=== PATIENT | female | born 1955 | race Caucasian/White ===

== ENCOUNTER → 2017-06-27 | Outpatient (CLI) | payer BC ==
[~2017-06-27] MED LIST: ALPR1 PO; AMOCLA500 PO; ARMODAFINIL150 MG PO; ASPI81CH PO; ATOR40TA PO; Amantadine100 M1 PO; Bisoprolol-Hct1 EAC1 PO; CALTRATE 600 +1 EACH PO; CHOL10002 PO; COPAXONE40 MG/1 ML SC; Estrace Vagin42.5 GM TOP; LEVSOD125 PO; ONDA4ODT MM; Omeprazole20 M1 PO; PROP80ER PO; UBID10 PO; VENL75ER PO; Xyzal5 MG PO
== END | disposition home or self-care (01) ==
LOC: LAB 07:27 → LAB SHORT 07:27
DX: D22.72 Melanocytic nevi of left lower limb, including hip (principal)
CPT/HCPCS: 88305

== ENCOUNTER 2017-10-11 07:47 | Day surgery (SDC) | payer BC ==
[2017-10-10 17:47] LABS: Hematocrit 23.9 % (33.0-51.0); Mean Corpuscular HGB 25.6 pg (26.0-34.0); Mean Corpuscular HGB Conc 29.3 g/dL (31.5-36.5); Mean Corpuscular Volume 88 fL (80-100); Mean Platelet Volume 9.7 fL (9.1-12.4); Platelet Count 301 K/mm3 (150-400); RDW Coefficient Variation 17.9 % (11.7-14.2); RDW Standard Deviation 56.7 fL (35.1-46.3); Red Blood Cell Count 2.73 M/mm3 (3.80-5.20); White Blood Cell Count 6.66 K/mm3 (4.00-11.30)
[2017-10-10 18:12] LABS: Alanine Aminotransfer (ALT/SGP 62 U/L (12-78); Albumin, Blood 2.8 g/dL (3.4-5.0); Albumin/Globulin Ratio 0.9 (0.8-1.8); Alk Phos 120 U/L (50-136); Amylase, Blood 28 U/L (25-115); Anion Gap 4 mmol/L (6-16); Aspartate Aminotrans (AST/SGOT 50 U/L (12-37); Bilirubin, Total 0.4 mg/dL (0.1-1.0); Blood Urea Nitrogen 5 mg/dL (8-24); Bun/Creatinine Ratio 6.5 (12.0-20.0); CO2, Blood 30 mmol/L (21-32); Calcium, Blood 8.2 mg/dL (8.5-10.1); Chloride, Blood 101 mmol/L (98-108); Creatinine, Blood 0.77 mg/dL (0.40-1.00); Globulin, Blood 3.2 g/dL (2.2-4.0); Glomerular Filtration Rate >60 (60-); Glucose, Blood 119 mg/dL (70-99); Potassium, Blood 3.4 mmol/L (3.5-5.5); Sodium, Blood 135 mmol/L (136-145)
[~2017-10-11 07:47] MED LIST changes: -AMOCLA500 PO; -ASPI81CH PO; -CALTRATE 600 +1 EACH PO; -CHOL10002 PO; -UBID10 PO
[2017-10-11] MEDS ORDERED: ASPI81CH PO (08:56)
[2017-10-11] MEDS ORDERED: UBID10 PO (08:57)
[2017-10-11] MEDS ORDERED: AMOCLA500 PO (08:57)
[2017-10-11] MEDS ORDERED: CALTRATE 600 +1 EACH PO (08:57)
[2017-10-11] MEDS ORDERED: CHOL10002 PO (08:58)
== END 2017-10-11 13:07 | disposition home or self-care (01) ==
LOC: ATC 07:47
PROVIDERS: Surgery Surgical Oncology
DX: D64.9 Anemia, unspecified (principal); C43.59 Malignant melanoma of other part of trunk; Z79.899 Other long term (current) drug therapy
CPT/HCPCS: 36415; 36430; 80053; 82150; 82533; 82670; 83690; 84439; 84443; 85027; 86850; 86900; 86901; 86923; J1642; J7030; P9016; Q0163

== ENCOUNTER → 2018-08-23 | Outpatient (CLI) | payer BC ==
[~2018-08-23] MED LIST changes: +AMOCLA500 PO; +ASPI81CH PO; +CALTRATE 600 +1 EACH PO; +CHOL10002 PO; +UBID10 PO
== END | disposition home or self-care (01) ==
LOC: LAB 16:10 → LAB SHORT 16:10
DX: R30.0 Dysuria (principal)
CPT/HCPCS: 87077; 87086; 87186

== ENCOUNTER → 2018-09-06 | Outpatient (CLI) | payer BC | END | disposition home or self-care (01) | LOC: LAB SHORT 14:59 → LAB 14:59 | DX: R30.0 Dysuria (principal) | CPT/HCPCS: 87077; 87086; 87186 ==

== ENCOUNTER 2019-03-29 16:25 | Inpatient (IN) | payer BC ==
[~2019-03-29] VITALS: Ht 165 cm; Wt 91.3 kg
[~2019-03-29 16:25] MED LIST changes: +DOCU100 PO; +HYDCOR10 PO; +IBUP800 PO; +IRON PO; +MELO7.5 PO; +OXYC5 PO
[2019-04-02] MEDS ORDERED: OPDIVO40 MG/4 ML IV (06:33)
--- NOTE | 2019-04-02 07:38 | NUR ---
History, Chart, Medications and Allergies reviewed before start of procedure.Patient confirms NPO status and agrees with scheduled surgery. Patient reports completing Chlorhexadine shower X2 prior to admission to hospital.Surgical site prepped with 2% Chlorhexidine cloth wipe.
--- NOTE | 2019-04-02 19:42 | NUR ---
SHIFT SUMMARY PT EATING AND DRINKING WELL. BEEN ASSISTED WITH ADL'S PRN. PT REPORTS NUMBNESS TO R THIGH GETTING BETTER. DR Rodriguez IS AWARE OF NUMBNESS TO R THIGH AREA. PT HAS VOIDED SINCE SURGERY. FAMILY IN/OUT OF ROOM. ALARM IN PLACE. PT WORKED WITH THERAPY.
--- NOTE | 2019-04-03 06:06 | NUR ---
PATIENT HAS BEEN UP TO THE BR WITH ASSISTANCE, WALKED DOWN THE HALLWAY WITH FWW AND TWO PEOPLE HOLDING THE GAIT BELT. SHE HAD MILD RT KNEE BUCKLEING AT BEGINNING OF THE WALK. PATIENT IS HAVING MORE PAIN THIS MORNING IN HER RT KNEE. NO ACUTE CHANGES.
[2019-04-03 06:21] LABS: BASOPHILS ABSOLUTE AUTO 0.02 K/mm3 (0.00-0.23); BASOPHILS PERCENT AUTO 0 % (0-2); EOSINOPHILS ABSOLUTE AUTO 0.04 K/mm3 (0.00-0.68); EOSINOPHILS PERCENT AUTO 1 % (0-6); Hematocrit 26.4 % (33.0-51.0); Hemoglobin 8.3 g/dL (11.5-16.0); IMMATURE GRAN ABSOLUTE AUTO 0.04 K/mm3 (0.00-0.10); IMMATURE GRAN PERCENT AUTO 1 % (0-1); LYMPHOCYTES ABSOLUTE AUTO 1.61 K/mm3 (0.84-5.20); LYMPHOCYTES PERCENT AUTO 19 % (21-46); MONOCYTES ABSOLUTE AUTO 1.03 K/mm3 (0.16-1.47); MONOCYTES PERCENT AUTO 12 % (4-13); Mean Corpuscular HGB 31.2 pg (26.0-34.0); Mean Corpuscular HGB Conc 31.4 g/dL (31.5-36.5); Mean Corpuscular Volume 99 fL (80-100); Mean Platelet Volume 9.9 fL (9.1-12.4); NEUTROPHILS ABSOLUTE AUTO 5.73 K/mm3 (1.96-9.15); NEUTROPHILS PERCENT AUTO 68 % (41-73); Platelet Count 164 K/mm3 (150-400); RDW Coefficient Variation 14.6 % (11.7-14.2); RDW Standard Deviation 52.1 fL (35.1-46.3); Red Blood Cell Count 2.66 M/mm3 (3.80-5.20); White Blood Cell Count 8.47 K/mm3 (4.00-11.30)
[2019-04-03 06:45] LABS: Anion Gap 8 mmol/L (6-16); Blood Urea Nitrogen 14 mg/dL (8-24); Bun/Creatinine Ratio 17.3 (12.0-20.0); CO2, Blood 26 mmol/L (21-32); Calcium, Blood 7.9 mg/dL (8.5-10.1); Chloride, Blood 107 mmol/L (98-108); Creatinine, Blood 0.81 mg/dL (0.40-1.00); Glomerular Filtration Rate >60 (60-); Glucose, Blood 115 mg/dL (70-99); Magnesium, Blood 1.8 mg/dL (1.6-2.4); Potassium, Blood 3.5 mmol/L (3.5-5.5); Sodium, Blood 141 mmol/L (136-145)
[2019-04-03] MEDS ORDERED: OXYC5 PO (15:28)
[2019-04-03] MEDS ORDERED: ASPI325EC PO (15:29)
--- NOTE | 2019-04-03 16:21 | NUR ---
DISCHARGE PT LEFT FOR HOME VIA WHEELCHAIR. LEFT WITH . DISCHARGE INSTRUCTIONS GONE OVER WITH PATIENT AND , DRESSING CHANGED BEFORE PT LEFT. EXTRA DRESSINGS SENT HOME WITH PATIENT. PRESCRIPTION GIVEN TO PATIENT. PATIENT MEDICATED FOR PAIN BEFORE LEAVING. TOLERATED THERAPY WELL TODAY. ABLE TO AMBULATE WELL.
== END 2019-04-03 16:16 | disposition home or self-care (01) | DRG 470 ==
LOC: SURS 04-02 05:53 → PRE IP 04-02 07:30 → SURS 04-02 11:22
PROVIDERS: ADMIT Orthopaedic Surgery
PROC: 0SR903Z Replacement of Right Hip Joint with Ceramic Synthetic Substitute, Open Approach (ICD-10-PCS; principal; 2019-04-02 07:30)
DX: M16.11 Unilateral primary osteoarthritis, right hip (principal); E03.9 Hypothyroidism, unspecified; I10 Essential (primary) hypertension; F41.9 Anxiety disorder, unspecified; Z87.891 Personal history of nicotine dependence
CPT/HCPCS: 36415; 72170; 80048; 83735; 85025; 86850; 86900; 86901; 88300; 97110; 97116; 97161; 97165; 97530; 97535; C1713; C1776; J0171; J0690; J0735; J1100; J1720; J1885; J2250; J2370; J2405; J2704; J2795; J3010; J7120

== ENCOUNTER → 2019-04-20 | Outpatient (CLI) | payer BC ==
[~2019-04-20] MED LIST changes: +ASPI325EC PO; +OPDIVO40 MG/4 ML IV
== END | disposition home or self-care (01) ==
LOC: LAB SHORT 14:21 → LAB EV 14:21
DX: N39.0 Urinary tract infection, site not specified (principal)
CPT/HCPCS: 87077; 87086; 87186

== ENCOUNTER 2019-06-22 06:21 | Emergency (ER) | payer BC ==
[~2019-06-22] VITALS: Ht 167.6 cm; Wt 83.5 kg
[2019-06-22] MEDS ORDERED: Aspir 8181 MG PO (07:16)
[2019-06-22] MEDS ORDERED: GLATIRAMER40 MG/1 ML SQ (07:18)
[2019-06-22] MEDS ORDERED: ALPR1 PO (07:18)
[2019-06-22] MEDS ORDERED: IBU800 MG PO (07:19)
[2019-06-22 08:50] LABS: BASOPHILS PERCENT AUTO 0 % (0-2); EOSINOPHILS PERCENT AUTO 0 % (0-6); Hematocrit 33.6 % (33.0-51.0); Hemoglobin 10.5 g/dL (11.5-16.0); IMMATURE GRAN ABSOLUTE AUTO 0.02 K/mm3 (0.00-0.10); IMMATURE GRAN PERCENT AUTO 0 % (0-1); LYMPHOCYTES ABSOLUTE AUTO 0.83 K/mm3 (0.84-5.20); LYMPHOCYTES PERCENT AUTO 17 % (21-46); MONOCYTES ABSOLUTE AUTO 0.51 K/mm3 (0.16-1.47); MONOCYTES PERCENT AUTO 10 % (4-13); Mean Corpuscular HGB 30.9 pg (26.0-34.0); Mean Corpuscular HGB Conc 31.3 g/dL (31.5-36.5); Mean Corpuscular Volume 99 fL (80-100); Mean Platelet Volume 10.6 fL (9.1-12.4); NEUTROPHILS ABSOLUTE AUTO 3.68 K/mm3 (1.96-9.15); NEUTROPHILS PERCENT AUTO 73 % (41-73); Platelet Count 143 K/mm3 (150-400); RDW Coefficient Variation 14.2 % (11.7-14.2); RDW Standard Deviation 51.5 fL (35.1-46.3); White Blood Cell Count 5.04 K/mm3 (4.00-11.30)
[2019-06-22 09:07] LABS: Anion Gap 7 mmol/L (6-16); Blood Urea Nitrogen 11 mg/dL (8-24); Bun/Creatinine Ratio 15.9 (12.0-20.0); CO2, Blood 24 mmol/L (21-32); Chloride, Blood 102 mmol/L (98-108); Creatinine, Blood 0.69 mg/dL (0.40-1.00); Glomerular Filtration Rate >60 (60-); Glucose, Blood 110 mg/dL (70-99); Potassium, Blood 4.1 mmol/L (3.5-5.5); Sodium, Blood 133 mmol/L (136-145)
[2019-06-22 09:12] LABS: Influenza A Positive (NEGATIVE); Influenza B Negative (NEGATIVE)
[2019-06-22] MEDS ORDERED: Guaifenesin-Co118 ML PO (09:24)
[2019-06-22] MEDS ORDERED: Tamiflu75 MG PO (09:24)
== END 2019-06-22 09:37 | disposition home or self-care (01) ==
LOC: ER 06:21
PROVIDERS: Physician Assistant
DX: J10.1 Influenza due to other identified influenza virus with other respiratory manifestations (principal); Z91.041 Radiographic dye allergy status; Z79.899 Other long term (current) drug therapy; Z79.82 Long term (current) use of aspirin; Z87.891 Personal history of nicotine dependence
CPT/HCPCS: 36415; 71046; 80048; 85025; 87081; 87430; 87804; 99283-25; J7030

== ENCOUNTER 2020-10-30 03:16 | Inpatient (IN) | payer BC ==
[~2020-10-30] VITALS: Ht 165.1 cm; Wt 88.0 kg
[~2020-10-30 03:16] MED LIST changes: +Aspir 8181 MG PO; +COPAXONE40 MG/1 ML; +DESVENLAFAXINE100 MG PO; +GLATIRAMER40 MG/1 ML SQ; +Guaifenesin-Co118 ML PO; +IBU800 MG PO; +Inderal40 MG PO; +Tamiflu75 MG PO
[2020-10-30 03:49] LABS: BASOPHILS ABSOLUTE AUTO 0.02 K/mm3 (0.00-0.23); BASOPHILS PERCENT AUTO 1 % (0-2); EOSINOPHILS ABSOLUTE AUTO 0.02 K/mm3 (0.00-0.68); EOSINOPHILS PERCENT AUTO 1 % (0-6); Hematocrit 39.8 % (33.0-51.0); Hemoglobin 12.6 g/dL (11.5-16.0); IMMATURE GRAN ABSOLUTE AUTO 0.01 K/mm3 (0.00-0.10); IMMATURE GRAN PERCENT AUTO 0 % (0-1); LYMPHOCYTES ABSOLUTE AUTO 0.52 K/mm3 (0.84-5.20); LYMPHOCYTES PERCENT AUTO 17 % (21-46); MONOCYTES ABSOLUTE AUTO 0.36 K/mm3 (0.16-1.47); MONOCYTES PERCENT AUTO 12 % (4-13); Mean Corpuscular HGB 29.3 pg (26.0-34.0); Mean Corpuscular HGB Conc 31.7 g/dL (31.5-36.5); Mean Corpuscular Volume 93 fL (80-100); NEUTROPHILS ABSOLUTE AUTO 2.13 K/mm3 (1.96-9.15); NEUTROPHILS PERCENT AUTO 70 % (41-73); Platelet Count 116 K/mm3 (150-400); RDW Coefficient Variation 15.2 % (11.7-14.2); RDW Standard Deviation 51.8 fL (35.1-46.3); White Blood Cell Count 3.06 K/mm3 (4.00-11.30)
[2020-10-30 04:06] LABS: Albumin, Blood 3.6 g/dL (3.4-5.0); Albumin/Globulin Ratio 1.1 (0.8-1.8); Bilirubin, Total 0.3 mg/dL (0.1-1.0); Bun/Creatinine Ratio 16.1 (12.0-20.0); Calcium, Blood 8.6 mg/dL (8.5-10.1); Creatinine, Blood 0.99 mg/dL (0.40-1.00); Globulin, Blood 3.2 g/dL (2.2-4.0); Potassium, Blood 3.8 mmol/L (3.5-5.5); Total Protein, Blood 6.8 g/dL (6.4-8.2)
[2020-10-30 05:40] LABS: Source, Urine Clean Catch
[2020-10-30 05:46] LABS: Appearance, Urine Hazy (Clear); Bilirubin, Urine Neg (Neg); Blood, Urine 1+ (Neg); Color, Urine Yellow (P-Yellow); Glucose Qualitative, Urine Neg (Neg); Ketones, Urine Neg (Neg); Leukocyte Esterase, Urine 3+ (Neg); Nitrite, Urine Pos (Neg); Protein, Urine 1+ (Neg); Specific Gravity, Urine 1.015 (1.003-1.022); Urobilinogen, Urine NORM (Normal)
[2020-10-30 05:58] LABS: White Blood Cells, Urine 25-50 /hpf (0-5)
[2020-10-30 05:59] LABS: Bacteria Many /hpf; Squamous Epithelial Cells Few /hpf (Few); Transitional Epithelial Cells Few /hpf (0-Rare)
[2020-10-30 10:28] LABS: Source, Urine Catheter
[2020-10-30 10:45] LABS: Appearance, Urine Hazy (Clear); Bilirubin, Urine Neg (Neg); Blood, Urine 2+ (Neg); Color, Urine Yellow (P-Yellow); Glucose Qualitative, Urine Neg (Neg); Ketones, Urine 1+ (Neg); Leukocyte Esterase, Urine 3+ (Neg); Nitrite, Urine Neg (Neg); Protein, Urine 2+ (Neg); Urobilinogen, Urine NORM (Normal)
[2020-10-30 10:57] LABS: White Blood Cells, Urine TNTC /hpf (0-5)
[2020-10-30 10:58] LABS: Bacteria Mod /hpf; Squamous Epithelial Cells Not Seen /hpf (Few)
--- NOTE | 2020-10-30 11:38 | NUR ---
RECIEVED REPORT FROM STEVE WHEELER RN, AT 0820. PATIENT ARRIVED TO ROOM 339 @ 0837 WITH AT BEDSIDE. ADMISSION ASSESSMENT, H&P AND MED REC COMPLETED WITH THE ASSISTANCE OF PATIENTS . IV FLUIDS RUNNING PER EMAR. U/A COLLECTED VIA STRAIGHT CATH AND SENT TO THE LAB. CALL LIGHT WITHIN REACH.
--- NOTE | 2020-10-30 17:14 | NUR ---
PATIENT PLEASANT AND COOPERATIVE WITH STAFF. DENIES PAIN AND DISCOMFORT HOWEVER VERY LETHARGIC AND WEAK. BEDREST AT THIS TIME. MIXED CONTINENT/INCONTINENT WITH BLADDER AND BOWELS. BP WAS ELEVATED UPON ADMISSION TO THE FLOOR BUT HAS SINCE COME DOWN AND VITALS ARE STABLE. BROUGHT IN PATIENTS PRISTIQ MEDICATION FROM HOME AND IT WAS VERIFIED BY PHARMACY. PATIENT RESTING IN BED AT THIS TIME. CALL LIGHT IN REACH.
--- NOTE | 2020-10-31 03:48 | NUR ---
SHIFT SUMMARY: AAOX3. AFEB. PT FEELING BETTER TONIGHT, LESS LETHARGIC, SPEAKING MORE. NO LONGER DIAPHORETIC. STATES SHE IS FEELING STRONGER AND IS ASKING ABOUT GETTING UP OOB. ENCOURAGED PT TO WAIT UNTIL CLEARED BY THERAPY. USING BEDPAN. CONTINENT. IV FLUIDS INFUSING PER ORDERS. MED X 1 FOR HEADACHE. SLEEPING INTERMITTENTLY THROUGH THE NIGHT. NO ACUTE OVERNIGHT EVENTS. WCTM.
[2020-10-31 05:33] LABS: Hematocrit 36.7 % (33.0-51.0); Hemoglobin 11.6 g/dL (11.5-16.0); Mean Corpuscular HGB 29.1 pg (26.0-34.0); Mean Corpuscular HGB Conc 31.6 g/dL (31.5-36.5); Mean Corpuscular Volume 92 fL (80-100); Mean Platelet Volume 10.2 fL (9.1-12.4); Platelet Count 105 K/mm3 (150-400); RDW Coefficient Variation 15.1 % (11.7-14.2); Red Blood Cell Count 3.98 M/mm3 (3.80-5.20); White Blood Cell Count 2.26 K/mm3 (4.00-11.30)
[2020-10-31 05:51] LABS: BAND PERCENT MAN 9 % (0-8); BASOPHILS ABSOLUTE MAN 0.04 K/mm3 (0.00-0.23); BASOPHILS PERCENT MAN 2 % (0-2); EOSINOPHILS ABSOLUTE MAN 0.09 K/mm3 (0.00-0.68); EOSINOPHILS PERCENT MAN 4 % (0-6); LYMPHOCYTES ABSOLUTE MAN 0.54 K/mm3 (0.84-5.20); LYMPHOCYTES PERCENT MAN 24 % (21-46); MONOCYTES ABSOLUTE MAN 0.29 K/mm3 (0.16-1.47); MONOCYTES PERCENT MAN 13 % (4-13); NEUTROPHILS ABSOLUTE MAN 1.28 K/mm3 (1.96-9.15); SEG NEUTROPHILS PERCENT MAN 48 % (41-73); TOTAL CELLS COUNTED 100
[2020-10-31 05:58] LABS: Anion Gap 7 mmol/L (6-16); Blood Urea Nitrogen 13 mg/dL (8-24); CO2, Blood 27 mmol/L (21-32); Calcium, Blood 8.4 mg/dL (8.5-10.1); Chloride, Blood 101 mmol/L (98-108); Creatinine, Blood 0.81 mg/dL (0.40-1.00); Glomerular Filtration Rate >60 (60-); Glucose, Blood 98 mg/dL (70-99); Potassium, Blood 3.3 mmol/L (3.5-5.5); Sodium, Blood 135 mmol/L (136-145)
--- NOTE | 2020-10-31 17:09 | NUR ---
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
--- NOTE | 2020-11-01 03:32 | NUR ---
SHIFT SUMMARY: VSS. AFEB. AAOX4. INDEPENDENT IN ROOM. REPORTS LOW ABD PAIN IS RESOLVED. DENIES DYSURIA. SLEEPING INTERMITTENTLY. MEDICATED FOR ANXIETY PER PT REQUEST X 2. NO ACUTE OVERNIGHT EVENTS. PT STATES SHE IS FEELING MUCH BETTER IN GENERAL. WCTM.
[2020-11-01] MEDS ORDERED: VISBIOME 112.51 EACH PO (10:30)
[2020-11-01] MEDS ORDERED: ASPIR 8181 M1 PO (10:30)
[2020-11-01] MEDS ORDERED: CEFU500T30 PO (10:31)
--- NOTE | 2020-11-01 10:58 | NUR ---
SUMMARY/DISCHARGE PT DISCHARGED TO HOME, PT AND SPOUSE VERBALIZED UNDERSTANDING OF DISCHARGE INSTRUCTIONS REGARDING FOLLOW UP AND MEDICATONS, PTS MEDS FAXED TO [facility]IMARY [facility] IS CLOSED, PT STATES SHE WILL CALL HER PCP OFFICE MONDAY FOR FOLLOW UP, PT TAKEN OUT SAFELY VIA WHEELCHAIR
== END 2020-11-01 10:54 | disposition home or self-care (01) | DRG 872 ==
LOC: ER 03:16 → MEDS 07:41
PROVIDERS: Emergency Medicine; Internal Medicine; ADMIT Family Medicine
DX: A41.51 Sepsis due to Escherichia coli [E. coli] (principal); N39.0 Urinary tract infection, site not specified; E27.40 Unspecified adrenocortical insufficiency; Z20.822 Contact with and (suspected) exposure to COVID-19; E03.9 Hypothyroidism, unspecified; C43.9 Malignant melanoma of skin, unspecified; G35 Multiple sclerosis; K58.9 Irritable bowel syndrome, unspecified; Z96.641 Presence of right artificial hip joint; Z90.49 Acquired absence of other specified parts of digestive tract; Z90.89 Acquired absence of other organs; Z90.710 Acquired absence of both cervix and uterus; Z79.82 Long term (current) use of aspirin; Z79.899 Other long term (current) drug therapy
CPT/HCPCS: 36415; 70450; 71046; 80048; 80053; 81001; 83605; 85025; 87040; 87077; 87086; 87186; 93005; 93010; 96365; 97110; 97162; 97166; 97530; 99285-25; A9270; J0696; J1650; J7050; J7120

== ENCOUNTER → 2021-03-20 | Outpatient (CLI) | payer BC ==
[~2021-03-20] MED LIST changes: +ASPIR 8181 M1 PO; +CEFU500T30 PO; +VISBIOME 112.51 EACH PO
== END | disposition home or self-care (01) ==
LOC: LAB SHORT 16:23 → LAB 16:23
DX: N39.0 Urinary tract infection, site not specified (principal)
CPT/HCPCS: 87077; 87086; 87186

== ENCOUNTER 2021-11-17 16:43 | Emergency (ER) | payer MEDICARE ==
[~2021-11-17] VITALS: Ht 167.6 cm; Wt 102.1 kg
[~2021-11-17 16:43] MED LIST changes: +ALBU90OI INH; +AMAN100; -Amantadine100 M1 PO; +CALTRATE 600+D1 EAC1 PO; +COPAXONE40 MG/1 ML SQ; +COQ1050 MG PO; +Colace100 MG PO; +Estrace Vagin42.5 GM PV; +GLUC500 PO; +MAGCIT300; +MERIBIN5 MG PO; +MIRT15 PO; +MOBIC15 MG PO; +NASACORT10.8 ML; +NUVIGIL150 MG PO; +Prednisone10 MG PO; +Seroquel Xr50 MG PO; +VITAMIN D5000 UNIT PO; +Vitamin B-Comp1 EACH; +YERVOY50 MG/101 IV
[2021-11-17 17:26] LABS: BASOPHILS ABSOLUTE AUTO 0.04 K/mm3 (0.00-0.23); BASOPHILS PERCENT AUTO 1 % (0-2); EOSINOPHILS ABSOLUTE AUTO 0.07 K/mm3 (0.00-0.68); EOSINOPHILS PERCENT AUTO 1 % (0-6); Hematocrit 44.1 % (33.0-51.0); Hemoglobin 14.3 g/dL (11.5-16.0); IMMATURE GRAN ABSOLUTE AUTO 0.06 K/mm3 (0.00-0.10); IMMATURE GRAN PERCENT AUTO 1 % (0-1); LYMPHOCYTES PERCENT AUTO 14 % (21-46); MONOCYTES ABSOLUTE AUTO 0.59 K/mm3 (0.16-1.47); MONOCYTES PERCENT AUTO 9 % (4-13); Mean Corpuscular HGB 31.9 pg (26.0-34.0); Mean Corpuscular HGB Conc 32.4 g/dL (31.5-36.5); Mean Corpuscular Volume 98 fL (80-100); NEUTROPHILS ABSOLUTE AUTO 4.68 K/mm3 (1.96-9.15); NEUTROPHILS PERCENT AUTO 74 % (41-73); Platelet Count 219 K/mm3 (150-400); RDW Coefficient Variation 15.2 % (11.7-14.2); RDW Standard Deviation 54.4 fL (35.1-46.3); Red Blood Cell Count 4.48 M/mm3 (3.80-5.20); White Blood Cell Count 6.34 K/mm3 (4.00-11.30)
[2021-11-17 17:44] LABS: Albumin, Blood 3.7 g/dL (3.4-5.0); Bilirubin, Total 0.5 mg/dL (0.1-1.0); Bun/Creatinine Ratio 14.4 (12.0-20.0); Creatinine, Blood 0.9 mg/dL (0.40-1.00); Globulin, Blood 3.6 g/dL (2.2-4.0); Potassium, Blood 3.7 mmol/L (3.5-5.5); Total Protein, Blood 7.3 g/dL (6.4-8.2)
[2021-11-17] MEDS ORDERED: METO50ER PO (21:20)
[2021-11-17] MEDS ORDERED: VENLAFAXINE HC150 MG PO (21:20)
[2021-11-17] MEDS ORDERED: PREG150 PO (21:21)
[2021-11-17 21:52] LABS: Source, Urine Clean Catch
[2021-11-17 21:58] LABS: Bilirubin, Urine Neg (Neg); Blood, Urine Neg (Neg); Glucose Qualitative, Urine Neg (Neg); Ketones, Urine Neg (Neg); Leukocyte Esterase, Urine 1+ (Neg); Nitrite, Urine Pos (Neg); Protein, Urine Neg (Neg); Urobilinogen, Urine NORM (Normal)
[2021-11-17 21:59] LABS: Appearance, Urine Clear (Clear); Color, Urine Pale Yellow (P-Yellow)
[2021-11-17 22:00] LABS: Bacteria Many /hpf; Red Blood Cells, Urine Not Seen /hpf (0-2); Squamous Epithelial Cells Not Seen /hpf (Few)
[2021-11-17] MEDS ORDERED: CEPH500 PO (22:08)
== END 2021-11-17 22:30 | disposition home or self-care (01) ==
LOC: ER 16:43
PROVIDERS: Physician Assistant
DX: R19.7 Diarrhea, unspecified (principal); R53.1 Weakness; N39.0 Urinary tract infection, site not specified; G35 Multiple sclerosis; Z79.899 Other long term (current) drug therapy; Z79.52 Long term (current) use of systemic steroids; Z96.641 Presence of right artificial hip joint; Z91.041 Radiographic dye allergy status; Z85.820 Personal history of malignant melanoma of skin
CPT/HCPCS: 36415; 80053; 81001; 85025; 96360; 99284-25; A9270; J7030

== ENCOUNTER 2021-12-26 18:34 | Emergency (ER) | payer SELFPAY ==
[~2021-12-26] VITALS: Ht 167.6 cm; Wt 88.5 kg
[~2021-12-26 18:34] MED LIST changes: +CEPH500 PO; +METO50ER PO; +PREG150 PO; +VENLAFAXINE HC150 MG PO
[2021-12-26 19:40] LABS: Source, Urine Clean Catch
[2021-12-26 19:42] LABS: Appearance, Urine Clear (Clear); Bilirubin, Urine Neg (Neg); Blood, Urine 2+ (Neg); Color, Urine Yellow (P-Yellow); Glucose Qualitative, Urine Neg (Neg); Ketones, Urine Neg (Neg); Leukocyte Esterase, Urine 3+ (Neg); Nitrite, Urine Neg (Neg); Protein, Urine Neg (Neg); Specific Gravity, Urine 1.015 (1.003-1.022); Urobilinogen, Urine NORM (Normal)
[2021-12-26 19:49] LABS: Bacteria Many /hpf; Squamous Epithelial Cells Mod /hpf (Few); White Blood Cells, Urine 25-50 /hpf (0-5)
[2021-12-26] MEDS ORDERED: LEVO750 PO (20:40)
== END 2021-12-26 20:53 | disposition home or self-care (01) ==
LOC: ER 18:34
PROVIDERS: Physician Assistant
DX: N39.0 Urinary tract infection, site not specified (principal); Z79.899 Other long term (current) drug therapy; Z79.52 Long term (current) use of systemic steroids; Z87.891 Personal history of nicotine dependence
CPT/HCPCS: 81001; 87077; 87086; 87186; A9270

== ENCOUNTER → 2022-11-23 | Outpatient (CLI) | payer MEDICARE, OTHER ==
[~2022-11-23] MED LIST changes: +CEFD300 PO; +LEVO750 PO
== END | disposition home or self-care (01) ==
LOC: LAB 15:03 → LAB SHORT 15:03
DX: N39.0 Urinary tract infection, site not specified (principal)
CPT/HCPCS: 87086

== ENCOUNTER → 2024-04-08 | Outpatient (CLI) | payer OTHER | END | disposition home or self-care (01) | LOC: LAB SHORT 15:34 → LAB 15:34 | DX: N39.0 Urinary tract infection, site not specified (principal) | CPT/HCPCS: 87077; 87086; 87186 ==

== ENCOUNTER 2024-07-14 13:51 | Observation (INO) | payer BC ==
[~2024-07-14] VITALS: Ht 167.6 cm; Wt 72.9 kg
[~2024-07-14 13:51] MED LIST changes: +ACETAMINOPHEN500 M2 PO; +AMAN100 PO; +Budeprion Xl300 MG PO; +DESV50 PO; +DULO60 PO; +EUTHYROX125 MCG PO; +FAMO20 PO; +FERSU300 PO; +FOLI1 PO; -HYDCOR10 PO; +HYDCOR20 PO; -LEVSOD125 PO; +METO100ER PO; +MIRABEGRON ER25 MG PO; +MYRBETRIQ25 MG PO; +Magnesium250 MG PO; +Methocarbamol750 MG PO; +NEBI5 PO; +OMEP20ER PO; -Omeprazole20 M1 PO; +PHENA200 PO; +PREG200 PO; +Primidone50 MG PO; +Robaxin750 MG PO; +SENNA LAXATIVE8.6 MG PO; +VENL150ER PO; +Vitamin D1000 UNI1 PO
[2024-07-14 14:40] LABS: BASOPHILS ABSOLUTE AUTO 0.11 K/mm3 (0.00-0.23); BASOPHILS PERCENT AUTO 1 % (0-2); EOSINOPHILS ABSOLUTE AUTO 0.32 K/mm3 (0.00-0.68); EOSINOPHILS PERCENT AUTO 3 % (0-6); Hemoglobin 9.7 g/dL (11.5-16.0); IMMATURE GRAN ABSOLUTE AUTO 0.04 K/mm3 (0.00-0.10); IMMATURE GRAN PERCENT AUTO 0 % (0-1); LYMPHOCYTES PERCENT AUTO 27 % (21-46); MONOCYTES ABSOLUTE AUTO 0.78 K/mm3 (0.16-1.47); MONOCYTES PERCENT AUTO 8 % (4-13); Mean Corpuscular HGB 29.5 pg (26.0-34.0); Mean Corpuscular HGB Conc 31.3 g/dL (31.5-36.5); Mean Corpuscular Volume 94 fL (80-100); NEUTROPHILS ABSOLUTE AUTO 5.97 K/mm3 (1.96-9.15); NEUTROPHILS PERCENT AUTO 60 % (41-73); Platelet Count 414 K/mm3 (150-400); RDW Coefficient Variation 13.8 % (11.7-14.2); RDW Standard Deviation 47.4 fL (35.1-46.3); Red Blood Cell Count 3.29 M/mm3 (3.80-5.20); White Blood Cell Count 9.92 K/mm3 (4.00-11.30)
[2024-07-14 14:54] LABS: Influenza A, PCR NEGATIVE (NEGATIVE); Influenza B, PCR NEGATIVE (NEGATIVE); Resp Syncytial Virus, PCR NEGATIVE (NEGATIVE); SARS-Cov-2 (COVID-19) PCR, MMC NEGATIVE (NEGATIVE)
[2024-07-14 15:04] LABS: Albumin, Blood 3.7 g/dL (3.4-5.0); Albumin/Globulin Ratio 1.2 (0.8-1.8); Bilirubin, Total 0.3 mg/dL (0.1-1.0); Bun/Creatinine Ratio 22.2 (12.0-20.0); Calcium, Blood 9.4 mg/dL (8.5-10.1); Creatinine, Blood 0.9 mg/dL (0.40-1.00); Magnesium, Blood 1.9 mg/dL (1.6-2.4); Potassium, Blood 4.1 mmol/L (3.5-5.5); Total Protein, Blood 6.7 g/dL (6.4-8.2)
[2024-07-14] MEDS ORDERED: PLAVIX75 MG PO (16:48)
[2024-07-14] MEDS ORDERED: TELMISARTAN40 MG PO (16:48)
[2024-07-14] MEDS ORDERED: Cortef20 MG PO (16:52)
[2024-07-14] MEDS ORDERED: PROBIOTIC ACID1 EAC7 PO (16:54)
[2024-07-14] MEDS ORDERED: NS 1,000 ML IV SCH ×3 (17:55→23:05)
[2024-07-14] MEDS ORDERED: FLU VACC TS2024-25(6MOS UP)/PF 45 MCG/0.5 ML SYRINGE IM ONE (18:50)
[2024-07-14] MEDS ORDERED: Ondansetron HCl 2 MG / ML 2ML Vial IV PRN (18:50)
[2024-07-14] MEDS ORDERED: FentaNYL Citrate 50 MCG/ML 2 ML Injection IV PRN ×2 (18:50→19:55)
[2024-07-14] MEDS ORDERED: Enoxaparin 40 MG/0.4 ML SYR SC SCH (19:00)
[2024-07-14] MEDS ORDERED: MethylPREDNISolone Sod Succ 125 MG Vial IV ONE (19:20)
[2024-07-14] MEDS ORDERED: DiphenhydrAMINE HCl 50 MG/ML 1ML Vial IV ONE (19:25)
[2024-07-14] MEDS ORDERED: Aspirin 325 MG Tab PO ONE (19:25)
[2024-07-14] MEDS ORDERED: Nitroglycerin 0.4 MG SUBL SL PRN (20:00)
[2024-07-14] MEDS ORDERED: Pantoprazole Sodium 40 MG Injection IV SCH (20:17)
[2024-07-14] MEDS ORDERED: Mag Hydrox/Al Hydrox/Simeth 72 ML,Lidocaine 2% Viscous Soln 36 ML,Atropine/Scopalam/Hyo... PO PRN (20:20)
[2024-07-14] MEDS ORDERED: Acetaminophen 325 MG TABLET PO PRN (23:10)
[2024-07-15] VITALS (11 sets, daily range): BP systolic 98–176; BP diastolic 47–143
[2024-07-15] MEDS ORDERED: Levothyroxine Sodium 0.125 MG Tab PO SCH (06:00)
[2024-07-15] MEDS ORDERED: Trospium Chloride 20 MG Tab PO SCH (06:00)
[2024-07-15 07:27] LABS: BASOPHILS ABSOLUTE AUTO 0.02 K/mm3 (0.00-0.23); BASOPHILS PERCENT AUTO 0 % (0-2); EOSINOPHILS PERCENT AUTO 0 % (0-6); Hemoglobin 8.3 g/dL (11.5-16.0); IMMATURE GRAN ABSOLUTE AUTO 0.05 K/mm3 (0.00-0.10); IMMATURE GRAN PERCENT AUTO 1 % (0-1); LYMPHOCYTES ABSOLUTE AUTO 1.01 K/mm3 (0.84-5.20); LYMPHOCYTES PERCENT AUTO 10 % (21-46); MONOCYTES ABSOLUTE AUTO 0.05 K/mm3 (0.16-1.47); MONOCYTES PERCENT AUTO 1 % (4-13); Mean Corpuscular HGB 30.1 pg (26.0-34.0); Mean Corpuscular HGB Conc 31.9 g/dL (31.5-36.5); Mean Corpuscular Volume 94 fL (80-100); Mean Platelet Volume 10.5 fL (9.1-12.4); NEUTROPHILS PERCENT AUTO 89 % (41-73); Platelet Count 336 K/mm3 (150-400); RDW Coefficient Variation 14.1 % (11.7-14.2); RDW Standard Deviation 47.4 fL (35.1-46.3); Red Blood Cell Count 2.76 M/mm3 (3.80-5.20); White Blood Cell Count 10.53 K/mm3 (4.00-11.30)
[2024-07-15 07:35] LABS: Albumin, Blood 3.4 g/dL (3.4-5.0); Albumin/Globulin Ratio 1.2 (0.8-1.8); Bilirubin, Total 0.2 mg/dL (0.1-1.0); Bun/Creatinine Ratio 28.9 (12.0-20.0); Calcium, Blood 8.4 mg/dL (8.5-10.1); Creatinine, Blood 0.69 mg/dL (0.40-1.00); Globulin, Blood 2.8 g/dL (2.2-4.0); Potassium, Blood 3.9 mmol/L (3.5-5.5); Total Protein, Blood 6.2 g/dL (6.4-8.2)
[2024-07-15] MEDS ORDERED: Aspirin 81 MG TabEC PO SCH (09:00)
[2024-07-15] MEDS ORDERED: Amantadine HCl 100 MG Cap PO SCH ×2 (09:00→18:00)
[2024-07-15] MEDS ORDERED: Clopidogrel Bisulfate 75 MG Tab PO SCH (09:00)
[2024-07-15] MEDS ORDERED: Lactobacil 2-S.Thermo-Bifido 1 1 Cap PO SCH (09:00)
[2024-07-15] MEDS ORDERED: Hydrocortisone 20 MG Tab PO SCH ×2 (09:00→21:00)
[2024-07-15] MEDS ORDERED: Venlafaxine HCl 75 MG CapCR PO SCH (09:00)
[2024-07-15] MEDS ORDERED: buPROPion HCL 150 MG TAB.SR.12H PO SCH (09:00)
[2024-07-15] MEDS ORDERED: Metoprolol Succinate 50 MG TABCR PO SCH (09:00)
[2024-07-15] MEDS ORDERED: Hydrocortisone Sod Succinate 100 MG Vial IV ONE (09:55)
[2024-07-15] MEDS ORDERED: NS 250 ML IV ONE (12:38)
[2024-07-15] MEDS ORDERED: Verapamil HCL 2.5 MG/ML 2ML Injection ONE (12:38)
[2024-07-15] MEDS ORDERED: NS 1,000 ML IV ONE ×2 (12:39→13:46)
[2024-07-15] MEDS ORDERED: Nitroglycerin 2 MG/20 ML BTL ONE (12:39)
[2024-07-15] MEDS ORDERED: Heparin Sodium 1000 Units/ML 10ML MDV ONE (12:39)
[2024-07-15] MEDS ORDERED: DiphenhydrAMINE HCl 50 MG/ML 1ML Vial ONE (13:45)
[2024-07-15] MEDS ORDERED: Midazolam HCl 1MG / ML 2ML Vial ONE ×2 (13:46→13:59)
[2024-07-15] MEDS ORDERED: FentaNYL Citrate 50 MCG/ML 2 ML Injection ONE ×2 (13:46→13:59)
[2024-07-15] MEDS ORDERED: Famotidine 10 MG/ML 2ML Vial ONE (13:46)
[2024-07-15] MEDS ORDERED: Hydrocortisone Sod Succinate 100 MG Vial ONE (14:03)
[2024-07-15] MEDS ORDERED: Clopidogrel Bisulfate 300 MG Cap ONE (14:21)
--- NOTE | 2024-07-15 18:34 | NUR ---
SHIFT SUMMARY: PT IS A NEW ADMIT, ARRIVING FROM ER APPROX 1230, THEN TO RELEASE COORDINATOR APPROX 1330 AND BACK TO ROOM APPROX 1500. PT IS A&Ox4, ANSWERING QUESTIONS APPROPRIATELY, IS COOPERATIVE W/CARE. PT HAS DENIED SOB SINCE ADMISSION, O2 SATS MAINTAINED >93% ON RA. PT HAS ALSO DENIED CP, SR ON MONITOR W/RATE 70s-80s, TR BAND TO R RADIAL IN THE PROCESS OF DEFLATING (PT NEEDED TO BE FREQUENTLY REMINDED NOT TO USE HER R ARM, BUT APPEARS TO BE DOING BETTER). HEART HEALTHY DIET IN PLACE, PT EDUCATED ON LOW SODIUM DIET. PT RESTING IN BED W/FAMILY AT BEDSIDE, CALL LIGHT IN REACH.
[2024-07-15] MEDS ORDERED: Hydrocortisone 10 MG Tab PO SCH (21:00)
--- NOTE | 2024-07-15 22:53 | NUR ---
SHIFT SUMMARY- PCI SITE RECOVERED NEURO: WNL- BASELINE MS DIAGNOSIS CARDIAC: WNL-ON TELE LUNGS: WNL GI/:WNL SKIN: RIGHT RADIAL PCI SITE WITHOUT HEMATOMA PAIN. DRESSING C/D/I.
[2024-07-16] MEDS ORDERED: DiphenhydrAMINE HCL 25 MG Cap PO ONE (01:00)
[2024-07-16] MEDS ORDERED: DiphenhydrAMINE HCL 25 MG Cap PO PRN (01:00)
[2024-07-16 04:33] LABS: BASOPHILS ABSOLUTE AUTO 0.03 K/mm3 (0.00-0.23); BASOPHILS PERCENT AUTO 0 % (0-2); EOSINOPHILS ABSOLUTE AUTO 0.02 K/mm3 (0.00-0.68); EOSINOPHILS PERCENT AUTO 0 % (0-6); Hematocrit 24.3 % (33.0-51.0); Hemoglobin 7.5 g/dL (11.5-16.0); IMMATURE GRAN ABSOLUTE AUTO 0.04 K/mm3 (0.00-0.10); IMMATURE GRAN PERCENT AUTO 0 % (0-1); LYMPHOCYTES ABSOLUTE AUTO 1.53 K/mm3 (0.84-5.20); LYMPHOCYTES PERCENT AUTO 13 % (21-46); MONOCYTES ABSOLUTE AUTO 0.97 K/mm3 (0.16-1.47); MONOCYTES PERCENT AUTO 9 % (4-13); Mean Corpuscular HGB 29.4 pg (26.0-34.0); Mean Corpuscular HGB Conc 30.9 g/dL (31.5-36.5); Mean Corpuscular Volume 95 fL (80-100); Mean Platelet Volume 10.4 fL (9.1-12.4); NEUTROPHILS ABSOLUTE AUTO 8.81 K/mm3 (1.96-9.15); NEUTROPHILS PERCENT AUTO 77 % (41-73); Platelet Count 308 K/mm3 (150-400); RDW Coefficient Variation 14.5 % (11.7-14.2); RDW Standard Deviation 49.4 fL (35.1-46.3); Red Blood Cell Count 2.55 M/mm3 (3.80-5.20)
[2024-07-16 04:49] LABS: Albumin, Blood 3.4 g/dL (3.4-5.0); Albumin/Globulin Ratio 1.3 (0.8-1.8); Bilirubin, Total 0.2 mg/dL (0.1-1.0); Bun/Creatinine Ratio 32.4 (12.0-20.0); Calcium, Blood 8.9 mg/dL (8.5-10.1); Creatinine, Blood 0.93 mg/dL (0.40-1.00); Globulin, Blood 2.7 g/dL (2.2-4.0); Potassium, Blood 3.4 mmol/L (3.5-5.5); Total Protein, Blood 6.1 g/dL (6.4-8.2)
[2024-07-16 04:58] VITALS: BP 116/67
[2024-07-16] MEDS ORDERED: Pantoprazole Sodium 40 MG Tab PO SCH (06:00)
[2024-07-16 07:17] VITALS: BP 126/76
[2024-07-16] MEDS ORDERED: Potassium Chloride 20 MEQ TabCR PO ONE (09:25)
--- NOTE | 2024-07-16 13:11 | NUR ---
DISCHARGE: PT HAS BEEN CLEARED FOR DISCHARGE HOME. ALL IV ACCESS DC'd WNL, PT DRESSES SELF W/ASSISTANCE F/SPOUSE. DC AND HOME CARE INSTRUCTIONS PROVIDED AND REVIEWED, PT V/U. PT ESCORTED F/UNIT W/OUT INCIDENT.
== END 2024-07-16 14:01 | disposition home or self-care (01) ==
LOC: ER 13:51 → PCU 13:52 → ERHOLD 13:52 → PCU 07-15 12:37
PROVIDERS: Family Medicine; Physician Assistant; ADMIT Internal Medicine
DX: I24.9 Acute ischemic heart disease, unspecified (principal); I25.10 Atherosclerotic heart disease of native coronary artery without angina pectoris; I25.2 Old myocardial infarction; R79.89 Other specified abnormal findings of blood chemistry; E87.20 Acidosis, unspecified; D64.9 Anemia, unspecified; I10 Essential (primary) hypertension; E78.5 Hyperlipidemia, unspecified; K21.9 Gastro-esophageal reflux disease without esophagitis; E89.0 Postprocedural hypothyroidism; E27.40 Unspecified adrenocortical insufficiency; Z95.5 Presence of coronary angioplasty implant and graft; Z87.891 Personal history of nicotine dependence; Z79.890 Hormone replacement therapy; Z79.52 Long term (current) use of systemic steroids; Z79.02 Long term (current) use of antithrombotics/antiplatelets; Z79.82 Long term (current) use of aspirin; Z79.899 Other long term (current) drug therapy; Z91.041 Radiographic dye allergy status; Z88.8 Allergy status to other drugs, medicaments and biological substances; Z91.09 Other allergy status, other than to drugs and biological substances; Z90.49 Acquired absence of other specified parts of digestive tract; Z90.710 Acquired absence of both cervix and uterus
CPT/HCPCS: 0241U; 36415; 71046; 71260; 76937; 80053; 83735; 83880; 84484; 85025; 85347; 85379; 93005; 93010; 93308; 93321; 93458; 96372-59; 96374-59; 96375; 99152; 99153; 99285-25; A9270; C1769; C1887; C1894; G0378; J1200; J1644; J1650; J1720; J2250; J2470; J2919; J3010; J7030; J7050; Q9957; Q9967

== ENCOUNTER 2024-07-17 14:46 | Inpatient (IN) | payer BC ==
[~2024-07-17] VITALS: Ht 167.6 cm; Wt 71.3 kg
[~2024-07-17 14:46] MED LIST changes: +Cortef20 MG PO; +PLAVIX75 MG PO; +PROBIOTIC ACID1 EAC7 PO; +TELMISARTAN40 MG PO
[2024-07-17 15:22] LABS: Calcium, Ionized (POC) 1.17 mmol/L (1.10-1.46); Chloride (POC) 112 mmol/L (98-108); Creatinine (POC) 1.2 mg/dL (0.6-1.0); Glucose (ISTAT POC) 153 mg/dL (70-99); Hemoglobin (POC) 8.8 g/dL (12.0-16.0); Potassium (POC) 4.5 mmol/L (3.5-5.5); Sodium (POC) 142 mmol/L (135-148); Total CO2 (POC) 14 mmol/L (21-32)
[2024-07-17 15:25] LABS: BASOPHILS ABSOLUTE AUTO 0.16 K/mm3 (0.00-0.23); BASOPHILS PERCENT AUTO 1 % (0-2); EOSINOPHILS ABSOLUTE AUTO 0.36 K/mm3 (0.00-0.68); EOSINOPHILS PERCENT AUTO 3 % (0-6); Hematocrit 26.7 % (33.0-51.0); Hemoglobin 8.2 g/dL (11.5-16.0); IMMATURE GRAN ABSOLUTE AUTO 0.09 K/mm3 (0.00-0.10); IMMATURE GRAN PERCENT AUTO 1 % (0-1); LYMPHOCYTES ABSOLUTE AUTO 4.64 K/mm3 (0.84-5.20); LYMPHOCYTES PERCENT AUTO 37 % (21-46); MONOCYTES ABSOLUTE AUTO 1.05 K/mm3 (0.16-1.47); MONOCYTES PERCENT AUTO 8 % (4-13); Mean Corpuscular HGB 29.6 pg (26.0-34.0); Mean Corpuscular HGB Conc 30.7 g/dL (31.5-36.5); Mean Corpuscular Volume 96 fL (80-100); Mean Platelet Volume 10.2 fL (9.1-12.4); NEUTROPHILS ABSOLUTE AUTO 6.26 K/mm3 (1.96-9.15); NEUTROPHILS PERCENT AUTO 50 % (41-73); Platelet Count 430 K/mm3 (150-400); RDW Coefficient Variation 14.4 % (11.7-14.2); RDW Standard Deviation 50.4 fL (35.1-46.3); Red Blood Cell Count 2.77 M/mm3 (3.80-5.20); White Blood Cell Count 12.56 K/mm3 (4.00-11.30)
[2024-07-17] MEDS ORDERED: DiphenhydrAMINE HCl 50 MG/ML 1ML Vial IV ONE ×2 (15:30→16:00)
[2024-07-17] MEDS ORDERED: MethylPREDNISolone Sod Succ 125 MG Vial IV ONE (15:30)
[2024-07-17 15:47] LABS: Albumin, Blood 3.7 g/dL (3.4-5.0); Albumin/Globulin Ratio 1.3 (0.8-1.8); Bilirubin, Total 0.4 mg/dL (0.1-1.0); Creatinine, Blood 1.05 mg/dL (0.40-1.00); Globulin, Blood 2.9 g/dL (2.2-4.0); Potassium, Blood 4.5 mmol/L (3.5-5.5); Total Protein, Blood 6.6 g/dL (6.4-8.2)
[2024-07-17] MEDS ORDERED: EpiNEPhrine 1 MG/1 ML 1ML Vial ONE (16:02)
[2024-07-17] MEDS ORDERED: Pantoprazole Sodium 40 MG Injection IV ONE (18:35)
[2024-07-17 19:00] VITALS: BP 87/73
[2024-07-17 19:47] LABS: International Normalized Ratio 1.07; Prothrombin Time Results 11.4 Sec (9.7-11.5)
[2024-07-17 20:00] VITALS: BP 112/52
[2024-07-17 20:13] LABS: Hematocrit 23.8 % (33.0-51.0); Hemoglobin 7.4 g/dL (11.5-16.0)
[2024-07-17 21:00] VITALS: BP 101/51
[2024-07-17] MEDS ORDERED: NS 1,000 ML IV ONE (22:34)
[2024-07-17 23:00] VITALS: BP 130/65
[2024-07-17] MEDS ORDERED: NS 1,000 ML IV SCH (23:00)
[2024-07-17] MEDS ORDERED: FLU VACC TS2024-25(6MOS UP)/PF 45 MCG/0.5 ML SYRINGE IM ONE (23:35)
[2024-07-17] MEDS ORDERED: Ondansetron HCl 2 MG / ML 2ML Vial IV PRN (23:35)
[2024-07-17] MEDS ORDERED: Pantoprazole Sodium 40 MG in NS 50 ML IV SCH (23:55)
[2024-07-18] VITALS (17 sets, daily range): BP systolic 98–154; BP diastolic 49–96
[2024-07-18] MEDS ORDERED: Sodium Bicarb 8.4% Inj 100 MEQ in Sodium Chloride 0.45% 1,000 ML IV SCH (04:00)
[2024-07-18] MEDS ORDERED: DiphenhydrAMINE HCL 25 MG Cap PO ONE (05:15)
[2024-07-18 06:53] LABS: BASOPHILS ABSOLUTE AUTO 0.01 K/mm3 (0.00-0.23); BASOPHILS PERCENT AUTO 0 % (0-2); EOSINOPHILS PERCENT AUTO 0 % (0-6); Hematocrit 30.1 % (33.0-51.0); Hemoglobin 9.9 g/dL (11.5-16.0); IMMATURE GRAN ABSOLUTE AUTO 0.05 K/mm3 (0.00-0.10); IMMATURE GRAN PERCENT AUTO 1 % (0-1); LYMPHOCYTES ABSOLUTE AUTO 0.83 K/mm3 (0.84-5.20); LYMPHOCYTES PERCENT AUTO 9 % (21-46); MONOCYTES ABSOLUTE AUTO 0.48 K/mm3 (0.16-1.47); MONOCYTES PERCENT AUTO 5 % (4-13); Mean Corpuscular HGB 30.2 pg (26.0-34.0); Mean Corpuscular HGB Conc 32.9 g/dL (31.5-36.5); Mean Corpuscular Volume 92 fL (80-100); Mean Platelet Volume 10.1 fL (9.1-12.4); NEUTROPHILS ABSOLUTE AUTO 8.23 K/mm3 (1.96-9.15); NEUTROPHILS PERCENT AUTO 86 % (41-73); Platelet Count 257 K/mm3 (150-400); RDW Coefficient Variation 14.1 % (11.7-14.2); RDW Standard Deviation 47.5 fL (35.1-46.3); Red Blood Cell Count 3.28 M/mm3 (3.80-5.20)
[2024-07-18 07:13] LABS: Albumin, Blood 3.4 g/dL (3.4-5.0); Albumin/Globulin Ratio 1.4 (0.8-1.8); Bilirubin, Total 1.2 mg/dL (0.1-1.0); Bun/Creatinine Ratio 24.8 (12.0-20.0); Calcium, Blood 8.3 mg/dL (8.5-10.1); Creatinine, Blood 0.89 mg/dL (0.40-1.00); Globulin, Blood 2.5 g/dL (2.2-4.0); Potassium, Blood 4.2 mmol/L (3.5-5.5); Total Protein, Blood 5.9 g/dL (6.4-8.2)
--- NOTE | 2024-07-18 07:40 | NUR ---
ASSUMPTION OF CARE AND SHIFT SUMMARY- ALL IN ONE PT ARRIVED ON UNIT RM 3 AT 0253. PT WAS AND IS ALERT AND ORIENTED TO ALL ALTHOUGH PT LOSES TRAIN OF THOUGHT DURING CONVERSATION OFTEN. NEUROVASCULARLY INTACT, MAEW. AMBULATED TO ICU BED AND BSC. SINUS RHYTHM AND STABLE BP. 2ND UNIT OF PRBCS INFUSING UPON ARRIVAL AND FINISHED AT 0525. MOST RECENT HEMOGLOBIN 9.9 AT 0630 TODAY. NO SIGNS OF BLEEDING SINCE ADMISSION TO UNIT.SAT >97% ON RA, AND NO EPISODES OF SOB. PT DENIES AB PAIN, N/V THOUGH SAYS ONE OF THE RECENT SYMPTOMS ASSOCIATED WITH RECENT ADMISSION IS BURNING EPIGASTRIC AB PAIN THAT RADIATES TO SHOULDERS L>R THAT ONLY HAPPENS WHEN STANDING. THIS PAIN IS ALSO ASSOC W SOB. NO URINARY SYMPTOMS. BICARB INFUSING AT 75 AND PROTONIX AT 10. PT AHS CALL LIGHT. REPORT GIVEN TO ONCOMING NURSE.
[2024-07-18] MEDS ORDERED: Metoprolol Succinate 50 MG TABCR PO SCH (09:00)
[2024-07-18] MEDS ORDERED: Hydrocortisone 20 MG Tab PO SCH (09:00)
[2024-07-18] MEDS ORDERED: Amantadine HCl 100 MG Cap PO SCH ×2 (09:00→18:00)
[2024-07-18] MEDS ORDERED: Venlafaxine HCl 75 MG CapCR PO SCH (09:00)
[2024-07-18] MEDS ORDERED: buPROPion HCL 150 MG TAB.SR.12H PO SCH (09:00)
--- NOTE | 2024-07-18 12:36 | NUR ---
Pt. is awake in bed when she welcomes my visit. Pt. is pleasant. Spouse is present at bedside. Facilitated a life review and listined with interest and empathy. Pt. verbalized an expectation to possibly be transported to another facility, for a new diagnosis. Seek to normalize the Pt. experience. Pt. diaplays evidence of understanding and agreement. Pt. welcomed prayer. Prayed with pt. and spouse. Both verbalized gratitude for the spiritual care visit.
[2024-07-18 12:39] LABS: Hematocrit 30.3 % (33.0-51.0); Hemoglobin 10.2 g/dL (11.5-16.0)
[2024-07-18 17:49] LABS: Hemoglobin 9.4 g/dL (11.5-16.0)
[2024-07-18] MEDS ORDERED: Clopidogrel Bisulfate 75 MG Tab PO STA (17:58)
[2024-07-18] MEDS ORDERED: Aspirin 81 MG Chew PO STA (17:58)
[2024-07-18 18:14] LABS: Bun/Creatinine Ratio 19.8 (12.0-20.0); Calcium, Blood 8.4 mg/dL (8.5-10.1); Creatinine, Blood 0.86 mg/dL (0.40-1.00); Potassium, Blood 3.3 mmol/L (3.5-5.5)
--- NOTE | 2024-07-18 18:21 | NUR ---
SUMMARY PT A/O X4. FORGETFUL AT TIMES BUT USING CALL LIGHT APPROPRIATELY. STEADY GAIT. OOB TO BATHROOM SEVERAL TIMES. NO SIGNS OF BLEEDING THIS SHIFT. H&H IS HOLDING. PT GOT ASSIGNED A BED AT [facility] THIS EVENING. DR. RODRIGUES IN CONTACT WITH CARDIOLOGY DR. ONEAL ABOUT MEDS FOR PT HAVING A HX OF STENTS. DR. ONEAL OK'D PT TO HAVE PLAVIX AND ASA, BOTH GIVEN. NO ACUTE CHANGES THIS SHIFT.
--- NOTE | 2024-07-18 22:00 | NUR ---
PT HAD NO SIGNIFICANT CHANGES IN CONDITION DURING SHIFT. SHE COMPLAINED OF TRANSIENT NAUSEA AND WAS TREATED FOR SUCH. SINUS RHYTHM ON MONITOR, NORMOTENSIVE, SPO2 >94% ON ROOM AIR. NO BM, NOT EMESIS. NO OBVIOUS EVIDENCE OF FURTHER BLEEDING. SHE TRANSFERRED TO AMBULANCE [facility] FROM BED WITH MINIMAL ASSISTANCE. IV PUMP AND PROTONIX GTT SENT WITH CREW. HANDOFF GIVEN TO AMBULANCE CREW. I CALLED [facility]IV[facility] MALIK AND GAVE REPORT TO SHANIA GALVEZ. PT LEFT BY AMBULANCE APPROXIMATELY 2150.
[2024-07-19] MEDS ORDERED: Levothyroxine Sodium 0.125 MG Tab PO SCH (06:00)
[2024-07-19] MEDS ORDERED: Trospium Chloride 20 MG Tab PO SCH (07:00)
== END 2024-07-18 21:55 | disposition short-term general hospital (02) | DRG 378 ==
LOC: ER 14:46 → ERHOLD 14:47 → ICUE 14:47
PROVIDERS: Family Medicine; Physician Assistant; Student in an Organized Health Care Education/Training Program; ADMIT Internal Medicine
PROC: 30233N1 Transfusion of Nonautologous Red Blood Cells into Peripheral Vein, Percutaneous Approach (ICD-10-PCS; principal; 2024-07-17)
DX: K92.1 Melena (principal); D62 Acute posthemorrhagic anemia; E27.40 Unspecified adrenocortical insufficiency; K21.9 Gastro-esophageal reflux disease without esophagitis; E03.9 Hypothyroidism, unspecified; I25.10 Atherosclerotic heart disease of native coronary artery without angina pectoris; I10 Essential (primary) hypertension; E78.5 Hyperlipidemia, unspecified; Z79.02 Long term (current) use of antithrombotics/antiplatelets; Z95.5 Presence of coronary angioplasty implant and graft; Z98.1 Arthrodesis status; Z79.891 Long term (current) use of opiate analgesic; Z79.899 Other long term (current) drug therapy; Z79.890 Hormone replacement therapy; Z79.52 Long term (current) use of systemic steroids; Z79.82 Long term (current) use of aspirin; Z90.89 Acquired absence of other organs; Z90.710 Acquired absence of both cervix and uterus; Z90.49 Acquired absence of other specified parts of digestive tract; Z87.891 Personal history of nicotine dependence; Z98.890 Other specified postprocedural states; Z28.21 Immunization not carried out because of patient refusal; I25.2 Old myocardial infarction
CPT/HCPCS: 36415; 36430; 71275; 74174; 80047; 80048; 80053; 83880; 84484; 85014; 85018; 85025; 85610; 85730; 86850; 86900; 86901; 86923; 93005; 93010; 96365; 96366; 96374-59; 96375; 96376; 96376-59; 99285-25; A9270; G0378; J0171; J1200; J2405; J2470; J2919; J7030; P9016; Q9967

== ENCOUNTER → 2024-07-29 | Outpatient (CLI) | payer MEDICARE ==
[~2024-07-29] MED LIST changes: -AMAN100; +GLUCOSAMINE HCL PO; +HYDCOR10 PO; +IRON18 M1 PO; +KLOR-CON 1010 ME9 PO; +MAGNESIUM OXID500 MG PO; +PROBIOTIC1 EA15 PO; +TELM40 PO; +VITAMIN D325 MC3 PO
[2024-07-29 19:53] LABS: BASOPHILS ABSOLUTE AUTO 0.05 K/mm3 (0.00-0.23); BASOPHILS PERCENT AUTO 1 % (0-2); EOSINOPHILS ABSOLUTE AUTO 0.07 K/mm3 (0.00-0.68); EOSINOPHILS PERCENT AUTO 1 % (0-6); Hematocrit 26.9 % (33.0-51.0); Hemoglobin 8.4 g/dL (11.5-16.0); IMMATURE GRAN ABSOLUTE AUTO 0.04 K/mm3 (0.00-0.10); IMMATURE GRAN PERCENT AUTO 1 % (0-1); LYMPHOCYTES PERCENT AUTO 14 % (21-46); MONOCYTES ABSOLUTE AUTO 0.64 K/mm3 (0.16-1.47); MONOCYTES PERCENT AUTO 9 % (4-13); Mean Corpuscular HGB 28.7 pg (26.0-34.0); Mean Corpuscular HGB Conc 31.2 g/dL (31.5-36.5); Mean Corpuscular Volume 92 fL (80-100); Mean Platelet Volume 10.5 fL (9.1-12.4); NEUTROPHILS ABSOLUTE AUTO 5.37 K/mm3 (1.96-9.15); NEUTROPHILS PERCENT AUTO 75 % (41-73); Platelet Count 337 K/mm3 (150-400); RDW Coefficient Variation 14.4 % (11.7-14.2); RDW Standard Deviation 48.5 fL (35.1-46.3); Red Blood Cell Count 2.93 M/mm3 (3.80-5.20); White Blood Cell Count 7.17 K/mm3 (4.00-11.30)
[2024-07-29 20:20] LABS: Albumin, Blood 3.1 g/dL (3.4-5.0); Bilirubin, Total 0.3 mg/dL (0.1-1.0); Bun/Creatinine Ratio 9.1 (12.0-20.0); Calcium, Blood 8.7 mg/dL (8.5-10.1); Creatinine, Blood 0.88 mg/dL (0.40-1.00); Globulin, Blood 3.1 g/dL (2.2-4.0); Total Protein, Blood 6.2 g/dL (6.4-8.2)
== END | disposition home or self-care (01) ==
LOC: LAB 18:19 → LAB SHORT 18:19
PROVIDERS: Family Medicine
DX: I10 Essential (primary) hypertension (principal)
CPT/HCPCS: 80053; 85025

== ENCOUNTER 2024-08-05 12:13 | Inpatient (IN) | payer BC ==
[~2024-08-05] VITALS: Ht 167.6 cm; Wt 77.0 kg
[~2024-08-05 12:13] MED LIST changes: -DESV50 PO; -GLUCOSAMINE HCL PO; -HYDCOR10 PO; -IRON18 M1 PO; -KLOR-CON 1010 ME9 PO; -MAGNESIUM OXID500 MG PO; -PROBIOTIC1 EA15 PO; +Pristiq100 MG PO; -TELM40 PO; -VITAMIN D325 MC3 PO
[2024-08-05 12:50] LABS: BASOPHILS ABSOLUTE AUTO 0.07 K/mm3 (0.00-0.23); BASOPHILS PERCENT AUTO 1 % (0-2); EOSINOPHILS ABSOLUTE AUTO 0.12 K/mm3 (0.00-0.68); EOSINOPHILS PERCENT AUTO 2 % (0-6); Hematocrit 23.4 % (33.0-51.0); Hemoglobin 7.5 g/dL (11.5-16.0); IMMATURE GRAN ABSOLUTE AUTO 0.01 K/mm3 (0.00-0.10); IMMATURE GRAN PERCENT AUTO 0 % (0-1); LYMPHOCYTES ABSOLUTE AUTO 1.55 K/mm3 (0.84-5.20); LYMPHOCYTES PERCENT AUTO 24 % (21-46); MONOCYTES ABSOLUTE AUTO 0.46 K/mm3 (0.16-1.47); MONOCYTES PERCENT AUTO 7 % (4-13); Mean Corpuscular HGB Conc 32.1 g/dL (31.5-36.5); Mean Corpuscular Volume 87 fL (80-100); Mean Platelet Volume 9.8 fL (9.1-12.4); NEUTROPHILS ABSOLUTE AUTO 4.31 K/mm3 (1.96-9.15); NEUTROPHILS PERCENT AUTO 66 % (41-73); Platelet Count 490 K/mm3 (150-400); RDW Standard Deviation 48.1 fL (35.1-46.3); Red Blood Cell Count 2.68 M/mm3 (3.80-5.20); White Blood Cell Count 6.52 K/mm3 (4.00-11.30)
[2024-08-05 13:13] LABS: Albumin, Blood 2.8 g/dL (3.4-5.0); Bilirubin, Total 0.4 mg/dL (0.1-1.0); Bun/Creatinine Ratio 18.2 (12.0-20.0); Calcium, Blood 8.4 mg/dL (8.5-10.1); Creatinine, Blood 0.77 mg/dL (0.40-1.00); Globulin, Blood 2.9 g/dL (2.2-4.0); Potassium, Blood 2.8 mmol/L (3.5-5.5); Total Protein, Blood 5.7 g/dL (6.4-8.2)
[2024-08-05] MEDS ORDERED: NS 1,000 ML IV SCH ×3 (13:30→15:30)
[2024-08-05 13:41] LABS: International Normalized Ratio 1.18; Prothrombin Time Results 12.5 Sec (9.7-11.5)
[2024-08-05] MEDS ORDERED: Potassium Chl 20MEQ/Water100ML 100 ML IV SCH (14:00)
[2024-08-05] MEDS ORDERED: Propofol 10mg/ml 20 ml Vial (Procedural) IV ONE (17:40)
[2024-08-05] MEDS ORDERED: Acetaminophen 500 MG Tab PO PRN (18:10)
[2024-08-05] MEDS ORDERED: Ondansetron HCl 2 MG / ML 2ML Vial IV PRN (18:10)
[2024-08-05] MEDS ORDERED: EPINEPhrine HCl 0.1 MG/ML 10ML SYR XX ONE (18:59)
[2024-08-05] MEDS ORDERED: DOPamine 400 MG/Dextrose 250 ML Bag IV ONE (18:59)
[2024-08-05 19:39] LABS: Hematocrit 24.3 % (33.0-51.0); Hemoglobin 7.9 g/dL (11.5-16.0); Mean Corpuscular HGB 28.1 pg (26.0-34.0); Mean Corpuscular HGB Conc 32.5 g/dL (31.5-36.5); Mean Corpuscular Volume 87 fL (80-100); Mean Platelet Volume 9.7 fL (9.1-12.4); Platelet Count 386 K/mm3 (150-400); RDW Coefficient Variation 14.8 % (11.7-14.2); RDW Standard Deviation 47.8 fL (35.1-46.3); Red Blood Cell Count 2.81 M/mm3 (3.80-5.20); White Blood Cell Count 4.99 K/mm3 (4.00-11.30)
[2024-08-05] MEDS ORDERED: MethylPREDNISolone Sod Succ 125 MG Vial IV ONE (19:50)
[2024-08-05] MEDS ORDERED: DiphenhydrAMINE HCl 50 MG/ML 1ML Vial IV ONE ×2 (19:50→21:10)
[2024-08-05] MEDS ORDERED: FLU VACC TS2024-25(6MOS UP)/PF 45 MCG/0.5 ML SYRINGE IM ONE (20:00)
[2024-08-05] MEDS ORDERED: Amantadine HCl 100 MG Cap PO SCH (21:00)
[2024-08-05] MEDS ORDERED: NS 250 ML IV PRN (22:35)
[2024-08-05 22:40] VITALS: BP 112/95
--- NOTE | 2024-08-05 23:00 | NUR ---
ADMISSION REPORT RECEIVED FROM ER NURSE. PATIENT ARRIVES TO PCU 19 AROUND 2229, SLID OVER TO PCU BED WITH ASSISTANCE OF STAFF. ACCOMPANYING PATIENT, ABLE TO GIVE THIS RN PATIENT'S MEDICAL Hx. PATIENT IS ALERT, ORIENTED x2-3. PER REPORT, PATIENT RECIEVED IV BENADRYL PRIOR TO CT D/T CONTRAST ALLERGY IN WHICH PATIENT BECAME CONFUSED. PER , PATIENT IS "DELUSIONAL". BP STABLE. ON TELE, SR. ON RA WITH SPO2 >90%. ATTEMPTED TO PLACE PURWICK FOR PATIENT, PATIENT STATES SHE IS UNABLE TO VOID USING THE PURWICK, BEDPAN USED AND PATIENT ABLE TO URINATE. FLUIDS INFUSING PER EMAR, FINAL BAG OF POTASSIUM ONCE THIS RN RECEIVES. BED ALARM ON FOR SAFETY. HAS CALL LIGHT. WATER PROVIDED.
[2024-08-06] VITALS (7 sets, daily range): BP systolic 121–159; BP diastolic 58–108
--- NOTE | 2024-08-06 00:56 | NUR ---
UPDATE PATIENT CONTINUING TO BE INCREASINGLY CONFUSED. PATIENT OCCASIONALLY PULLING AT LINES AND HAS UNHOOKED LINES FROM IV. PATIENT STATING "I'M NOT DELUSIONAL" BUT REPORTS SEEING LITTLE GIRLS IN THE ROOM. PATIENT REASSURED SHE IS THE ONLY PERSON IN THE ROOM OTHER THAN STAFF WHEN SHE HOLLERS OUT FOR HELP. BED ALARM ON. PATIENT TO BE MOVED TO PCU 09 ONCE ROOM CLEAN FOR CLOSER MONITORING.
[2024-08-06 02:21] LABS: Hematocrit 24.1 % (33.0-51.0); Hemoglobin 7.7 g/dL (11.5-16.0); Mean Corpuscular HGB 27.8 pg (26.0-34.0); Mean Corpuscular Volume 87 fL (80-100); Mean Platelet Volume 9.8 fL (9.1-12.4); Platelet Count 359 K/mm3 (150-400); RDW Standard Deviation 48.2 fL (35.1-46.3); Red Blood Cell Count 2.77 M/mm3 (3.80-5.20); White Blood Cell Count 3.24 K/mm3 (4.00-11.30)
[2024-08-06 02:39] LABS: Albumin, Blood 2.9 g/dL (3.4-5.0); Anion Gap 12 mmol/L (3-11); Blood Urea Nitrogen 12 mg/dL (8-24); Bun/Creatinine Ratio 24.8 (12.0-20.0); CO2, Blood 19 mmol/L (21-32); Calcium, Blood 8.3 mg/dL (8.5-10.1); Chloride, Blood 114 mmol/L (98-108); Creatinine, Blood 0.48 mg/dL (0.40-1.00); Glomerular Filtration Rate 102 (60-); Glucose, Blood 116 mg/dL (70-99); Magnesium, Blood 1.7 mg/dL (1.6-2.4); Phosphorus, Blood 2.5 mg/dL (2.5-4.9); Potassium, Blood 3.8 mmol/L (3.5-5.5); Sodium, Blood 141 mmol/L (136-145)
[2024-08-06] MEDS ORDERED: ALPRAZolam 0.25 MG Tab PO ONE (04:50)
[2024-08-06] MEDS ORDERED: NS 1,000 ML IV SCH (04:50)
--- NOTE | 2024-08-06 05:31 | NUR ---
SHIFT SUMMARY PATIENT ALERT, ORIENTED x2. PATIENT VERY CONFUSED, HALLUCINATING CHILDREN IN THE ROOM AND WILL OCCASIONALLY SPEAK TO PEOPLE THAT ARE NOT IN THE ROOM. PATIENT MOOD IS LABILE, WILL RAISE VOICE AT STAFF AND THEN WILL BE TEARFUL. BP STABLE. TELE READING SR. ON RA WITH SPO2 >90%. NO BOWEL MOVEMENT THIS SHIFT. PATIENT USING BEDPAN TO URINATE, ADEQUATE OUTPUT. NO OTHER CHANGES SINCE PREVIOUS NOTE. WILL REPORT O DAY SHIFT RN.
[2024-08-06] MEDS ORDERED: Levothyroxine Sodium 0.125 MG Tab PO SCH (06:00)
[2024-08-06] MEDS ORDERED: LORazepam 2 MG/ML 1ML Injection IV PRN ×2 (07:55→17:15)
[2024-08-06 08:18] LABS: Hematocrit 24.9 % (33.0-51.0)
[2024-08-06 08:58] LABS: Source, Urine Clean Catch
[2024-08-06] MEDS ORDERED: Metoprolol Succinate 50 MG TABCR PO SCH (09:00)
[2024-08-06] MEDS ORDERED: Amantadine HCl 100 MG Cap PO SCH (09:00)
[2024-08-06] MEDS ORDERED: buPROPion HCL 150 MG TAB.SR.12H PO SCH ×2 (09:00→18:00)
[2024-08-06] MEDS ORDERED: Atorvastatin 40 MG Tab PO SCH (09:00)
[2024-08-06] MEDS ORDERED: Venlafaxine HCl 75 MG CapCR PO SCH (09:00)
[2024-08-06 09:05] LABS: Appearance, Urine Clear (Clear); Bilirubin, Urine Neg (Neg); Blood, Urine 1+ (Neg); Color, Urine Yellow (P-Yellow); Glucose Qualitative, Urine Neg (Neg); Ketones, Urine 2+ (Neg); Leukocyte Esterase, Urine Neg (Neg); Nitrite, Urine Neg (Neg); Protein, Urine Neg (Neg); Specific Gravity, Urine 1.015 (1.003-1.022); Urobilinogen, Urine NORM (Normal)
[2024-08-06 09:12] LABS: Bacteria Many /hpf; Squamous Epithelial Cells Few /hpf (Few)
[2024-08-06] MEDS ORDERED: HYDCOR10 PO (09:30)
--- NOTE | 2024-08-06 09:54 | NUR ---
AM NOTE: UPON SHIFT START 4 STAFF MEMEBERS ASSISTING PATIENT TO BEDSIDE COMMODE. PATIENT VERY ANGRY, EMOTIONAL, HAVING HALLUCINATIONS AND VERY HARD TO REDIRECT. STATING SHE CAN SEE HER GRANDCHILDREN PLAYING ON ROCKS OUTSIDE AND YELLING AT STAFF TO BRING THEM INSIDE. TRYING TO GET UP OUT OF BED NONSTOP. CLINICAL STAFF AT BEDSIDE TO ENSURE PATIENT SAFETY. PATIENT ABLE TO TELL ME HER NAME, , WHERE SHE IS AND WHY SHE IS HERE. KRISTY CALLED TO UPDATE ON PATIENT MENTATION AND WAS ON HIS WAY INTO HOSPITAL. DR. RO CALLED TO UPDATE ON PATIENT MENTATION. ORDER FOR ATIVAN, BUT ATIVAN HELD AT THIS TIME DUE TO CLINICAL JUDGEMENT WITH FAMILY ON WAY WHO MAY BE ABLE TO ASSIST IN CALMING PATIENT. TELE SHOWING SR WITH HR 70-90'S. DENIES CHEST PAIN/PRESSURE/PALPITATIONS. SBP 130'S. IV NS INFUSING PER EMAR. NO EDEMA NOTED. ON ROOM AIR, LUNG SOUNDS CLEAR AND DIM IN BASES. DENIES SOB. DENIES COUGH. EVEN AND UNLABORED RESPIRATIONS. BOWEL TONES PRESENT. PATIENT STATES SHE IS PASSING GAS. DENIES ABDOMINAL PAIN/NAUSEA. CLEAR LIQUID DIET AT THIS TIME, EATING ICE CHIPS. ATTENDS IN PLACE. PATIENT UP TO BSC THIS AM AND HAD MEDIUM SIZED JELLY LIKE RED/MAROON BOWEL MOVEMENT. PATIENT UNABLE TO URINATE AT THAT TIME, BLADDER SCAN COMPLETED SHOWING OVER 800. PATIENT ABLE TO USE BEDPAN SOON AFTER IN BED AND VOIDED 700ML OF VERY FOUL SMELLING SHERIDAN URINE. URINE SAMPLE COLLECTED, ORDER RECIEVED FOR UA FROM MD RO AND SAMPLE SENT TO LAB. PLAN FOR GI CONSULT TODAY. SKIN OVERALL PALE WITH SCATTERED BRUISING. PATIENT NOT SAFE TO GET UP AT THIS TIME, VERY WEAK AND UNSTEADY. IT TOOK FOUR STAFF MEMEBERS THIS AM TO GET TO BSC. PATIENT OVERALL VERY WEAK. TREMORS NOTED IN BILATERAL UPPER EXTREMITIES. PATIENT HAVING A VERY DIFFICULT TIME BRUSHING TEETH AND WASHING FACE DUE TO TREMORS. STAFF TO ASSIST WITH ADL'S AND PO INTAKE. KRISTY AND SISTER ANDRÉS TO BEDSIDE THIS AM AND PATIENT CALMS DOWN WITH THEIR PRESENCE. CHATTING HAPPILY IN ROOM AT THIS TIME WITH FAMILY AND VERY APOLOGETIC TO STAFF. MD RO TO BEDSIDE, AND OTHER FAMILY PRESENT FOR MD VILLAR. KRISTY EXPRESSES PATIENT MENTATION WORSENING AT HOME POST CARDIAC STENT PLACEMENT. HE STATES SHE HAS BEEN CONFUSED AT HOME BUT THIS "AGGRESSION" IS NEW. CALL LIGHT IN REACH. BED ALARM IN PLACE. FAMILY REMAINS AT BEDSIDE.
[2024-08-06] MEDS ORDERED: KLOR-CON 1010 ME9 PO (12:00)
[2024-08-06] MEDS ORDERED: Hydrocortisone 20 MG Tab PO SCH (12:00)
[2024-08-06] MEDS ORDERED: MYRBETRIQ25 MG PO (12:02)
[2024-08-06] MEDS ORDERED: OMEP20ER PO (12:07)
[2024-08-06] MEDS ORDERED: TELM40 PO (12:09)
[2024-08-06] MEDS ORDERED: PROBIOTIC1 EA15 PO (12:10)
[2024-08-06] MEDS ORDERED: VITAMIN D325 MC3 PO (12:11)
[2024-08-06] MEDS ORDERED: GLUCOSAMINE HCL PO (12:11)
[2024-08-06] MEDS ORDERED: FOLIC ACID0.4 MG PO (12:12)
[2024-08-06] MEDS ORDERED: IRON18 M1 PO (12:12)
[2024-08-06] MEDS ORDERED: MAGNESIUM250 MG PO (12:13)
[2024-08-06 14:08] LABS: Hematocrit 22.9 % (33.0-51.0); Hemoglobin 7.3 g/dL (11.5-16.0)
--- NOTE | 2024-08-06 14:26 | NUR ---
H&H RESULTS CALLED INTO DR. RO. NEW ORDERS FOR REPEAT H&H 6 HOURS FROM LAST LAB DRAW. ORDERS IN PLACE. PATIENT'S NEUROLOGIST IS CHERIE AUSTIN FROM [facility].
--- NOTE | 2024-08-06 17:02 | NUR ---
MD RO TO BEDSIDE TO DISCUSS PLAN OF CARE WITH PATIENT, KRISTY, SISTER AND DAUGHTER AT BEDSIDE. THIS RN PRESENT AT BEDSIDE.
[2024-08-06] MEDS ORDERED: Melatonin 3 MG Tab PO PRN (17:15)
[2024-08-06] MEDS ORDERED: Hydrocortisone 10 MG Tab PO SCH (18:00)
--- NOTE | 2024-08-06 18:37 | NUR ---
SHIFT SUMMARY: PATIENT CONTINUES TO HAVE HALLUCINATIONS. ALERT TO SELF, FAMILY, PLACE AND SOME DETAILS SURROUNDING WHY SHE IS HERE. CONTINUES TO SAY SHE WANTS TO GO HOME. AT TIMES TRYING TO GET OUT OF BED AND PULLING AT LINES AND CORDS. FAMILY AT BEDSIDE AND PATIENT CALMER WITH FAMILY PRESENCE. FOLLOWING SIMPLE COMMANDS BUT AT TIMES VERY HARD TO REDIRECT. NO CHANGES TO TELE, SHE CONTINUES TO BE IN SR. ON ROOM AIR. VITAL SIGNS STABLE. PASSING GAS. ONE BOWEL MOVEMENT THIS AM. VOIDING WITH BEDPAN. DR. CLARK BY THIS EVENING. NO PLANS FOR COLONOSCOPY AT THIS TIME. PATIENT OKAY FOR CLEAR LIQUID DIET. PLAN FOR MRI TOMORROW. MRI SCREENING FORM FAXED ALONG WITH STENT CARD. SEE COPY OF STENT CARD IN CHART. PLANS FOR SISTER TO SPEND THE NIGHT WITH PATIENT.
[2024-08-06 20:49] LABS: Hematocrit 21.7 % (33.0-51.0); Hemoglobin 7.1 g/dL (11.5-16.0)
[2024-08-06] MEDS ORDERED: Primidone 50 MG Tab PO SCH (21:00)
--- NOTE | 2024-08-06 23:51 | NUR ---
UPDATE CALL PLACED TO RESIDENT WITH PATIENT CONCERNS. PATIENT CONTINUING TO BE CONFUSED AND IS UNABLE TO BE REDIRECTED. SISTER AT BEDSIDE STATING THAT THE PATIENT OCCASIONALLY HAS "FLARE UPS" D/T MS BUT STATES IT IS MORE FORGETFULLNESS. PATIENT IS HAVING VISUAL AND AUDITORY HALLUCINATIONS ACCOMPANIED WITH CONSTANT SPASTIC MOVEMENTS IN UPPER EXTREMITIES. PATIENT OCCASIONALLY TRYING TO GET OUT OF BED WELL. ALL VITALS REMAIN STABLE. NO NEW ORDERS RECEIVED.
[2024-08-07] VITALS (9 sets, daily range): BP systolic 109–176; BP diastolic 68–102
[2024-08-07 03:51] LABS: Hematocrit 21.7 % (33.0-51.0); Mean Corpuscular HGB 27.8 pg (26.0-34.0); Mean Corpuscular HGB Conc 32.3 g/dL (31.5-36.5); Mean Corpuscular Volume 86 fL (80-100); Mean Platelet Volume 9.5 fL (9.1-12.4); Platelet Count 444 K/mm3 (150-400); RDW Coefficient Variation 15.2 % (11.7-14.2); Red Blood Cell Count 2.52 M/mm3 (3.80-5.20); White Blood Cell Count 8.27 K/mm3 (4.00-11.30)
[2024-08-07 04:10] LABS: Anion Gap 13 mmol/L (3-11); Blood Urea Nitrogen 20 mg/dL (8-24); CO2, Blood 20 mmol/L (21-32); Calcium, Blood 8.8 mg/dL (8.5-10.1); Chloride, Blood 114 mmol/L (98-108); Creatinine, Blood 0.67 mg/dL (0.40-1.00); Glomerular Filtration Rate 94 (60-); Glucose, Blood 132 mg/dL (70-99); Magnesium, Blood 1.9 mg/dL (1.6-2.4); Phosphorus, Blood 2.8 mg/dL (2.5-4.9); Sodium, Blood 143 mmol/L (136-145)
--- NOTE | 2024-08-07 05:26 | NUR ---
SHIFT SUMMARY PATIENT ALERT, ORIENTED TO SELF AND FAMILY AT BEDSIDE. PATIENT VERY CONFUSED OTHERWISE. AGITATES EASILY. VISUAL/AUDITORY HALLUCINATIONS DURING THE SHIFT. SISTER STAYED AT BEDSIDE THIS SHIFT TO ASSIST WITH CARE AND REDIRECTION OF PATIENT. BP STABLE. ON TELE READING SR. REMAINED ON RA, SPO2 >90%. PATIENT USING BEDPAN TO VOID. NO RED/MAROON BMs THIS SHIFT. TOLERING WATER IN HOME WATER BOTTLE WITH INSTRUCTION. NO OTHER CHANGES SINCE PREVIOUS NOTE. WILL REPORT TO DAY SHIFT RN.
--- NOTE | 2024-08-07 10:47 | NUR ---
AM NOTES; AT BEDSIDE AT THIS TIME, DR RO ROUNDED ON PT THIS MORNING, ABLE TO DISCUSSS PLAN TODAY WITH THE . 1UPRBC CURRENTLY INFUSING RECHECK H&H 2 HRS POST INFUSION. MRI TO BE DONE AFTER BLOOD IS COMPLETED. PT IS ALERT RECOGNIZES AT THE BEDSIDE, CAN STATED NAME AND . MUMBLES WITH SPEECH, SOMETIMES HARD TO UNDERSTAND. HALLUCINATES, AND HAVE REALLY BAD OPANIC ATTACKS. PT NEEDING A LOT OF REDIRECTION. PT HASNT VOIDED AT THIS TIME SINCE BEGINNING OF THE SHIFT, BLADDER SCAN SHOWS 422MLS URINE RETAINED TO RECHECK IN BEFORE LUNCH TIME AND PLAN FOR STRAIGHT CATH PER PROTOCOL. VITALS HRR SR 70-80'S, SBP 150'S, SATS ABOVE 95% ON RA, AFEBRILE. PT RESTING IN BED, AT THE BEDSIDE, WILL CONTINUE TO MONITOR
[2024-08-07] MEDS ORDERED: ALPRAZolam 0.25 MG Tab PO PRN (11:50)
[2024-08-07] MEDS ORDERED: CefTRIAXone Sodium 1,000 MG in NS 100 ML IV SCH (11:50)
[2024-08-07] MEDS ORDERED: ChlordiazePOXIDE 25 MG Cap PO ONE (13:15)
[2024-08-07] MEDS ORDERED: Lidocaine 2% Viscous Soln 20 ML,Nystatin 100,000 Unit/ml Susp 20 ML,Mag Hydrox/Al Hydro... MT PRN (13:45)
[2024-08-07 14:22] LABS: Hematocrit 26.2 % (33.0-51.0); Hemoglobin 8.8 g/dL (11.5-16.0)
--- NOTE | 2024-08-07 16:48 | NUR ---
ROUNDED ON PATIENT, SHE WAS UNAVALIABLE AT THIS TIME.
--- NOTE | 2024-08-07 18:11 | NUR ---
PT SUMMARY; PT REMAINS CONFUSED CONTINUES TO HALLUCINATE. PT WAS MEDICATED WITH ATIVAN 1MG PRIOR TO MRI WHICH DIDNT HELP, LIBRIUM PO 25MG WAS GIVEN WELL FINALLY WAS ABLE TO COMPLETE THE PROCEDURE. AWAITING FOR RESULT. PT HAS BEEN REFUSING MEALS FOR TODAY, PT WAS ABLE TO TAKE MEDS WITH WATER NO ISSUES. PT C/O MOUTH SORES MAGIC MOUTHWASH ORDERED GIVEN VIA SWABS IN THE MOUTH. PT WAS STRAIGHT CATH THIS MORNING WITH 500MLS URINE OUT, PT WAS ABLE TO VOID NORMALLY AFTER USES THE BED PAZ BY THE END OF THE SHIFT. 1UPRBC INFUSED HGB WENT UP TO 8.8. NS CONTINUES TO INFUSED AT 100MLS/HR. NO BM FOR THE SHIFT, PT REPORTS PASSING GAS T/O SHIFT. REMAINED AT THE BEDSIDE. CALL LIGHTS IN REACH WILL REPORT TO ONCOMING SHIFT
[2024-08-08 01:13] VITALS: BP 151/93
[2024-08-08 04:08] VITALS: BP 128/97
[2024-08-08 04:42] LABS: Hematocrit 27.3 % (33.0-51.0); Hemoglobin 8.8 g/dL (11.5-16.0); Mean Corpuscular HGB 27.8 pg (26.0-34.0); Mean Corpuscular HGB Conc 32.2 g/dL (31.5-36.5); Mean Corpuscular Volume 86 fL (80-100); Mean Platelet Volume 9.9 fL (9.1-12.4); Platelet Count 408 K/mm3 (150-400); RDW Standard Deviation 47.7 fL (35.1-46.3); Red Blood Cell Count 3.16 M/mm3 (3.80-5.20); White Blood Cell Count 7.31 K/mm3 (4.00-11.30)
[2024-08-08 05:05] LABS: Albumin, Blood 3.1 g/dL (3.4-5.0); Anion Gap 14 mmol/L (3-11); Blood Urea Nitrogen 17 mg/dL (8-24); Bun/Creatinine Ratio 29.1 (12.0-20.0); CO2, Blood 19 mmol/L (21-32); Calcium, Blood 8.5 mg/dL (8.5-10.1); Chloride, Blood 115 mmol/L (98-108); Creatinine, Blood 0.58 mg/dL (0.40-1.00); Glomerular Filtration Rate 97 (60-); Glucose, Blood 121 mg/dL (70-99); Magnesium, Blood 1.9 mg/dL (1.6-2.4); Phosphorus, Blood 2.4 mg/dL (2.5-4.9); Potassium, Blood 3.6 mmol/L (3.5-5.5); Sodium, Blood 144 mmol/L (136-145)
--- NOTE | 2024-08-08 06:03 | NUR ---
SHIFT SUMMARY PATIENT SOMNULENT THIS SHIFT BUT IS ABLE TO WAKE EASILY. CONTINUES TO BE CONFUSED. ORIENTED x1-2. BP STABLE. REMAINS ON RA WITH SPO2 >90%. ON TELE, SR. P[ATIENT USING BEDPAN DURING THE NIGHT, ATTENDS IN PLACE. ADEQUATE OUTPUT. NO BOWEL MOVEMENTS, PATIENT PASSING GAS. AT BEDSIDE DURING THE NIGHT. NO OTHER CHANGES, WILL REPORT TO DAY SHIFT RN.
[2024-08-08 08:15] VITALS: BP 168/93
[2024-08-08 11:03] VITALS: BP 152/80
[2024-08-08] MEDS ORDERED: Piperacillin/Tazobactam Sod 4.5 GM in NS 100 ML IV ONE (11:35)
[2024-08-08] MEDS ORDERED: Piperacillin/Tazobactam Sod 4.5 GM in NS 100 ML IV SCH (16:00)
[2024-08-08 16:30] VITALS: BP 153/100
--- NOTE | 2024-08-08 18:33 | NUR ---
PT SUMMARY; PT HAD SPEECH EVAL DONE TODAY, PT PLACED ON PUREE DIET AND THICKENED LIQUID TOLERATED WELL. REMAINED AT THE BEDSIDE ALL SHIFT ABLE TO TALK TO DR RO ABOUT PLANS. VITALS HRR REMIANED SR 70'S, SBP 140-150'S, SATS ABOVE 95% ON RA, AFEBRILE. PT USES BEDPAN TO URINATE CONTINENT. PT CONTINUES ON IV ABO, NS RUNNING AT 100MLS/HR. PT/OT ATTEMPTED TO WORK WITH PT TODAY UNABLE TO WORK WITH PT TODAY DUE TO SLEEPINESS. NO OTHER ISSUES ENCOUNTERED FOR THE SHIFT WILL REPORT TO ONCOMING SHIFT
[2024-08-08 19:59] VITALS: BP 164/91
[2024-08-09 00:57] VITALS: BP 143/84
[2024-08-09 04:09] VITALS: BP 135/94
[2024-08-09 04:50] LABS: BASOPHILS ABSOLUTE AUTO 0.01 K/mm3 (0.00-0.23); BASOPHILS PERCENT AUTO 0 % (0-2); EOSINOPHILS ABSOLUTE AUTO 0.01 K/mm3 (0.00-0.68); EOSINOPHILS PERCENT AUTO 0 % (0-6); Hematocrit 28.3 % (33.0-51.0); Hemoglobin 9.2 g/dL (11.5-16.0); IMMATURE GRAN ABSOLUTE AUTO 0.03 K/mm3 (0.00-0.10); IMMATURE GRAN PERCENT AUTO 1 % (0-1); LYMPHOCYTES ABSOLUTE AUTO 1.82 K/mm3 (0.84-5.20); LYMPHOCYTES PERCENT AUTO 31 % (21-46); MONOCYTES ABSOLUTE AUTO 0.62 K/mm3 (0.16-1.47); MONOCYTES PERCENT AUTO 10 % (4-13); Mean Corpuscular HGB Conc 32.5 g/dL (31.5-36.5); Mean Corpuscular Volume 86 fL (80-100); Mean Platelet Volume 10.3 fL (9.1-12.4); NEUTROPHILS ABSOLUTE AUTO 3.47 K/mm3 (1.96-9.15); NEUTROPHILS PERCENT AUTO 58 % (41-73); NRBC ABSOLUTE 0.04 K/mm3 (0.00-0.02); NRBC Auto 0.7 /100 WBC (0.0-0.2); Platelet Count 368 K/mm3 (150-400); RDW Coefficient Variation 15.2 % (11.7-14.2); RDW Standard Deviation 47.1 fL (35.1-46.3); Red Blood Cell Count 3.28 M/mm3 (3.80-5.20); White Blood Cell Count 5.96 K/mm3 (4.00-11.30)
--- NOTE | 2024-08-09 06:28 | NUR ---
SHIFT SUMMARY PT HAD AN OVERALL UNEVENTFUL NIGHT. ELEVATED BPs, CURRENTLY SBP 130'S. PT HAVING SOME ANXIETY THIS AM, MEDICATED PER EMAR.
[2024-08-09 08:35] VITALS: BP 130/79
[2024-08-09 11:45] VITALS: BP 99/84
[2024-08-09] MEDS ORDERED: Aspirin 81 MG Chew PO SCH (13:00)
[2024-08-09 16:41] VITALS: BP 95/74
--- NOTE | 2024-08-09 17:28 | NUR ---
SHIFT SUMMARY: PT ALERT, ORIENTED TO SELF AND PLACE. EASILY FORGETFUL. POOR HISTORIAN. NO HALLUCINATIONS NOTED THIS SHIFT. PT IN AND OUT OF SLEEP MAJORITY OF THE DAY. PT WITH BILATERAL TREMORS. BP AND HR STABLE. AFEBRILE. SPO2 >96% ON ROOM AIR. LUNG SOUNDS DIM IN BASES. RESPIRATIONS EVEN AND UNLABORED. ABD MILDLY DISTENDED, DENIES PAIN, BOWEL SOUNDS +. PULSES PALPABLE. PT CONT OF URINE, ABLE TO USE BEDPAN. NS GTT @100ML/HR. PT WITH POOR ORAL INTAKE. AT BEDSIDE THROUGHOUT THE DAY, UPDATED FREQUENTLY ON PT PLAN OF CARE. PT REPOS Q2 TO MAINTAIN TO SKIN INTEGRITY. BED IN LOW, CALL LIGHT IN REACH, WILL REPORT TO ONCOMING RN.
[2024-08-09 19:34] LABS: ANTI-NUCLEAR AB ANA,IGG ELISA None Detected (None Detected)
[2024-08-09 19:39] VITALS: BP 105/91
[2024-08-10] VITALS (7 sets, daily range): BP systolic 111–186; BP diastolic 71–98
--- NOTE | 2024-08-10 04:58 | NUR ---
SHIFT SUMMARY PT ALERT, ORIENTED TO NAME/, PLACE, AND YEAR. PT CONFUSED AT TIMES. NO AUIDTORY OR VISUAL DISTURBANCES NOTED T/O SHIFT. PT REMAINS SLEEPY T/O SHIFT SHIFT. HR IN THE 60'S, SINUS RHYTHM, DENIES PC/PRESSURE, NUMB/TINGLING, SBP STABLE. O2 >92% ON RA, DENIES SOB AT THIS TIME. PT HAS TREMORS OF BILAT HANDS. HX OF MS. PT HAS NOT HAD A BM THIS SHIFT. SHE REPORTS PAIN IN BILAT HIPS, MEDICATED PER EMAR. NO ACUTE CHANGES T/O SHIFT. PTS AT BEDSIDE. WILL MONITOR PT AND REPORT TO DAY SHIFT RN.
--- NOTE | 2024-08-10 16:43 | NUR ---
SHIFT NOTE: PT A/O ABLE TO ANSWER QUESTIONS. SHE HAS BEEN DROWSY AND SLEEPING T/O DAY. SHE HAS NOT HAD ANY HALLUCINATIONS THIS SHIFT. SHE REMAINS IN NSR WITH NO ACUTE EVENTS. SHE IS ON RA WITH SPO2>90%. SHE HAS BEEN REPOSITIONED BY STAFF TO PROMOTE SKIN INTEGRITY. SHE HAS USED THE BEDPAIN FOR VOIDS, NO BM THIS SHIFT. SHE DENIES PAIN. ORAL CARE DONE 3X. NS RUNNING PER EMAR. PT TOLERATING THIN LIQUIDS WITH POOR ORAL INTAKE. IS AT BEDSIDE AND UPDATED ON PLAN OF CARE. CARE CONTINUES.
[2024-08-11] VITALS (8 sets, daily range): BP systolic 115–178; BP diastolic 69–99
--- NOTE | 2024-08-11 05:11 | NUR ---
SHIFT SUMMARY PT REMAINS A&OX4. VSS ON RA. ON TELE PT NSR WITH HR 50s-60s. NO ACUTE EVENTS OVERNIGHT. NO BM TO NOTE. USING BEDPAN NEEDED WITH ADEQUATE OUTPUT HOWEVER ENCOURAGED TO DRINK MORE FLUIDS. PT REPOSITIONED BY STAFF THROUGHOUT NIGHT. ORAL CARE OFFERED HOWEVER PT REFUSED. PT DOES LOOK MORE PUFFY IN EXTREMITIES, FLUIDS PAUSED FOR NOW SINCE PT DRINKING FLUIDS AND UPON HUSBANDS REQUEST. WILL FOLLOW UP IN AM ABOUT THIS. NO FURTHER QUESTIONS OR CONCERNS AT THIS TIME. WILL CONTINUE TO MONITOR UNTIL CHANGE OF SHIFT.
--- NOTE | 2024-08-11 09:50 | NUR ---
THIS RN ASSUMED CARE OF PT AT 0700. PT IS ALERT AND ORIENTED X4 THIS AM, FOLLOWS COMMANDS AND CALLS APPROPRIALTEY, PT WAS VERY TIRED THIS AM. PT HEART RATE IN THE 50s, BLOOD PRESSURE 155/88 MAP OF 108, PT DENIES CHEST PAIN. PT IS ON ROOM AIR SATTING >95%, PT DENIES SHORTNESS OF BREATH SOUNDS CLEAR. NO OTHER INTERVENTIONS AT THIS TIME. PLAN OF CARE CONTINUED.
[2024-08-11] MEDS ORDERED: HydrALAZINE HCl 20 MG / ML 1ML Vial IV PRN (11:30)
[2024-08-11] MEDS ORDERED: Hydrocortisone 10 MG Tab PO ONE (13:00)
[2024-08-11] MEDS ORDERED: Sodium Phosphate Mono/Dibasic 250 MG Tab PO ONE (15:05)
[2024-08-11 16:09] LABS: Hematocrit 30.5 % (33.0-51.0); Hemoglobin 9.8 g/dL (11.5-16.0); Mean Corpuscular HGB 27.7 pg (26.0-34.0); Mean Corpuscular HGB Conc 32.1 g/dL (31.5-36.5); Mean Corpuscular Volume 86 fL (80-100); Mean Platelet Volume 10.6 fL (9.1-12.4); Platelet Count 284 K/mm3 (150-400); RDW Coefficient Variation 15.6 % (11.7-14.2); RDW Standard Deviation 47.8 fL (35.1-46.3); Red Blood Cell Count 3.54 M/mm3 (3.80-5.20)
--- NOTE | 2024-08-11 17:48 | NUR ---
PT SUMMARY PT TRIED TO STAND TODAY, PT WAS NOT SUCCESSFUL. DR. RODRIGUES WANTED TO GET A CORTISOL LEVEL IN THE AM TO SEE IF PT NEEDS HYDROCORTISONE MEDICATION ADJUSTED. PT GOT AN EXTRA DOSE OF HYDROCORTISONE DUE TO NOT RECEIVING IT YESTERDAY 08/10/24. NO OTHER INTERVENTIONS AT THIS TIME. PLAN OF CARE CONTINUED.
--- NOTE | 2024-08-11 21:12 | NUR ---
ASSUMPTION OF CARE: PATIENT ALERT AND ORIENTED X3-4, IMPROVED ABILITY TO MAKE NEEDS KNOWN, WAS AT BEDSIDE. DENIES CHEST PAIN PRESSURE OR SOB. PATIENT ENDORSING ANXIETY, VSS AT THIS TIME. JUST FINISHED INFUSING ABX. ABLE TO TOLERATE ORAL INTAKE OF PILLS WITH APPLESAUCE, 1 AT A TIME, EDUCATED ON SWALLOWING TECHNIQUES, IS CURRENLTY SLEEPING. NO ACUTE CONCERNS FROM OR THIS RN AT THIS TIME. FLUIDS ON TKO ONLY HER HANDS ARE BOTH PUFFY, ENDORSED THIS WELL.
[2024-08-12 03:43] VITALS: BP 134/58
[2024-08-12 04:27] LABS: BASOPHILS ABSOLUTE AUTO 0.01 K/mm3 (0.00-0.23); BASOPHILS PERCENT AUTO 0 % (0-2); EOSINOPHILS ABSOLUTE AUTO 0.03 K/mm3 (0.00-0.68); EOSINOPHILS PERCENT AUTO 1 % (0-6); Hematocrit 30.9 % (33.0-51.0); Hemoglobin 10.2 g/dL (11.5-16.0); IMMATURE GRAN ABSOLUTE AUTO 0.01 K/mm3 (0.00-0.10); IMMATURE GRAN PERCENT AUTO 0 % (0-1); LYMPHOCYTES ABSOLUTE AUTO 0.81 K/mm3 (0.84-5.20); LYMPHOCYTES PERCENT AUTO 20 % (21-46); MONOCYTES ABSOLUTE AUTO 0.75 K/mm3 (0.16-1.47); MONOCYTES PERCENT AUTO 18 % (4-13); Mean Corpuscular HGB 28.6 pg (26.0-34.0); Mean Corpuscular Volume 87 fL (80-100); Mean Platelet Volume 10.2 fL (9.1-12.4); NEUTROPHILS PERCENT AUTO 61 % (41-73); Platelet Count 278 K/mm3 (150-400); RDW Coefficient Variation 15.3 % (11.7-14.2); RDW Standard Deviation 47.9 fL (35.1-46.3); Red Blood Cell Count 3.57 M/mm3 (3.80-5.20); White Blood Cell Count 4.11 K/mm3 (4.00-11.30)
[2024-08-12 05:02] LABS: Albumin, Blood 2.7 g/dL (3.4-5.0); Anion Gap 10 mmol/L (3-11); Blood Urea Nitrogen 8 mg/dL (8-24); CO2, Blood 26 mmol/L (21-32); Calcium, Blood 8.2 mg/dL (8.5-10.1); Chloride, Blood 104 mmol/L (98-108); Glomerular Filtration Rate 101 (60-); Glucose, Blood 107 mg/dL (70-99); Magnesium, Blood 1.7 mg/dL (1.6-2.4); Phosphorus, Blood 1.4 mg/dL (2.5-4.9); Potassium, Blood 2.7 mmol/L (3.5-5.5); Sodium, Blood 137 mmol/L (136-145)
[2024-08-12] MEDS ORDERED: Potassium Phosphate Dibasic 30 MM in Dextrose 5% 500 ML IV STA (06:45)
[2024-08-12] MEDS ORDERED: Potassium Chloride 20 MEQ TabCR PO ONE (07:00)
--- NOTE | 2024-08-12 07:15 | NUR ---
EOS: PATIENT AM ELECTROLYTES VERY ABNORMAL, POWERGLIDE PLACED DUE TO NEED FOR IRRITATING MEDICATIONS AND PROPER IV ACCESS. DENIES CHEST PAIN PRESSURE OR SOB. DOES ENDORSE ANXIETY WILL INFORM DAY RN FOR BID PRN ANXIETY MEDICAITON. PATIENT ABLE TO MAKE NEEDS KNOWN MOST OF THE TIME, SOFT TOUCH CALL LIGHT IN USE, REFUSED PURWICK, DID HAVE A COUPLE INCONTINENT VOIDS. SR TO SB 1' AV BLOCK PRESENT STILL. VSS AFEBRILE. DENIED HEAT DUE TO HEAT WORSEN MS. ACUTE CONCERNS DISCUSSED WITH ONCOMING RN. NOW AT BEDSIDE.
[2024-08-12 07:40] VITALS: BP 130/98
[2024-08-12] MEDS ORDERED: Potassium Chloride 10 Meq Tablet SA PO ONE (08:10)
[2024-08-12] MEDS ORDERED: Metoprolol Succinate 50 MG TABCR PO SCH (09:00)
[2024-08-12] MEDS ORDERED: Clopidogrel Bisulfate 75 MG Tab PO SCH (09:00)
--- NOTE | 2024-08-12 10:53 | NUR ---
THE PT WAS ONLY ABLE TO TAKE 10 MEQ PO KCL OF THE 40 MEQ ORDERED D/T DYSPHAGIA. THIS WAS DISCUSSED WITH DR. RODRIGUES AND THE PRIMARY RN ANATOLIY Lopez. DR. RODRIGUES STATED HE WILL TAKE A LOOK AT THE PT'S MEDICATIONS.
[2024-08-12 11:20] VITALS: BP 137/578
[2024-08-12] MEDS ORDERED: Polyethylene Glycol 3350 17 gm PO SCH (13:00)
[2024-08-12] MEDS ORDERED: Docusate Sodium 100 MG Cap PO SCH (13:00)
[2024-08-12] MEDS ORDERED: Potassium Phosphate Dibasic 15 MM in Dextrose 5% 250 ML IV ONE (13:15)
[2024-08-12 13:21] LABS: Hematocrit 29.7 % (33.0-51.0); Hemoglobin 9.8 g/dL (11.5-16.0); Mean Corpuscular HGB 28.5 pg (26.0-34.0); Mean Corpuscular Volume 86 fL (80-100); Mean Platelet Volume 10.3 fL (9.1-12.4); Platelet Count 295 K/mm3 (150-400); RDW Coefficient Variation 15.1 % (11.7-14.2); RDW Standard Deviation 46.7 fL (35.1-46.3); Red Blood Cell Count 3.44 M/mm3 (3.80-5.20)
[2024-08-12] MEDS ORDERED: Potassium Chloride 40 MEQ in NS 250 ML IV ONE (16:15)
[2024-08-12 16:55] VITALS: BP 109/65
[2024-08-12] MEDS ORDERED: Thiamine HCl 100 MG Tab PO SCH (16:55)
--- NOTE | 2024-08-12 16:56 | NUR ---
SHIFT SUMMARY - A/O TO SELF CONSISTENTLY, INTERMITTENTLY ABLE TO ANSWER YEAR CORRECTLY. REQUIRES REORIENTATION TO SITUATION, EXPERIENCING SOME HALLUCINATIONS AND EXHIBITING INTERMITTENTLY INAPPROPRIATE RESPONSES/INTERACTION. OXYGEN SATURATION >94% ON ROOM AIR. TELE, SINUS RHYTHM 60S, BP WNL. PT EXHIBITING INCREASED DIFFICULTY AND COUGHING WITH ORAL INTAKE, SPEECH THERAPY RE-EVALUATED, REMAINS ON MINCED/MOIST BUT NOW WITH MILDLY THICKENED LIQUIDS. MEDS CRUSHED IN PUDDING/APPLE SAUCE WHEN ABLE. BRIEF CLEAN, DRY, INTACT. PT ABLE TO EXPRESS WHEN SHE NEEDS TO VOID. RELIES HEAVILY ON TO COMMUNICATE NEEDS. FAMILY AT BEDSIDE. MIDLINE TO RUE PLACED 08/12. COG EVAL SCHEDULED FOR TOMORROW. BARIUM SWALLOW STUDY TOMORROW. CARE TEAM IN AGREEMENT THAT SNF IS BEST PLAN OF CARE FOR PT TO IMPROVE STRENGTH SHE IN UNABLE TO MOBILIZE WITHOUT MAXIMUM ASSISTANCE. K-PHOS REPLACEMENT X2. SORES IN MOUTH, DENTAL HYGIENIST CONSULTED. PT REPEATEDLY STATES SHE "NEEDS THAT XANAX". DISCUSSED WITH THE POTENTIAL FOR XANAX TO CONTRIBUTE TO HALLUCINATIONS AND CONFUSION.
[2024-08-12] MEDS ORDERED: Multivitamins-Minerals Liquid 15 ML Oral Syringe PO SCH (17:00)
--- NOTE | 2024-08-12 18:15 | NUR ---
PT TRANSFERRED TO MEDICAL FLOOR VIA BED, BY BILINGUAL INTERPRETER WITH ALL PERSONAL BELONGINGS, ACCOMPANIED BY FAMILY.
--- NOTE | 2024-08-12 18:56 | NUR ---
RN ATTEMPTED A BEDSIDE SWALLOW EVAL WITH DINNER. THE PATIENT WAS UNABLE TO SWALLOW A BITE OF MINCED AND MOIST CHICKEN OR THICKENED WATER. SHE COUGHED FOLLOWING EACH BITE/SIP. ENCOURAGED TO STAY NPO UNTIL BARRIUM SWALLOW TOMORROW. FAMILY AT BEDSIDE.
[2024-08-12 19:30] VITALS: BP 104/67
[2024-08-12 20:26] LABS: Hematocrit 29.7 % (33.0-51.0); Hemoglobin 9.5 g/dL (11.5-16.0); Mean Corpuscular HGB 27.9 pg (26.0-34.0); Mean Corpuscular Volume 87 fL (80-100); Mean Platelet Volume 9.9 fL (9.1-12.4); Platelet Count 299 K/mm3 (150-400); RDW Coefficient Variation 15.4 % (11.7-14.2); RDW Standard Deviation 48.3 fL (35.1-46.3); Red Blood Cell Count 3.41 M/mm3 (3.80-5.20); White Blood Cell Count 4.88 K/mm3 (4.00-11.30)
[2024-08-12] MEDS ORDERED: Primidone 50 MG Tab PO SCH (21:00)
[2024-08-13 00:03] VITALS: BP 140/89
[2024-08-13 03:47] VITALS: BP 162/95
[2024-08-13 05:25] LABS: BASOPHILS ABSOLUTE AUTO 0.01 K/mm3 (0.00-0.23); BASOPHILS PERCENT AUTO 0 % (0-2); EOSINOPHILS ABSOLUTE AUTO 0.09 K/mm3 (0.00-0.68); EOSINOPHILS PERCENT AUTO 1 % (0-6); Hematocrit 30.9 % (33.0-51.0); Hemoglobin 9.8 g/dL (11.5-16.0); IMMATURE GRAN ABSOLUTE AUTO 0.02 K/mm3 (0.00-0.10); IMMATURE GRAN PERCENT AUTO 0 % (0-1); LYMPHOCYTES ABSOLUTE AUTO 2.37 K/mm3 (0.84-5.20); LYMPHOCYTES PERCENT AUTO 37 % (21-46); MONOCYTES ABSOLUTE AUTO 1.07 K/mm3 (0.16-1.47); MONOCYTES PERCENT AUTO 17 % (4-13); Mean Corpuscular HGB 28.1 pg (26.0-34.0); Mean Corpuscular HGB Conc 31.7 g/dL (31.5-36.5); Mean Corpuscular Volume 89 fL (80-100); Mean Platelet Volume 10.7 fL (9.1-12.4); NEUTROPHILS ABSOLUTE AUTO 2.87 K/mm3 (1.96-9.15); NEUTROPHILS PERCENT AUTO 45 % (41-73); NRBC ABSOLUTE 0.02 K/mm3 (0.00-0.02); NRBC Auto 0.3 /100 WBC (0.0-0.2); Platelet Count 342 K/mm3 (150-400); RDW Coefficient Variation 15.5 % (11.7-14.2); RDW Standard Deviation 49.4 fL (35.1-46.3); Red Blood Cell Count 3.49 M/mm3 (3.80-5.20); White Blood Cell Count 6.43 K/mm3 (4.00-11.30)
[2024-08-13 05:50] LABS: Albumin, Blood 2.7 g/dL (3.4-5.0); Anion Gap 15 mmol/L (3-11); Blood Urea Nitrogen 9 mg/dL (8-24); Bun/Creatinine Ratio 16.1 (12.0-20.0); CO2, Blood 21 mmol/L (21-32); Calcium, Blood 8.6 mg/dL (8.5-10.1); Chloride, Blood 105 mmol/L (98-108); Creatinine, Blood 0.56 mg/dL (0.40-1.00); Glomerular Filtration Rate 98 (60-); Glucose, Blood 101 mg/dL (70-99); Magnesium, Blood 1.8 mg/dL (1.6-2.4); Phosphorus, Blood 1.9 mg/dL (2.5-4.9); Potassium, Blood 3.5 mmol/L (3.5-5.5); Sodium, Blood 137 mmol/L (136-145)
[2024-08-13 07:45] VITALS: BP 144/125
[2024-08-13] MEDS ORDERED: Potassium Phosphate Dibasic 30 MM in Dextrose 5% 500 ML IV STA (08:25)
[2024-08-13] MEDS ORDERED: levETIRAcetam 1,000 MG in NS 100 ML IV SCH (11:40)
[2024-08-13 11:57] LABS: Hemoglobin 9.3 g/dL (11.5-16.0)
[2024-08-13 12:25] VITALS: BP 175/145
[2024-08-13 14:31] LABS: International Normalized Ratio 1.44
[2024-08-13] MEDS ORDERED: Dexamethasone Sod Phos 10 MG/ML 1ML VIAL IV SCH (15:00)
[2024-08-13] MEDS ORDERED: Lactated Ringer's 1,000 ML IV SCH ×2 (15:10→15:55)
[2024-08-13] MEDS ORDERED: Vancomycin HCL 1,750 MG in NS 500 ML IV ONE (15:30)
[2024-08-13 15:39] LABS: Thyroid Stimulating Hormone 1.07 uIU/mL (0.360-4.800)
[2024-08-13] MEDS ORDERED: Cefepime HCl 2,000 MG in NS 100 ML IV SCH (16:00)
[2024-08-13] MEDS ORDERED: Ampicillin Sod 2,000 MG in NS 100 ML IV SCH (16:00)
[2024-08-13 16:32] VITALS: BP 137/119
--- NOTE | 2024-08-13 17:29 | NUR ---
PT HAS BEEN A&oX4, vss AND ON ra. pT HAD NO C/O PAIN, SOB. PT HAD NAUSEA AROUND 0900, THIS NURSE GAVE PRN ZOFRAN WITH FULL EFFECT, LOGAN SAW PT FOR SWALLOW EVAL, SEE NOTES FOR INFORMATION. CRITICAL LAB CAME IN AND THIS NURSE NOTIFIED MD RODRIGUES, SEE CHART FOR DETAILS. PT IS BEING TREATED FOR MENINGITIS RULE OUT SO PT WILL BE TRANSFERED TO DIFFERENT ROOM, THIS NURSE GAVE REPORT TO TAMI.
--- NOTE | 2024-08-13 18:00 | NUR ---
PT TRANFERED FROM ROOM 354 TO 332 FOR AIRBORNE PRECAUTIONS. ANTIBIOTICS STARTED. PT'S DAUGHTER AT BEDSIDE.
[2024-08-13 20:20] VITALS: BP 150/82
[2024-08-13] MEDS ORDERED: Hydrocortisone Sod Succinate 100 MG Vial IV SCH (21:00)
[2024-08-14 02:38] VITALS: BP 157/102
[2024-08-14] MEDS ORDERED: Vancomycin HCL 1,250 MG in NS 250 ML IV SCH (04:00)
--- NOTE | 2024-08-14 05:11 | NUR ---
SHIFT SUMMARY 69 YR F ADMITTED ON 08/05/24. FULL CODE. NO ACUTE CHANGES THIS SHIFT. PT HAS HAD NO C/O N/V THIS SHIFT. TREMORS AT BASELINE AND ARE FREQUENT. LR INFUSING @ 200 WELL FREQUENT ABX. PT HAS A PUREWIK THAT IS WORKING WELL FOR HER. CRITICAL LACTIC ACID OF 4.6 @ 2145. HOSPITALIST NOTIFIED. NO BM THIS SHIFT. PT SISTER STAYED THE NIGHT IN THE ROOM WITH HER, THIS SEEMS TO BRING COMFORT TO PT. WILL CONTINUE TO MONITOR. BED IN LOW POSITION AND CALL LIGHT IN REACH.
[2024-08-14 06:19] LABS: BASOPHILS ABSOLUTE AUTO 0.01 K/mm3 (0.00-0.23); BASOPHILS PERCENT AUTO 0 % (0-2); EOSINOPHILS PERCENT AUTO 0 % (0-6); Hematocrit 28.7 % (33.0-51.0); Hemoglobin 8.8 g/dL (11.5-16.0); IMMATURE GRAN ABSOLUTE AUTO 0.02 K/mm3 (0.00-0.10); IMMATURE GRAN PERCENT AUTO 0 % (0-1); LYMPHOCYTES ABSOLUTE AUTO 0.78 K/mm3 (0.84-5.20); LYMPHOCYTES PERCENT AUTO 17 % (21-46); MONOCYTES ABSOLUTE AUTO 0.49 K/mm3 (0.16-1.47); MONOCYTES PERCENT AUTO 11 % (4-13); Mean Corpuscular HGB 27.2 pg (26.0-34.0); Mean Corpuscular HGB Conc 30.7 g/dL (31.5-36.5); Mean Corpuscular Volume 89 fL (80-100); NEUTROPHILS ABSOLUTE AUTO 3.38 K/mm3 (1.96-9.15); NEUTROPHILS PERCENT AUTO 72 % (41-73); NRBC ABSOLUTE 0.02 K/mm3 (0.00-0.02); NRBC Auto 0.4 /100 WBC (0.0-0.2); Platelet Count 274 K/mm3 (150-400); RDW Coefficient Variation 15.5 % (11.7-14.2); RDW Standard Deviation 49.4 fL (35.1-46.3); Red Blood Cell Count 3.23 M/mm3 (3.80-5.20); White Blood Cell Count 4.68 K/mm3 (4.00-11.30)
[2024-08-14 06:57] LABS: Albumin, Blood 2.4 g/dL (3.4-5.0); Anion Gap 18 mmol/L (3-11); Blood Urea Nitrogen 14 mg/dL (8-24); Bun/Creatinine Ratio 22.7 (12.0-20.0); CO2, Blood 17 mmol/L (21-32); Calcium, Blood 8.2 mg/dL (8.5-10.1); Chloride, Blood 109 mmol/L (98-108); Creatinine, Blood 0.62 mg/dL (0.40-1.00); Glomerular Filtration Rate 96 (60-); Glucose, Blood 85 mg/dL (70-99); Magnesium, Blood 1.7 mg/dL (1.6-2.4); Phosphorus, Blood 3.8 mg/dL (2.5-4.9); Potassium, Blood 5.2 mmol/L (3.5-5.5); Sodium, Blood 139 mmol/L (136-145)
[2024-08-14 07:42] VITALS: BP 172/84
[2024-08-14] MEDS ORDERED: Aspirin 300 MG Supp PR SCH (09:00)
[2024-08-14] MEDS ORDERED: Thiamine HCl 100 MG in NS 50 ML IV SCH (09:00)
[2024-08-14 11:45] VITALS: BP 173/87
[2024-08-14] MEDS ORDERED: HYDROmorphone HCl/Pf 1MG SYR IV PRN (12:35)
--- NOTE | 2024-08-14 14:04 | NUR ---
PATIENT TRANSFERED TO PCU 11, REPORT TO MIKE DHILLON RN, LACTIC ACID INCREASED TO 8.7, PATIENT REPORTED INCREASING PAIN, AT BESIDE, PATIENT REFUSED OT, PATIETN STRUGGLING TO ORGANIZE WORDS, REPOSTIONED, CALL LIGHT WITH IN REACH, HTN
[2024-08-14] MEDS ORDERED: NS 1,000 ML IV SCH (14:30)
[2024-08-14 16:00] VITALS: BP 152/88
[2024-08-14 17:24] LABS: Base Excess Venous -4.4 mmol/L; Bicarbonate Venous 21.2 mmol/L (24.0-30.0); PCO2 Venous 33.7 mmHg (38-42); pH Blood Venous 7.39 (7.34-7.37)
--- NOTE | 2024-08-14 18:59 | NUR ---
UPDATED IV PUMP: SPOKE WITH DR. RODRIGUES IN [facility] TO TOTAL IN IV PUMPS OF 10L. PATIETN REQUIRING 3L OF O2, WAS ON RA. HANDS BECOMING VERY EDMEMATOUS. VERBAL TO STOPS FLUIDS, SEND THE LACTIC AND HE WILL REEVALUATE NEED FOR DIURETICS ONCE LACTIC IS BACK EDUCATED , PLAN OF CARE CONTINUES.
--- NOTE | 2024-08-14 19:19 | NUR ---
EOS: PATIENT ARRIVED TO FLOOR ALERT TO SELF WITH DIFFICULTY SPEAKING. SHE HAS A HISTORY OF MS AND ALL HER MUSCLES ARE STIFF WITH CONSTANT SPASMS. HER BLOOD PRESSURE IS ELEVATED. SHE HAS IS LAYING IN BED WITH OXYGEN SATS IN THE LOW 90'S ON 3L NASAL CANNULA. BOTH ARMS HAVE SOME EDEMA AND LUNG SOUNDS ARE CLEAR. SHE HAS HER FAMILY AT BEDSIDE. SHE RECIEVED IV FLUIDS, ANTIBIOTICS DUE TO ELEVATED LACTIC ACID. SHE IS INCONTINENT OF URINE AND ON THE PUREWICK SYSTEM. A BLADDER SCAN WAS DONE AND SHOWED 183CC.
[2024-08-14 20:07] VITALS: BP 127/109
[2024-08-15] VITALS (7 sets, daily range): BP systolic 119–186; BP diastolic 86–115
[2024-08-15 03:42] LABS: BASOPHILS ABSOLUTE AUTO 0.01 K/mm3 (0.00-0.23); BASOPHILS PERCENT AUTO 0 % (0-2); EOSINOPHILS PERCENT AUTO 0 % (0-6); Hematocrit 28.7 % (33.0-51.0); IMMATURE GRAN ABSOLUTE AUTO 0.06 K/mm3 (0.00-0.10); IMMATURE GRAN PERCENT AUTO 1 % (0-1); LYMPHOCYTES ABSOLUTE AUTO 0.43 K/mm3 (0.84-5.20); LYMPHOCYTES PERCENT AUTO 5 % (21-46); MONOCYTES ABSOLUTE AUTO 0.57 K/mm3 (0.16-1.47); MONOCYTES PERCENT AUTO 7 % (4-13); Mean Corpuscular HGB 27.3 pg (26.0-34.0); Mean Corpuscular HGB Conc 31.4 g/dL (31.5-36.5); Mean Corpuscular Volume 87 fL (80-100); NEUTROPHILS ABSOLUTE AUTO 7.67 K/mm3 (1.96-9.15); NEUTROPHILS PERCENT AUTO 88 % (41-73); NRBC ABSOLUTE 0.03 K/mm3 (0.00-0.02); NRBC Auto 0.3 /100 WBC (0.0-0.2); Platelet Count 249 K/mm3 (150-400); RDW Coefficient Variation 15.5 % (11.7-14.2); RDW Standard Deviation 49.2 fL (35.1-46.3); White Blood Cell Count 8.74 K/mm3 (4.00-11.30)
[2024-08-15 04:16] LABS: Vancomycin, Trough 22.7 ug/mL (5.0-10.0)
[2024-08-15 04:19] LABS: Albumin, Blood 2.4 g/dL (3.4-5.0); Anion Gap 10 mmol/L (3-11); Blood Urea Nitrogen 23 mg/dL (8-24); Bun/Creatinine Ratio 34.8 (12.0-20.0); CO2, Blood 23 mmol/L (21-32); Calcium, Blood 8.3 mg/dL (8.5-10.1); Chloride, Blood 113 mmol/L (98-108); Creatinine, Blood 0.66 mg/dL (0.40-1.00); Glomerular Filtration Rate 94 (60-); Glucose, Blood 152 mg/dL (70-99); Magnesium, Blood 1.8 mg/dL (1.6-2.4); Phosphorus, Blood 2.2 mg/dL (2.5-4.9); Potassium, Blood 4.1 mmol/L (3.5-5.5); Sodium, Blood 142 mmol/L (136-145)
--- NOTE | 2024-08-15 06:43 | NUR ---
PT STABLE THROUGHOUT THE SHIFT. PT REMAINS AOX1-2, OCCASSIONALY ABLE TO ANSWER QUESTIONS. PT REMAINS ON 2-4L O2. PUREWICK IN PLACE, PT DID HAVE GOOD URINARY OUTPUT BUT DOES APPEAR TO HAVE INCREASED TREMORS/SHAKING JUST PRIOR AND DURING URINATION EPISODES. URINE IS APPEARS CONCENTRATED AND IS SHERIDAN IN COLOR. PT TOLERATING IV ABX/ANTIVIRALS WELL. PT WAS MEDICATED FOR PAIN X2 WITH MODERATE RELIEF. PT UNABLE TO INDICATE WHERE PAIN IS. FAMILY AT BEDSIDE THROUGHOUT THE SHIFT. FAMILY OFFERED MASKS AND WERE EDUCATED ON WHY PT WAS IN ISOLATION, FAMILY DECLINED USE OF MASKS. VITAL SIGNS REMAIN STABLE. PT CONTINUES TO BE NPO.
[2024-08-15] MEDS ORDERED: Sodium Phosphate 15 MM in Dextrose 5% 500 ML IV STA (07:26)
[2024-08-15] MEDS ORDERED: LORazepam 2 MG/ML 1ML Injection IV ONE (10:05)
--- NOTE | 2024-08-15 10:10 | NUR ---
NG TUBE ATTEMPT Pt positioned to the best of our ability. Pt not following directions and unable to tuck chin down. Attempted NG placement. Pt unable to swallow when asked and started to cough/gasp, turn dusky color and desaturated to 60's when advancement of NG attempted. Promptly removed NG. Pt recovered and attempted one more time with same result. Physician notified that NG tube placement was unsuccessful.
--- NOTE | 2024-08-15 10:52 | NUR ---
"Spiritual Care Visit | Palliative Nurse request Meet Palliative Nurse and Pts. spouse outside hte room before visiting the Pt. The pt. displayed evidence of recognizing her spouse and was calmed by his gentle presence. Pt. was not verbal. This pin ticket machine operator pryae softly for the Pt. and spouse. Spouse acknowledged appreciation for the spiritual care visit and welcomed this pin ticket machine operator to return."
[2024-08-15] MEDS ORDERED: Vancomycin HCL 1,000 MG in NS 250 ML IV ONE (11:00)
[2024-08-15] MEDS ORDERED: TPN Consult Notification XX ONE (13:05)
[2024-08-15] MEDS ORDERED: FURO80 PO (14:17)
--- NOTE | 2024-08-15 16:39 | NUR ---
HAD A VISIT WITH PT'S KRISTY TODAY WHILE PT SLEPT. HE WAS TEARFUL, STATED HE DOESN'T THINK HIS IS GOING TO MAKE IT OUT OF THE HOSPITAL. HE STATES IT'S BECOMING "ALMOST CRUEL" AND STATES HE WANTS TO TALK MORE TO HER SISTERS. 2 OF PT'S 3 SISTERS ARE NURSES. I INTRODUCED KRISTY TO COVER STRIPPERTITA GUPTA, LEFT THEM TOGETHER. RN UNABLE TO PLACE NG TUBE TODAY R/T SBO. NOTIFIED DR. RODRIGUES OF CONVERSATION WITH PT'S . PLAN TO REVISIT AGAIN TOMORROW.
[2024-08-15] MEDS ORDERED: Parenteral Electolytes 40 ML,POTASSIUM PHOS,M-BASIC-D-BASIC 30 MMOL,Multivitamins 10 ML... IV SCH (17:00)
--- NOTE | 2024-08-15 18:28 | NUR ---
End of Shift Pt alert at times, nonverbal but moaning when awake. Pt w/ significant tremors & entire body tensing & shaking frequently t/o shift. Pt at bedside t/o shift, sometimes able to calm & relax pt by placing his forehead to pt's forehead or cheek. Pt body w/ almost immediate relief but then resumes tremulous state. Pt VSS. BP elevated this afternoon, medicated per eMAR x1 this shift w/ improvement. Monitor showing junctional rhythm, HR 80s-90s. Spo2 > 92% on 4-6L oxymask (transitioned from NC d/t pt mouth breathing majority of shift). Pt w/ irregular breathing pattern, sometimes briefly holding breath when full body tensing. Pt medicated w/ PRN IV dilaudid x2 & IV ativan x1 this shift w/ some improvement. Pt unable to answer questions or communicate needs. Pt unable to follow any instructions. Pt eyes often rolling into back of head. Unclear how much pt understands when communicating w/ pt. Oral care difficult to complete d/t pt tightly clamping teeth together before oral care sponge entering pt mouth & again once swab in pt's mouth. Pt not following instructions despite coaxing, thus making care challenging to complete. NGT insertion attempted x2 this shift w/ out success. MD Romero aware. Pt strict NPO status. PPN initiated this evening per MD & sandwich maker order. Purewick in place, initially draining rodney urine. Urine hvac refrigeration technician yellow end of shift. Q2h repositioning w/ BUE & BLE elevated w/ pillows d/t swelling. Pt remains at bedside.
[2024-08-16] VITALS (7 sets, daily range): BP systolic 138–177; BP diastolic 73–112
[2024-08-16 04:28] LABS: Hematocrit 31.4 % (33.0-51.0); Hemoglobin 9.5 g/dL (11.5-16.0); Mean Corpuscular HGB 27.4 pg (26.0-34.0); Mean Corpuscular HGB Conc 30.3 g/dL (31.5-36.5); Mean Corpuscular Volume 91 fL (80-100); Mean Platelet Volume 11.2 fL (9.1-12.4); NRBC ABSOLUTE 0.17 K/mm3 (0.00-0.02); Platelet Count 253 K/mm3 (150-400); RDW Coefficient Variation 15.8 % (11.7-14.2); RDW Standard Deviation 51.2 fL (35.1-46.3); Red Blood Cell Count 3.47 M/mm3 (3.80-5.20); White Blood Cell Count 17.71 K/mm3 (4.00-11.30)
[2024-08-16 04:52] LABS: Alanine Aminotransfer (ALT/SGP 886 U/L (12-78); Albumin, Blood 2.3 g/dL (3.4-5.0); Albumin/Globulin Ratio 0.8 (0.8-1.8); Alk Phos 378 U/L (50-136); Anion Gap 10 mmol/L (3-11); Aspartate Aminotrans (AST/SGOT 741 U/L (12-37); Blood Urea Nitrogen 25 mg/dL (8-24); Bun/Creatinine Ratio 43.2 (12.0-20.0); CO2, Blood 26 mmol/L (21-32); Calcium, Blood 8.3 mg/dL (8.5-10.1); Chloride, Blood 115 mmol/L (98-108); Creatinine, Blood 0.58 mg/dL (0.40-1.00); Globulin, Blood 2.8 g/dL (2.2-4.0); Glomerular Filtration Rate 97 (60-); Glucose, Blood 196 mg/dL (70-99); Magnesium, Blood 2.2 mg/dL (1.6-2.4); Phosphorus, Blood 1.8 mg/dL (2.5-4.9); Sodium, Blood 147 mmol/L (136-145); Total Protein, Blood 5.1 g/dL (6.4-8.2); Triglycerides 147 mg/dL (30-160)
[2024-08-16 05:21] LABS: BAND PERCENT MAN 7 % (0-8); BASOPHILS PERCENT MAN 0 % (0-2); EOSINOPHILS PERCENT MAN 0 % (0-6); LYMPHOCYTES ABSOLUTE MAN 0.17 K/mm3 (0.84-5.20); LYMPHOCYTES PERCENT MAN 1 % (21-46); MONOCYTES PERCENT MAN 4 % (4-13); NEUTROPHILS ABSOLUTE MAN 16.82 K/mm3 (1.96-9.15); SEG NEUTROPHILS PERCENT MAN 88 % (41-73); TOTAL CELLS COUNTED 100
--- NOTE | 2024-08-16 06:01 | NUR ---
SHIFT SUMMARY PT OPENS EYES TO SOUND, SHE IS UNABLE TO ANSWER ORIENTATION QUESTIONS. SHE IS UNABLE TO VERBALIZE PAIN, PT MUMMBLES/MOANS/GRIMACES. FLACC SCALE USED TO SCORE PAIN, RANGING FROM 6-8, MEDICATING PER EMAR. PT RESTLESS AND ANXIOUS. SHE IS RIGID AND HAS SEVERE TREMORS. HR IN THE 90'S, JUNCTIONAL RHYTHM, SBP ELEVATED, PRN MEDICATION. PT MEDICATED X1 DOSE FOR SBP 0F 177. PT ON OXYMASK 4-6L. PT DESATS WITH ACTIVITY AND REPOSITIONING. PT DESATED TO 80% WITH REPOSITIONING O2 INCREASED TO 9L BUT WAS ABLE TO TITRATE BACK TO 5L AFTER RESTING AND DEEP BREATHING. PT WITH PUREWICK IN PLACE, DARK YELLOW URINE. WHILE URINATING PT TENSES UP AND GETS TREMORS OF THE ENTIRE BODY THAT RESOLVES AFTER URNIATION IS COMPLETE. PT WITH DEEP EDEMA OF BILT HANDS, MODERATE EDEMA OF BLE AND BUE. PT AT BEDSIDE. WILL MONITOR PT AND REPORT TO ONCOMING NURSE.
[2024-08-16 06:33] LABS: Base Excess Venous 3.7 mmol/L; Bicarbonate Venous 27.4 mmol/L (24.0-30.0); PCO2 Venous 42.4 mmHg (38-42); pH Blood Venous 7.43 (7.34-7.37)
[2024-08-16] MEDS ORDERED: Furosemide 10 MG / ML 2ML Vial IV ONE (08:40)
[2024-08-16] MEDS ORDERED: Potassium Phosphate Dibasic 15 MM in Dextrose 5% 250 ML IV STA (09:48)
[2024-08-16 11:41] LABS: CORTISOL, FREE BY ED/LC-MS/MS 1.78 ug/dL
[2024-08-16] MEDS ORDERED: Cefepime HCl 2,000 MG in NS 100 ML IV SCH (12:00)
--- NOTE | 2024-08-16 13:06 | NUR ---
UPDATE PT CONTINUES TO BE NONVERBAL, ONLY MOANING IN RM. PT UNABLE TO FOLLOW ANY INSTRUCTIONS. VSS. SPO2 > 92% ON 4-6L OXYMASK. MONITOR SHOWING JUNCTIONAL RHYTHM, HR 90s. PT INCONTINENT W/ PURWICK IN PLACE, FREQUENTLY DRAINING YELLOW URINE. PT W/ SEVERE FULL BODY TENSING & SHAKING W/ EVERY VOID THAT WOULD STOP ONCE PT VOID COMPLETE. PT FAMILY INQUIRING IF A DWYER CATHETER WOULD PROVIDE PT MORE COMFORT D/T APPEARANCE OF PAIN WHILE VOIDING. PT NOTED W/ FULL BODY TREMORS & TENSING W/ EVERY VOID. THIS DISCUSSED W/ MD AT BEDSIDE & MD W/ ORDER FOR DWYER INSERTION IN HOPES OF OFFERING PT RELIEF. AFTER DWYER INSERTION, PT RESTING W/ BODY LESS TENSE. PT SPOUSE REPORTING SIGNIFICANT IMPROVEMENT. PT ONLY NOTED W/ MINIMAL BODY TREMORS & TREMORS RECURRING LESS FREQUENTLY. PT CONTINUES TO BE STRICT NPO. PPN INFUSING PER ORDERS.
[2024-08-16] MEDS ORDERED: TPN Consult Notification XX ONE (13:35)
[2024-08-16] MEDS ORDERED: Parenteral Electolytes 40 ML,Potassium Phosphate Dibasic 30 MM,Multivitamins 10 ML,ZINC... IV SCH (17:00)
--- NOTE | 2024-08-16 18:42 | NUR ---
End of Shift Pt family reporting pt resting more comfortably. Pt noted to be sleeping in rm w/ less frequent & less intense body tremors & tensing. Pt still difficult to arouse & does not answer questions or follow instructions when woken. Pt VSS. PPN infusing per orders. Portillo cath patent & draining clear yellow urine. Q2H max repositioning provided.
[2024-08-16] MEDS ORDERED: Vancomycin HCL 1,000 MG in NS 250 ML IV SCH (20:00)
[2024-08-16] MEDS ORDERED: Sodium Phosphate 20 MM in Dextrose 5% 500 ML IV STA (21:45)
[2024-08-16 22:16] LABS: Albumin, Blood 2.2 g/dL (3.4-5.0); Anion Gap 8 mmol/L (3-11); Blood Urea Nitrogen 24 mg/dL (8-24); Bun/Creatinine Ratio 44.4 (12.0-20.0); CO2, Blood 30 mmol/L (21-32); Calcium, Blood 8.3 mg/dL (8.5-10.1); Chloride, Blood 112 mmol/L (98-108); Creatinine, Blood 0.54 mg/dL (0.40-1.00); Glomerular Filtration Rate 99 (60-); Glucose, Blood 211 mg/dL (70-99); Phosphorus, Blood 1.8 mg/dL (2.5-4.9); Sodium, Blood 146 mmol/L (136-145)
[2024-08-17] VITALS (35 sets, daily range): BP systolic 96–176; BP diastolic 56–111
[2024-08-17 05:23] LABS: Hematocrit 30.6 % (33.0-51.0); Hemoglobin 9.5 g/dL (11.5-16.0); Mean Corpuscular HGB 27.6 pg (26.0-34.0); Mean Corpuscular Volume 89 fL (80-100); Mean Platelet Volume 11.9 fL (9.1-12.4); NRBC ABSOLUTE 0.33 K/mm3 (0.00-0.02); NRBC Auto 1.7 /100 WBC (0.0-0.2); Platelet Count 188 K/mm3 (150-400); RDW Standard Deviation 51.5 fL (35.1-46.3); Red Blood Cell Count 3.44 M/mm3 (3.80-5.20); White Blood Cell Count 19.48 K/mm3 (4.00-11.30)
[2024-08-17 05:36] LABS: Bun/Creatinine Ratio 44.8 (12.0-20.0); Calcium, Blood 8.3 mg/dL (8.5-10.1); Creatinine, Blood 0.51 mg/dL (0.40-1.00); Magnesium, Blood 2.1 mg/dL (1.6-2.4); Phosphorus, Blood 2.7 mg/dL (2.5-4.9)
--- NOTE | 2024-08-17 06:18 | NUR ---
SHIFT SUMMARY PT NOT FOLLOWING COMMANDS, UNABLE TO SPEAK TO MEDICAL STAFF OR FAMILY/OCCASIONALLY MOANING AND GROANING, HAVE NOT OBSERVED THE PT MAKE ANY MEANINGFUL COMMUNICATION, PUPLILS ARE SLOW TO REACT TO LIGHT/DO NOT TRACK/ARE EQUALLY ROUND, PT DOES RESPOND TO PHYSICAL TOUCH AND SOUNDS BY OPENING HER EYES AND INCREASING MOVEMENT AND VOCALIZATION, PT DOES PULL HAND AWAY FROM NAILBED PRESS, PT IS A TWO PERSON ASSIT IN THE BED FOR Q2T. CONTINUOUS SPO2, SPO2 GREATER THAN 90% ON 7 L O2 VIA THE OXYMASK, PT RR ELEVATED INTO THE 20 S, PT HAVING OCCASIONAL WEAK COUGH. CONTINUOUS TELE MONITORING, JUNCTIONAL 80-90 S, DEED FOR CHEST P/P DUE TO PT MENTAL STATUS, SBP ELEVATED BUT NOT WITHIN PERAMETERS FOR MEDICATION MANAGEMENT PER ORDERS, STRONG PULSES PRESENT T/O. HYPOACTIVE BOWEL TONES PRESENT IN ALL 4Q, PT ON STRICK NPO. DWYER CATH IS SECURE/PATENT/DRAINING TO GRAVITY, URINE YELLOW IN COLOR. PAIN ASSESSED USING THE FLACC SCALE/PT MEDICATED PER ORDERS. ATTEMPTED TO DO ORAL CARE ON PT THIS SHIFT BUT WAS UNABLE TO PT WOULD NOT OPEN HER MOUTH AND CLENCHED JAW WHEN THIS RN ATTEMPTED TO OPEN HER MOUTH. AT THE START OF THIS SHIFT PT HAD AN EPISODE OF ASPARATING ON HER OWN SECRETIONS AND DESATURING/STAFF UNABLE TO ASSIST PT WITH CLEARING AIRWAY DUE TO PT CLENCHING JAW/PT WAS ABLE TO RECOVER ON HER OWN/MD MADE AWARE OF EVENT, DAUGHTER AT BEDSIDE T/O THE NIGHT. BED LOWEST POSITION, CALL LIGHT IN REACH, AWAITING TO GIVE REPORT TO ONCOMING RN.
[2024-08-17] MEDS ORDERED: Cefepime HCl 2,000 MG in NS 100 ML IV SCH (08:00)
[2024-08-17] MEDS ORDERED: Furosemide 10 MG / ML 2ML Vial IV SCH (09:52)
[2024-08-17] MEDS ORDERED: Dexamethasone Sodium Phosphate 4 MG/ML 5ML VIAL IV SCH (12:00)
[2024-08-17] MEDS ORDERED: Dexamethasone Sodium Phosphate 4 MG/ML 1ML Vial IV SCH (12:00)
[2024-08-17] MEDS ORDERED: TPN Consult Notification XX ONE (12:10)
--- NOTE | 2024-08-17 16:00 | NUR ---
TRANSFER TO ICU THIS RN ASSUMED CARE OF PT AT APPROX 0700. PT RESPONDS TO PAINFUL STIMULI, NOT OPENING EYES WHEN WOKEN, MOANS INTERMITTENTLY. PT NECK STIFF. PT WHOLE BODY INTERMITTENTLY TENSING & OCCASSIONAL WHOLE BODY TREMORS. PT UNABLE TO FOLLOW SIMPLE COMMANDS. PT RESISTANT TO ANY ATTEMPTS FOR ORAL CARE OR REPOSITIONING. PT REQUIRING 2 PERSON MAX ASSIST FOR REPOSITIONING. BUE & BLE EDEMA. EXTREMITIES ELEVATED ON PILLOWS. PT RESISTANT TO ORAL CARE, BITING DOWN SIGNIFICANTLY W/ ANY ATTEMPT TO USE SUCTION SWABS TO CLEAN PT MOUTH. THIS AFTERNOON PT MORE TOLERANT OF ORAL CARE. THIS RN ABLE TO REMOVE CASTS FORMED ON ROOF OF MOUTH. PT COUGHING UP THICK CARMONA SPUTUM, THIS RN ABLE TO SUCTION SPUTUM IF PT NOT SWALLOWING SPUTUM. PT THEN ASPIRATING ON SECRETIONS, DESAT TO 70s W/ THIS RN UNABLE TO SUCTION PT D/T PT CLAMPING DOWN. PT ATTEMPTING TO COUGH BUT UNABLE TO GET SECRETIONS UP. NC RETURNED TO OXYMASK & O2 INCREASED. RT CALLED TO RM FOR POTENTIAL ROLL UP HELPER SUCTION. PT O2 BACK IN 90s & PT NO LONGER CLAMPING DOWN UPON RT ARRIVAL. DISCUSSED W/ FAMILY CONCERNS OF THIS RECURRING. PT VSS. SPO2 > 92% ON 4-7L OXYMASK OR NC. MONITOR SHOWING JUNCTIONAL RHYTHM, HR 90s-105. PPN & ABX INFUSING PER ORDERS. DWYER CATH PATENT & DRAINING YELLOW URINE. CARE DISCUSSED W/ ICU STAFF & MD W/ DECISION FOR PT TO BE TRANSFERRED TO ICU. PT TAKEN TO ICU-3 BY ICU STAFF @ APPROX 1530.
--- NOTE | 2024-08-17 16:49 | NUR ---
INTUBATION 1650 50MG PROPOFOL 1652 50MG PROPOFOL 1654 30MG PROPOFOL [address] NI. BILATERAL BS AUSCULTATED. POSITIVE ETC02 NOTED. 8.0 TUBE AT 25CM TEETH, OG TUBE PLACED, + COUGH, SWALLOW RESPIRATORY AT BEDSIDE SETTING UP VENT
[2024-08-17] MEDS ORDERED: Parenteral Electolytes 40 ML,Potassium Phosphate Dibasic 30 MM,Multivitamins 10 ML,ZINC... IV SCH (17:00)
[2024-08-17] MEDS ORDERED: propofoL 100 ML IV ONE (17:08)
[2024-08-17] MEDS ORDERED: propofoL 100 ML IV SCH (17:10)
[2024-08-17] MEDS ORDERED: LORazepam 2 MG/ML 1ML Injection IV PRN (17:15)
[2024-08-17] MEDS ORDERED: FentaNYL Citrate 50 MCG/ML 2 ML Injection IV PRN (17:15)
[2024-08-17] MEDS ORDERED: Cetylpyridinium Chloride 1 EA MISC MT SCH ×2 (17:15→20:00)
[2024-08-17] MEDS ORDERED: propofoL 100 ML IV PRN (17:25)
[2024-08-17 17:48] LABS: Base Excess Venous 10.2 mmol/L; Bicarbonate Venous 33.1 mmol/L (24.0-30.0); PCO2 Venous 35.3 mmHg (38-42)
[2024-08-17 17:49] LABS: pH Blood Venous 7.57 (7.34-7.37)
[2024-08-17] MEDS ORDERED: Insulin Regular 100 UNIT/ML 10ML Vial SC SCH (18:00)
--- NOTE | 2024-08-17 18:45 | NUR ---
TRANSFER OF CARE APPROXIMATELY 1700 PATIENT EYES IN A FIXED DOWNWARD GAZE, NOT REACTIVE TO LIGHT BUT EQUAL BILATERALY IN SIZE. UNABLE TO RESPONSED VERBALLY OR FOLLOW DIRECTIONS. PATIENT HAVING VISIBLE DIFFUSE JERKING MOVEMENTS LASTING 10-30 SECS. NO PURPOSEFUL MOVEMENT OF LIMBS. +GAG/COUGH. PATIENT SWALLOW AFFECTED WHILE JERKING MOVMENTS OCCUR UNABLE TO CLEAR AIRWAY EFFECTIVELY AFTER EVENTS, APPEARS SOMEWHAT DELAYED, AUDIBLE POOLING AND DELAYED SWALLOW. DIFFICULT TO SUCTION DUE TO RIGIDITY IN JAW/MOUTH. SOME VISIBLE BLOOD IN MOUTH UPON ARRIVAL. DR NI AT BEDSIDE, DISCUSSION HELD WITH FAMILY - AND DAUGHTER AND DECISION MADE TO INTUBATE. LUNGS BIBASILAR CRACKLES/CORASE. VENT SETTINGS ACVC 14/400/5/30. O2 SATS MAINTAINING ABOVE 95% ON CURRENT SETTINGS. ETT 8.0, 25CM AT TEETH OG TUBE PLACED WELL. PPN AND CEFEPIME AT BEDSIDE AWAITING AVAILBLE ACCESS TO START. ABDOMEN IS SOFT, HYPOTONIC BOWEL TONES. SCATTERED BRUISING AND PETECHIAE TO BLE AND BUE- PRIOR IV SITES. RAISED SKIN COLORED BUMPS WITH DRY SKIN VISIBLE SCATTERED BUE/BLE
[2024-08-17 19:57] LABS: Vancomycin, Trough 15.6 ug/mL (5.0-10.0)
[2024-08-17] MEDS ORDERED: Lactobacil 2-S.Thermo-Bifido 1 1 Cap PO SCH (21:00)
[2024-08-18] VITALS (92 sets, daily range): BP systolic 85–146; BP diastolic 38–129
[2024-08-18] MEDS ORDERED: Hydrogen Peroxide 1.5 % Solution MT SCH ×2
--- NOTE | 2024-08-18 | NUR ---
ASSUMED CARE AT 1900 PATIENT IS INTUBATED AND SEDATED ON PROPOFOL AND GIVEN PRN ATIVAM FOR AGITATION. SP02 100% ON VENT AC VC+ 14/400/5/30%, RR 15, LS COARSE WITH THICK CARMONA SECRETIONS. HR SR 80s, BP STABLE. DWYER PATENT AND DRAINING TO GRAVITY. TUBE FEED STARTED AT 2350, PIVOT 1.5 AT 25 MLS/HR. INFUSING PPN WELL POSSIBLE WITH THE IV ACCESS AVAILABLE. PATIENT REPOSITIONED AND ORAL CARE DONE.
[2024-08-18 04:18] LABS: BASOPHILS ABSOLUTE AUTO 0.02 K/mm3 (0.00-0.23); BASOPHILS PERCENT AUTO 0 % (0-2); EOSINOPHILS PERCENT AUTO 0 % (0-6); Hematocrit 26.4 % (33.0-51.0); Hemoglobin 8.3 g/dL (11.5-16.0); IMMATURE GRAN ABSOLUTE AUTO 0.24 K/mm3 (0.00-0.10); IMMATURE GRAN PERCENT AUTO 1 % (0-1); LYMPHOCYTES ABSOLUTE AUTO 0.51 K/mm3 (0.84-5.20); LYMPHOCYTES PERCENT AUTO 3 % (21-46); MONOCYTES ABSOLUTE AUTO 1.02 K/mm3 (0.16-1.47); MONOCYTES PERCENT AUTO 6 % (4-13); Mean Corpuscular HGB 27.8 pg (26.0-34.0); Mean Corpuscular HGB Conc 31.4 g/dL (31.5-36.5); Mean Corpuscular Volume 88 fL (80-100); Mean Platelet Volume 11.7 fL (9.1-12.4); NEUTROPHILS ABSOLUTE AUTO 15.18 K/mm3 (1.96-9.15); NEUTROPHILS PERCENT AUTO 90 % (41-73); NRBC ABSOLUTE 0.54 K/mm3 (0.00-0.02); NRBC Auto 3.2 /100 WBC (0.0-0.2); Platelet Count 158 K/mm3 (150-400); RDW Coefficient Variation 16.2 % (11.7-14.2); RDW Standard Deviation 51.2 fL (35.1-46.3); Red Blood Cell Count 2.99 M/mm3 (3.80-5.20); White Blood Cell Count 16.97 K/mm3 (4.00-11.30)
[2024-08-18 04:38] LABS: Albumin, Blood 1.8 g/dL (3.4-5.0); Albumin/Globulin Ratio 0.8 (0.8-1.8); Bilirubin, Total 0.8 mg/dL (0.1-1.0); Bun/Creatinine Ratio 48.6 (12.0-20.0); Calcium, Blood 7.7 mg/dL (8.5-10.1); Creatinine, Blood 0.6 mg/dL (0.40-1.00); Globulin, Blood 2.4 g/dL (2.2-4.0); Magnesium, Blood 2.2 mg/dL (1.6-2.4); Phosphorus, Blood 1.7 mg/dL (2.5-4.9); Potassium, Blood 3.7 mmol/L (3.5-5.5); Total Protein, Blood 4.2 g/dL (6.4-8.2)
[2024-08-18] MEDS ORDERED: Potassium Phosphate Dibasic 30 MM in Dextrose 5% 500 ML IV ONE (06:30)
--- NOTE | 2024-08-18 06:44 | NUR ---
SHIFT SUMMARY PATIENT IS INTUBATED AND SEDATED ON PROPOFOL, MEDICATED PRN WITH ATIVAN FOR RESTLESS, COUGHING, CHEWING ON ETT. GRIMACING AND WITHDRAWS TO TOUCH. NO EYE OPENING OR FOLLOWING COMMANDS. SP02 98% ON VENT AC VC+ 14/400/5/30%, RR 16. HR SR 80s-90s. BP STABLE. OG WITH PIVOT 1.5 AT 25 MLS/HR. DWYER PATENT AND DRAINING TO GRAVITY. PPN INFUSING. PATIENT REPOSITIONED Q2 HOURS. BATH DONE. CT DONE OVERNIGHT. REPLACING KPHOS THIS AM PER HOSPITALIST.
[2024-08-18] MEDS ORDERED: Pantoprazole Sodium 40 MG Injection IV SCH (09:00)
[2024-08-18] MEDS ORDERED: Insulin Regular 100 UNIT/ML 10ML Vial SC SCH (12:00)
--- NOTE | 2024-08-18 12:04 | NUR ---
REASSESSMENT PT REMAINS INTUBATED AND SEDATED. OPENS EYES WITH ORAL CARE. PUPILS 5MM AND SLUGGISH, EQUAL. SR IN THE 90S MAP 86. LUNGS HAVE A FEW CRACKELS IN THE BASES. NO SIGNS OF INTOLERANCE WITH TUBE FEED. DR. NI ROUNDED AND GAVE OK TO INCREASE SS UP TO HIGH SCALE BLOOD SUGARS HAVE BEEN OVER 200. TPN PAUSED THIS MORNING IN ORDER TO GIVE ALL PT'S ANTIBIOTICS. DR. NI AWARE AND GAVE ORDERS TO FINISH THIS BAG, BUT HOLD TONIGHT'S BAG SINCE PT IS TOELRATING TUBE FEED SO FAR. DWYER DRAINING YELLOW URINE. PT'S HSUBAND WAS AT THE BEDSIDE AND UPDATE BY NURSING STAFF AND DR. NI.
--- NOTE | 2024-08-18 17:21 | NUR ---
SHIFT SUMMARY PT REMAINS INTUBATED AND SEDATED. PROPOFOL TITRATED DOWN TO 5MCG/KG/HR AND STAYED THAT WAY FOR ABOUT 2 HOURS. PT'S WAS AT THE BEDSIDE AT THIS TIME. PT NEVER OPENED HER EYES, DID NOT FOLLOW COMMANDS. EVENTUALLY PT WAS GRIMACING MORE AND COUGHING FREQUENTLY SO PROPOFOL TITRATED BACK UP FOR HER COMFORT. LUNGS ARE CLEAR IN THE UPPERS, FEW CRACKLES IN THE BASES. SMALL AMT OF SECRETIONS FROM ETT AND ORALLY. SR, MAP 90. 2+ EDEMA IN BLE. DWYER DRAINING YELLOW URINE.
[2024-08-18] MEDS ORDERED: dilTIAZem HCL 30 MG TAB PT SCH (18:00)
[2024-08-18] MEDS ORDERED: Amantadine HCl 100 MG Cap PO SCH (21:00)
[2024-08-19] VITALS (88 sets, daily range): BP systolic 67–155; BP diastolic 46–117
[2024-08-19 05:41] LABS: BASOPHILS ABSOLUTE AUTO 0.06 K/mm3 (0.00-0.23); BASOPHILS PERCENT AUTO 0 % (0-2); EOSINOPHILS PERCENT AUTO 0 % (0-6); Hemoglobin 8.7 g/dL (11.5-16.0); IMMATURE GRAN ABSOLUTE AUTO 0.86 K/mm3 (0.00-0.10); IMMATURE GRAN PERCENT AUTO 4 % (0-1); LYMPHOCYTES ABSOLUTE AUTO 0.45 K/mm3 (0.84-5.20); LYMPHOCYTES PERCENT AUTO 2 % (21-46); MONOCYTES ABSOLUTE AUTO 1.65 K/mm3 (0.16-1.47); MONOCYTES PERCENT AUTO 7 % (4-13); Mean Corpuscular HGB 27.5 pg (26.0-34.0); Mean Corpuscular HGB Conc 31.1 g/dL (31.5-36.5); Mean Corpuscular Volume 89 fL (80-100); Mean Platelet Volume 11.7 fL (9.1-12.4); NEUTROPHILS ABSOLUTE AUTO 19.97 K/mm3 (1.96-9.15); NEUTROPHILS PERCENT AUTO 87 % (41-73); NRBC ABSOLUTE 0.45 K/mm3 (0.00-0.02); Platelet Count 159 K/mm3 (150-400); RDW Coefficient Variation 16.6 % (11.7-14.2); RDW Standard Deviation 53.1 fL (35.1-46.3); Red Blood Cell Count 3.16 M/mm3 (3.80-5.20); White Blood Cell Count 22.99 K/mm3 (4.00-11.30)
[2024-08-19 05:47] LABS: Base Excess Venous 7.7 mmol/L; Bicarbonate Venous 30.7 mmol/L (24.0-30.0); PCO2 Venous 42.3 mmHg (38-42); pH Blood Venous 7.48 (7.34-7.37)
[2024-08-19] MEDS ORDERED: Levothyroxine Sodium 0.125 MG Tab PT SCH (06:00)
--- NOTE | 2024-08-19 06:11 | NUR ---
SHIFT SUMMERY PT REMAINS INTUBATED W/ETT INTACT AND PATENT TO THE VENT. OXYGEN SAT HAVE BEEN >95% THROUGHOUT THE NIGHT. TF ON HOLD AT 0400 FOR LP W/ANESTHESIA TODAY. DWYER CATH INTACT PATENT AND DRAINING TO GRAVITY. PT IS SEDATED W/PROPOFOL, SEE [facility]. PT IS SR ON THE MANAGEMENT LEAD. BP HAS BEEN WNL. PT HAS HAD NO ACUTE CHANGES OVERNIGHT.
[2024-08-19 06:20] LABS: Albumin, Blood 1.8 g/dL (3.4-5.0); Albumin/Globulin Ratio 0.8 (0.8-1.8); Bilirubin, Total 0.7 mg/dL (0.1-1.0); Bun/Creatinine Ratio 50.9 (12.0-20.0); Creatinine, Blood 0.69 mg/dL (0.40-1.00); Globulin, Blood 2.4 g/dL (2.2-4.0); Magnesium, Blood 2.2 mg/dL (1.6-2.4); Phosphorus, Blood 2.4 mg/dL (2.5-4.9); Potassium, Blood 3.9 mmol/L (3.5-5.5); Total Protein, Blood 4.2 g/dL (6.4-8.2)
[2024-08-19] MEDS ORDERED: Potassium Phosphate Dibasic 20 MM in Dextrose 5% 500 ML IV ONE (06:45)
[2024-08-19] MEDS ORDERED: Calcium Gluconate 10% 1,000 MG in NS 50 ML IV ONE (06:45)
[2024-08-19 09:18] LABS: Appearance, CSF Bloody (Clear); Color, CSF Red (No Color)
[2024-08-19 09:29] LABS: Automated CSF RBC Count 0.052 M/mm3 (0-0); Automated CSF WBC Count 0.145 K/mm3 (0-5)
[2024-08-19 09:34] LABS: WBC Count, CSF 145 /mm3 (0-5)
[2024-08-19 09:36] LABS: RBC Count, CSF 52000 /mm3 (0-0)
[2024-08-19 10:36] LABS: Lymphocytes, CSF 7 % (40-80); Monocytes, CSF 4 % (15-45); Neutrophils, CSF 89 % (0-6)
--- NOTE | 2024-08-19 11:59 | NUR ---
REASSESSMENT PT HAD LP THIS MORNING AND TOLERATED IT WELL. PT LAID SUPINE FOR 2 HOURS AFTER SO TUBE FEED REMAINED ON HOLD UNTIL SHE COULD HAVE HEAD OF BED ELEVATED A LITTLE. SEDATION TURNED OFF AT ABOUT 1030. PT HAS OPENED EYES SPONTANEOUSLY, BUT NOT TO COMMAND. NOT FOLLOWING DIRECTIONS. PT HAS MADE LITTLE TO NO EFFORT TO MOVE HER ARMS, EVEN WHEN POSITIONING FOR LP, SO RESTRAINTS WERE DC'D. LUNGS ARE CLEAR, MINIMAL ETT SECRETIONS, MODERATE ORAL SECRETIONS. SR, MAP ABOVE 100 WITH SEDATION OFF. PT IS PASSING GAS, NO SIGNS OF INTOLERANCE OF TUBE FEED, ABDOMEN SOFT. DWYER DRAINING YELLOW URINE. PT'S WAS AT THE BEDSIDE THIS MORNING AND HAS BEEN UPDATED.
[2024-08-19 13:48] LABS: Cryptococcus Neoformans/Gattii Not Detected (NOT DETECT); Enterovirus Not Detected (NOT DETECT); Escherichia Coli K1 Detected (NOT DETECT); Haemophilus Influenza Not Detected (NOT DETECT); Herpes Simplex Virus 1 Not Detected (NOT DETECT); Herpes Simplex Virus 2 Not Detected (NOT DETECT); Human Herpesvirus 6 Not Detected (NOT DETECT); Human Parechovirus Not Detected (NOT DETECT); Listeria Monocytogenes Not Detected (NOT DETECT); Neisseria Meningitidis Not Detected (NOT DETECT); Streptococcus Agalactiae Not Detected (NOT DETECT); Streptococcus Pneumoniae Not Detected (NOT DETECT); Varicella Zoster Virus Not Detected (NOT DETECT)
[2024-08-19 14:27] LABS: Automated CSF RBC Count 0.012 M/mm3 (0-0)
[2024-08-19 14:30] LABS: Automated CSF WBC Count 0.048 K/mm3 (0-5); RBC Count, CSF 12000 /mm3 (0-0); WBC Count, CSF 48 /mm3 (0-5)
[2024-08-19 15:39] LABS: Appearance, CSF Hazy (Clear); Color, CSF Red (No Color); Lymphocytes, CSF 5 % (40-80); Monocytes, CSF 5 % (15-45); Neutrophils, CSF 90 % (0-6)
--- NOTE | 2024-08-19 17:14 | NUR ---
SHIFT SUMMARY PT REMAINS INTUBATED AND SEDATED. PT WAS OFF SEDATION FOR ABOUT 3 HOURS TODAY. SHE OPENED HER EYES SPONTANEOUSLY A FEW TIMES, BUT NOT TO COMMAND. SHE DID NOT FOLLOW DIRECTIONS. PT WAS CHEWING ON THE ETT A LOT TOWARD THE END OF THE 3 HOURS AND GRIMACING SO SEDATION RESTARTED AFTER TALKING WITH DR. NI. LUNGS REMAIN CLEAR. MODERATE AMT OF THICK OFF WHITE SECRETIONS FROM ETT AND MODERATE AMT OF THICK, DARK BROWN, OLD BLOOD APPEARING ORAL SECRETIONS. SR, MAP IN THE 90S CURRENTLY. DWYER DRAINING YELLOW URINE. TUBE FEEDS AT GOAL OF 30ML/HR, NO SIGNS OF INTOLERANCE. PT'S HAS SPENT MOST OF THE DAY AT THE BEDSIDE AND HAS BEEN UPDATED THROUGHOUT THE SHIFT,
[2024-08-19 19:42] LABS: Vancomycin, Trough 23.8 ug/mL (5.0-10.0)
[2024-08-19] MEDS ORDERED: Lactobacil 2-S.Thermo-Bifido 1 1 Cap PT SCH (21:00)
[2024-08-19] MEDS ORDERED: Vancomycin HCL 750 MG in NS 250 ML IV SCH (23:00)
[2024-08-20] VITALS (47 sets, daily range): BP systolic 92–160; BP diastolic 52–86
[2024-08-20 04:29] LABS: BASOPHILS ABSOLUTE AUTO 0.05 K/mm3 (0.00-0.23); BASOPHILS PERCENT AUTO 0 % (0-2); EOSINOPHILS ABSOLUTE AUTO 0.02 K/mm3 (0.00-0.68); EOSINOPHILS PERCENT AUTO 0 % (0-6); Hematocrit 26.7 % (33.0-51.0); Hemoglobin 8.2 g/dL (11.5-16.0); IMMATURE GRAN ABSOLUTE AUTO 0.88 K/mm3 (0.00-0.10); IMMATURE GRAN PERCENT AUTO 5 % (0-1); LYMPHOCYTES ABSOLUTE AUTO 0.46 K/mm3 (0.84-5.20); LYMPHOCYTES PERCENT AUTO 2 % (21-46); MONOCYTES ABSOLUTE AUTO 1.63 K/mm3 (0.16-1.47); MONOCYTES PERCENT AUTO 8 % (4-13); Mean Corpuscular HGB 27.4 pg (26.0-34.0); Mean Corpuscular HGB Conc 30.7 g/dL (31.5-36.5); Mean Corpuscular Volume 89 fL (80-100); Mean Platelet Volume 12.2 fL (9.1-12.4); NEUTROPHILS ABSOLUTE AUTO 16.72 K/mm3 (1.96-9.15); NEUTROPHILS PERCENT AUTO 85 % (41-73); NRBC ABSOLUTE 0.27 K/mm3 (0.00-0.02); NRBC Auto 1.4 /100 WBC (0.0-0.2); Platelet Count 137 K/mm3 (150-400); RDW Coefficient Variation 16.8 % (11.7-14.2); RDW Standard Deviation 53.1 fL (35.1-46.3); Red Blood Cell Count 2.99 M/mm3 (3.80-5.20); White Blood Cell Count 19.76 K/mm3 (4.00-11.30)
[2024-08-20 04:51] LABS: Albumin, Blood 1.7 g/dL (3.4-5.0); Albumin/Globulin Ratio 0.7 (0.8-1.8); Bilirubin, Total 0.6 mg/dL (0.1-1.0); Bun/Creatinine Ratio 58.5 (12.0-20.0); Calcium, Blood 6.7 mg/dL (8.5-10.1); Creatinine, Blood 0.68 mg/dL (0.40-1.00); Globulin, Blood 2.3 g/dL (2.2-4.0); Magnesium, Blood 2.3 mg/dL (1.6-2.4); Phosphorus, Blood 3.3 mg/dL (2.5-4.9); Potassium, Blood 3.9 mmol/L (3.5-5.5)
--- NOTE | 2024-08-20 06:16 | NUR ---
SHIFT SUMMARY PT REMAINS INTUBATED AND SEDATED, RASS -1/-2, GRIMACES WITH ORAL CARE AND SUCTION AND BITES ON ETT WITH TURNED AND REPOSITIONING, GAG INTACT, ETT IN PLACE AND SECURED WITH COMMERCIAL TUBED DOOLEY AT 26 CM AT TEETH, OG PATENT AND SECURED TO ETT WITH TAPE, PIVOT 1.5 INFUSING AT GOAL RATE OF 30 ML/HR, TOLERATING WELL, DWYER PATENT AND DRAINING TO GRAVITY, SR 80x BP STABLE, MAP >65, AFEBRILE, ON VENT FIO2 30%, SPO2 >92%, BUE +2-+3 EDEMA AND WEEPING, BLE +2 EDEMA, PROPOFOL INFUSING AT 35 MCG/KG/HR, NO DISTRESS NOTED, INCONTINENT OF BM X2, HOB UP 35 DEGREES, SIDE RAILS UP X2
--- NOTE | 2024-08-20 07:52 | NUR ---
ASSUMPTION OF CARE THIS NURSE ASSUMED CARE AT APPROXIMATELY AT 0700. PT RESTING IN BED SEDATED AND INTUBATED WITH THE AT BEDSIDE. PROPOFOL TT AT 35MCG THAT HAS BEEN PAUSED FOR A NEURO ASSESSMENT, SEE CHARTING DOCUMENTATION FOR MORE DETAILS. TF AT 30. PT HAS NO S/S OF DISTRESS OR DISCOMFORT. WILL CONTINUE WITH THE PLAN OF CARE.
[2024-08-20] MEDS ORDERED: Thiamine HCl 100 MG Tab PT SCH (09:00)
[2024-08-20] MEDS ORDERED: CefTRIAXone Sodium 2,000 MG in NS 100 ML IV SCH (09:00)
[2024-08-20] MEDS ORDERED: Furosemide 10 MG / ML 2ML Vial IV STA (09:56)
[2024-08-20] MEDS ORDERED: Albumin (Human) 25gm/100ml 100 ML IV ONE (10:00)
[2024-08-20] MEDS ORDERED: Midazolam HCl 1MG / ML 2ML Vial IV PRN (11:20)
[2024-08-20] MEDS ORDERED: FentaNYL Citrate 50 MCG/ML 2 ML Injection IV PRN (11:20)
--- NOTE | 2024-08-20 18:11 | NUR ---
SHIFT SUMMARY PT INTUBATED RESTING IN BED. PT FAMILY STATED THAT SHE WAS FOLLOWED BY NEURO DR CLARKE AUSTIN IN [place] AND THAT IS WHERE THE NEURO RELATED IMAGES SUCH THE EEG SHOULD BE FORWARDED. PT IS OFF PROPOFOL SINCE APPROXIMATELY 1000 WITH PRN PUSHES ON EMAR. PT WILL GRIMACE WITH PAIN, AND WILL WIGGLE TOES ON COMMANDS. PT WILL BRIEFLY OPEN EYES WHEN SPOKEN TO. EEG COMPLETED TODAY, SEE CHART FOR RESULTS. PT HAD DARK TARRY STOOL, NOTIFIED AND IS AWARE. PLAVIX AND ASA DC. WILL CONTINUE WITH THE PLAN OF CARE.
--- NOTE | 2024-08-20 22:21 | NUR ---
ASSUMED CARE AT 1900 PATIENT IS INTUBATED. RESPONDS TO VERBAL STIMULI, NODS YES/NO. FOLLOWS COMMANDS. EXTREME WEAKNESS IN ALL EXTREMEITIES, ABLE TO WIGGLE FINGERS AND TOES. NO SEDATION AT THIS TIME, MEDICATED PRN PER EMAR. VENT AC VC 14/400/5/30%, RR 17. HR SR 80s, BP STABLE. OG WITH TF AT GOAL RATE. DWYER PATENT AND DRAINING TO GRAVITY. LARGE DARK TARRY STOOL AT START OF SHIFT. BED BATH DONE. REPOSITIONED. SCDs ON. CALL LIGHT IN REACH
[2024-08-21] VITALS (82 sets, daily range): BP systolic 119–180; BP diastolic 57–125
[2024-08-21 04:02] LABS: BASOPHILS ABSOLUTE AUTO 0.03 K/mm3 (0.00-0.23); BASOPHILS PERCENT AUTO 0 % (0-2); EOSINOPHILS ABSOLUTE AUTO 0.02 K/mm3 (0.00-0.68); EOSINOPHILS PERCENT AUTO 0 % (0-6); Hematocrit 24.6 % (33.0-51.0); Hemoglobin 7.6 g/dL (11.5-16.0); IMMATURE GRAN ABSOLUTE AUTO 0.81 K/mm3 (0.00-0.10); IMMATURE GRAN PERCENT AUTO 4 % (0-1); LYMPHOCYTES ABSOLUTE AUTO 0.42 K/mm3 (0.84-5.20); LYMPHOCYTES PERCENT AUTO 2 % (21-46); MONOCYTES ABSOLUTE AUTO 1.59 K/mm3 (0.16-1.47); MONOCYTES PERCENT AUTO 9 % (4-13); Mean Corpuscular HGB 27.2 pg (26.0-34.0); Mean Corpuscular HGB Conc 30.9 g/dL (31.5-36.5); Mean Corpuscular Volume 88 fL (80-100); NEUTROPHILS ABSOLUTE AUTO 15.58 K/mm3 (1.96-9.15); NEUTROPHILS PERCENT AUTO 84 % (41-73); NRBC ABSOLUTE 0.13 K/mm3 (0.00-0.02); NRBC Auto 0.7 /100 WBC (0.0-0.2); Platelet Count 120 K/mm3 (150-400); RDW Coefficient Variation 17.2 % (11.7-14.2); RDW Standard Deviation 52.4 fL (35.1-46.3); Red Blood Cell Count 2.79 M/mm3 (3.80-5.20); White Blood Cell Count 18.45 K/mm3 (4.00-11.30)
[2024-08-21 04:24] LABS: Albumin, Blood 2.1 g/dL (3.4-5.0); Bilirubin, Total 0.5 mg/dL (0.1-1.0); Bun/Creatinine Ratio 65.2 (12.0-20.0); Calcium, Blood 7.4 mg/dL (8.5-10.1); Creatinine, Blood 0.71 mg/dL (0.40-1.00); Globulin, Blood 2.2 g/dL (2.2-4.0); Magnesium, Blood 2.5 mg/dL (1.6-2.4); Phosphorus, Blood 2.8 mg/dL (2.5-4.9); Potassium, Blood 3.6 mmol/L (3.5-5.5); Total Protein, Blood 4.3 g/dL (6.4-8.2)
--- NOTE | 2024-08-21 06:04 | NUR ---
SHIFT SUMMARY PATIENT RESPONDS TO VERBAL STIMULI, FOLLOWS COMMANDS, NODS YES/NO. MEDICATED FOR DISCOMFORT PRN PER EMAR. SP02 100% ON VENT AC VC 14/400/5/30%. HR SR 80, BP STABLE. OG WITH TF AT GOAL RATE. DWYER PATENT AND DRAINING TO GRAVITY. TWO MEDIUM LOOSE TARRY STOOLS THIS SHIFT. REPOSITIONED Q2 HOURS.
--- NOTE | 2024-08-21 07:21 | NUR ---
ASSUMPTION OF CARE: ASSUMED CARE OF PATIENT. PATIENT RESTING WITH AT BEDSIDE. PATIENT TOLERATING VENT WITH PROPOFOL ON STANDBY. PATIENT TRANSITIONED TO SPONTANSEOUS AROUND 0630 PER NIGHT RN. CURRENT SETTINGS 10//30%. SPO2 AT 100%. RATE IN THE TEENS WITH TIDAL VOLUMES 500-600. END TIDAL AT 29. NO DISTRESS NOTED AT THIS TIME. VITALS STABLE WITH MAPS >65 AND HR IN THE 70S. DWYER IN PLACE AND FREELY DRAINING YELLOW URINE. SCDS IN PLACE. NIGHT RN REPORTS BLACK, STICKY, TARRY STOOL. PIVOT 1.5 INFUSING THROUGH OG TUBE AT ORDERED 30ML/HR.
[2024-08-21] MEDS ORDERED: NS 100 ML IV ONE (08:40)
[2024-08-21] MEDS ORDERED: Clopidogrel Bisulfate 75 MG Tab PO SCH (09:00)
[2024-08-21] MEDS ORDERED: Aspirin 81 MG Chew PO SCH (09:00)
[2024-08-21 10:48] LABS: Vancomycin, Trough 19.9 ug/mL (5.0-10.0)
[2024-08-21] MEDS ORDERED: Vancomycin HCL 1,500 MG in NS 250 ML IV SCH (12:00)
--- NOTE | 2024-08-21 12:28 | NUR ---
Spiritual Care Visit. Pt. is intubated and resting while in a recliner chair. No family are present. Prayer was made for the Pt., spouse, family and staff. Will remain available to the Pt. and family.
--- NOTE | 2024-08-21 15:23 | NUR ---
PT REMAINS INTUBATED, HAD SEDATION VACATION TODAY. ACCORDING TO BEDSIDE RN AND PT'S , SHE DID QUITE WELL. FOLLOWED COMMANDS. SPINAL TAP FOUND ECOLI, CURRENTLY ON ANTIBIOTICS TO CORRECT THIS. PT REMAINS A FULL CODE AND KRISTY REMAINS HOPEFUL AT PATIENT'S BEDSIDE.
--- NOTE | 2024-08-21 19:17 | NUR ---
SHIFT SUMMARY: NEURO: PATIENT DROWSY AND EASILY AWOKEN WITH VERBAL STIMULI. WILL OPEN EYES SPONTANEOUSLY AT TIMES. PATIENT WEAKLY FOLLOWING DIRECTIONS. ABLE TO NOD YES/NO IN RESPONSE TO QUESTIONS. PATIENT DENIED PAIN THROUGHOUT THE SHIFT. PATIENT UP TO THE CHAIR FOR ABOUT 7 HOURS. PATIENT TOLERATED WELL. CARDIAC: VITALS STABLE WITH MAPS >65. FOR MOST OF THE AFTERNOON, PATIENT IN SINUS TACH WITH HR IN THE 100S. DR. HEDRICK AWARE. PATIENT RECEIVED HYDRALAZINE PRN ONCE FOR BPS SUSTAINING OVER 160. EDEMA CONTINUES TO BE PRESENT IN ALL FOUR EXTREMITIES. ELEVATION USED THROUGHOUT THE SHIFT. RESPIRATORY: PATIENT ON SPONTANEOUS THROUGHOUT THE SHIFT. PATIENT TOLERATED WELL AND DID NOT REQUIRE ANY PRNS FOR TOLERANCE. AT THE END OF SHIFT, SETTINGS 6/5/30%. RR 14-18, SPO2 100%. LUNG SOUNDS CONTINUE TO BE COARSE. CARMONA SPUTUM WITH SUCTION. GI/: TUBE FEED INCREASED TO 40ML/HR TODAY AT 12:30 PER NEW FEED ORDERS. PATIENT HAD A LIQUID BOWEL MOVEMENT THAT WAS DARK BROWN. DWYER IN PLACE AND DRAINING YELLOW URINE. COLOR AND AMOUNT IMPROVED POST LASIX ADMINISTRATION. PSYCHSOCIAL: PATIENT CALM AND COOPERATIVE. PATIENT REPORTED ANXIETY AT TIMES THAT SHE WAS ABLE TO MANAGE. 'S AND DAUGHTERS PRESENCE AT BEDSIDE ALSO APPEARED TO HELP WITH HER COMFORT.
--- NOTE | 2024-08-21 21:45 | NUR ---
ASSUMED CARE AT 1900 PATIENT IS ALERT AND FOLLOWING COMMANDS. VERY WEAK AND UNABLE TO LIF EXTREMITIES, DOES MOVE FINGERS AND TOES. STARTED ON PROPOFOL AND SWITCHED TO AC VC 14/400/5/30% FOR THE NIGHT. HR SR 90s. BP STABLE. OG WITH TF AT GOAL. DWYER PATENT AND DRAINING TO GRAVITY. MEDIPORT DRESSING CHANGED. CALL LIGHT IN REACH.
[2024-08-21 22:21] LABS: HSV 1 SUBTYPE BY PCR Not Detected; HSV 2 SUBTYPE BY PCR Not Detected; HSV SUBTYPE SOURCE CSF
[2024-08-22] VITALS (57 sets, daily range): BP systolic 128–176; BP diastolic 71–129
[2024-08-22 04:38] LABS: Bun/Creatinine Ratio 81.2 (12.0-20.0); Calcium, Blood 7.6 mg/dL (8.5-10.1); Creatinine, Blood 0.62 mg/dL (0.40-1.00); Magnesium, Blood 2.6 mg/dL (1.6-2.4); Phosphorus, Blood 2.6 mg/dL (2.5-4.9); Potassium, Blood 3.9 mmol/L (3.5-5.5)
[2024-08-22 04:51] LABS: BASOPHILS ABSOLUTE AUTO 0.07 K/mm3 (0.00-0.23); BASOPHILS PERCENT AUTO 0 % (0-2); EOSINOPHILS PERCENT AUTO 0 % (0-6); Hematocrit 26.9 % (33.0-51.0); Hemoglobin 8.3 g/dL (11.5-16.0); IMMATURE GRAN ABSOLUTE AUTO 1.08 K/mm3 (0.00-0.10); IMMATURE GRAN PERCENT AUTO 4 % (0-1); LYMPHOCYTES ABSOLUTE AUTO 0.57 K/mm3 (0.84-5.20); LYMPHOCYTES PERCENT AUTO 2 % (21-46); MONOCYTES ABSOLUTE AUTO 1.88 K/mm3 (0.16-1.47); MONOCYTES PERCENT AUTO 7 % (4-13); Mean Corpuscular HGB 28.2 pg (26.0-34.0); Mean Corpuscular HGB Conc 30.9 g/dL (31.5-36.5); Mean Corpuscular Volume 92 fL (80-100); NEUTROPHILS ABSOLUTE AUTO 22.93 K/mm3 (1.96-9.15); NEUTROPHILS PERCENT AUTO 86 % (41-73); NRBC ABSOLUTE 0.16 K/mm3 (0.00-0.02); NRBC Auto 0.6 /100 WBC (0.0-0.2); Platelet Count 151 K/mm3 (150-400); RDW Standard Deviation 53.9 fL (35.1-46.3); Red Blood Cell Count 2.94 M/mm3 (3.80-5.20); White Blood Cell Count 26.53 K/mm3 (4.00-11.30)
--- NOTE | 2024-08-22 05:58 | NUR ---
SHIFT SUMMARY PATIENT ON PROPOFOL THROUGH THE NIGHT, TURNED OF SEDATION AT APPROX 0530, SWITCHED BACK TO SPONTANEOUS ON THE VENT AT APPROX 0600, SP02 100%. HR SR 90s, BP STABLE. OG WITH TUBE FEED AT GOAL, PAUSED THIS AM FROM 0500 TO 0700 FOR AM MEDS. DWYER PATENT AND DRAINING TO GRAVITY. NO ACUTE CHANGES THIS SHIFT
[2024-08-22] MEDS ORDERED: Aspirin 81 MG Chew PO SCH (09:00)
[2024-08-22] MEDS ORDERED: Clopidogrel Bisulfate 75 MG Tab PO SCH (09:00)
[2024-08-22] MEDS ORDERED: Meropenem 2,000 MG in NS 250 ML IV SCH (12:00)
[2024-08-22] MEDS ORDERED: Hydrocortisone Sod Succinate 100 MG Vial IV SCH (13:00)
--- NOTE | 2024-08-22 18:34 | NUR ---
CONOR REMAINS ON THE VENTILATOR, SPONTANEOUS. SHE CONTINUES TO BE AWAKE AND NOT SEDATED. ANSWERING QUESTIONS WITH HEAD NOD AND SHAKES, APPROPRIATE AND FOLLOWING COMMANDS. DENIES REQUEST FOR PAIN MEDS OR SLEEPING MEDICATION. EVIDENCE OF DIURESIS WITH LESS PUFFINESS THROUGHOUT THE DAY. DWYER CONTINUES TO DRAIN TO GRAVITY. NO BM TODAY. VISIT FROM THERAPY DOG TODAY WITH SMILES FROM THE PATIENT.
--- NOTE | 2024-08-22 20:18 | NUR ---
ASSUMED CARE AT 1900 PATIENT IS ALERT AND ORIENTED TO SELF AND FOLLOWING COMMANDS. VERY WEAK, UNABLE TO MOVE EXTREMITIES MUCH. DENIES PAIN. SP02 100% ON VENT SPONT PS 6/5 FI02 30%. HR SR 90s, BP STABLE. OG WITH TF AT GOAL RATE. DWYER PATENT AND DRAINING TO GRAVITY.
[2024-08-23] VITALS (48 sets, daily range): BP systolic 59–153; BP diastolic 21–111
[2024-08-23 03:48] LABS: Hematocrit 26.4 % (33.0-51.0); Hemoglobin 7.9 g/dL (11.5-16.0); Mean Corpuscular HGB 27.4 pg (26.0-34.0); Mean Corpuscular HGB Conc 29.9 g/dL (31.5-36.5); Mean Corpuscular Volume 92 fL (80-100); Mean Platelet Volume 12.9 fL (9.1-12.4); NRBC ABSOLUTE 0.33 K/mm3 (0.00-0.02); NRBC Auto 0.9 /100 WBC (0.0-0.2); Platelet Count 179 K/mm3 (150-400); RDW Coefficient Variation 18.4 % (11.7-14.2); RDW Standard Deviation 54.7 fL (35.1-46.3); Red Blood Cell Count 2.88 M/mm3 (3.80-5.20); White Blood Cell Count 37.64 K/mm3 (4.00-11.30)
[2024-08-23 04:17] LABS: BASOPHILS PERCENT MAN 0 % (0-2); EOSINOPHILS PERCENT MAN 0 % (0-6); LYMPHOCYTES ABSOLUTE MAN 0.37 K/mm3 (0.84-5.20); LYMPHOCYTES PERCENT MAN 1 % (21-46); METAMYELOCYTE ABSOLUTE MAN 0.75 K/mm3 (0.00-0.00); METAMYELOCYTE PERCENT MAN 2 % (0-0); MONOCYTES ABSOLUTE MAN 1.88 K/mm3 (0.16-1.47); MONOCYTES PERCENT MAN 5 % (4-13); MYELOCYTE ABSOLUTE MAN 0.37 K/mm3 (0.00-0.00); MYELOCYTE PERCENT MAN 1 % (0-0); NEUTROPHILS ABSOLUTE MAN 33.87 K/mm3 (1.96-9.15); PLASMA CELL ABSOLUTE MAN 0.37 K/mm3 (0.00-0.00); PLASMA CELLS PERCENT MAN 1 % (0-0); SEG NEUTROPHILS PERCENT MAN 90 % (41-73); TOTAL CELLS COUNTED 100
[2024-08-23 04:18] LABS: Alanine Aminotransfer (ALT/SGP 225 U/L (12-78); Albumin/Globulin Ratio 0.8 (0.8-1.8); Alk Phos 202 U/L (50-136); Anion Gap 10 mmol/L (3-11); Aspartate Aminotrans (AST/SGOT 89 U/L (12-37); Bilirubin, Total 0.4 mg/dL (0.1-1.0); Blood Urea Nitrogen 57 mg/dL (8-24); Bun/Creatinine Ratio 79.7 (12.0-20.0); CO2, Blood 29 mmol/L (21-32); Calcium, Blood 7.5 mg/dL (8.5-10.1); Chloride, Blood 118 mmol/L (98-108); Creatinine, Blood 0.72 mg/dL (0.40-1.00); Globulin, Blood 2.6 g/dL (2.2-4.0); Glomerular Filtration Rate 90 (60-); Glucose, Blood 245 mg/dL (70-99); Magnesium, Blood 2.8 mg/dL (1.6-2.4); Phosphorus, Blood 2.9 mg/dL (2.5-4.9); Potassium, Blood 3.9 mmol/L (3.5-5.5); Sodium, Blood 153 mmol/L (136-145); Total Protein, Blood 4.6 g/dL (6.4-8.2); Triglycerides 131 mg/dL (30-160)
--- NOTE | 2024-08-23 06:12 | NUR ---
SHIFT SUMMARY PATIENT REMAINS ALERT AND ORIENTED TO SELF AND FOLLOWS COMMANDS. VENT SETTING UNCHANGED, REMAINED ON SPONTANEOUS THROUGHT THE NIGHT. COUGHING WHEN ASKED AND MODERATE AMOUNT OF THICK WHITE SPUTUM FROM ETT. HR SR 90s, BP STABLE. OG WITH TF, PAUSED THIS AM FOR AM MEDS. DWYER PATENT AND DRAINING TO GRAVITY. ONE LARGE LOOSE BROWN/BLACK BM THIS SHIFT. BED BATH DONE. REPOSITIONED Q2 HOURS.
--- NOTE | 2024-08-23 10:43 | NUR ---
ETCO2 DECREASING, PT'S HERT RATE INCREASING, PT ASKED IF SHE NEEDED BACK ON THE VENTILATOR AND SHE NODDED HER HEAD. MICHAEL RT CAME AND RETURNED TO HER TO PREV.SETTINGS 14/400/5/30%. AT BEDSIDE.
[2024-08-23 12:14] LABS: Hematocrit 27.1 % (33.0-51.0); Hemoglobin 8.2 g/dL (11.5-16.0)
[2024-08-23 12:23] LABS: Vancomycin, Trough 19.1 ug/mL (5.0-10.0)
[2024-08-23 12:50] LABS: C DIFFICILE DNA NEGATIVE (Negative)
[2024-08-23 13:49] LABS: HIV 1,2 COMBO ANTIGEN/ANTIBODY Negative (Negative)
[2024-08-23 16:43] LABS: BASOPHILS ABSOLUTE AUTO 0.15 K/mm3 (0.00-0.23); BASOPHILS PERCENT AUTO 0 % (0-2); EOSINOPHILS PERCENT AUTO 0 % (0-6); Hematocrit 27.9 % (33.0-51.0); Hemoglobin 8.1 g/dL (11.5-16.0); IMMATURE GRAN ABSOLUTE AUTO 1.92 K/mm3 (0.00-0.10); IMMATURE GRAN PERCENT AUTO 4 % (0-1); LYMPHOCYTES ABSOLUTE AUTO 1.63 K/mm3 (0.84-5.20); LYMPHOCYTES PERCENT AUTO 3 % (21-46); MONOCYTES ABSOLUTE AUTO 2.99 K/mm3 (0.16-1.47); MONOCYTES PERCENT AUTO 6 % (4-13); Mean Corpuscular HGB 28.1 pg (26.0-34.0); NEUTROPHILS ABSOLUTE AUTO 42.54 K/mm3 (1.96-9.15); NEUTROPHILS PERCENT AUTO 86 % (41-73); NRBC ABSOLUTE 0.87 K/mm3 (0.00-0.02); NRBC Auto 1.8 /100 WBC (0.0-0.2); Platelet Count 172 K/mm3 (150-400); RDW Coefficient Variation 18.7 % (11.7-14.2); RDW Standard Deviation 58.9 fL (35.1-46.3); Red Blood Cell Count 2.88 M/mm3 (3.80-5.20); White Blood Cell Count 49.23 K/mm3 (4.00-11.30)
[2024-08-23 16:45] LABS: Mean Corpuscular Volume 97 fL (80-100); Mean Platelet Volume 13.4 fL (9.1-12.4)
[2024-08-23 17:24] LABS: Albumin, Blood 1.9 g/dL (3.4-5.0); Albumin/Globulin Ratio 0.8 (0.8-1.8); Bilirubin, Total 0.6 mg/dL (0.1-1.0); Calcium, Blood 7.7 mg/dL (8.5-10.1); Creatinine, Blood 0.89 mg/dL (0.40-1.00); Globulin, Blood 2.3 g/dL (2.2-4.0); Potassium, Blood 4.5 mmol/L (3.5-5.5); Total Protein, Blood 4.2 g/dL (6.4-8.2)
--- NOTE | 2024-08-23 17:38 | NUR ---
RESPONDED TO CODE BLUE. SUPPORTIVE VISIT TO FAMILY. RELAYED INFORMATION BETWEEN PROVIDER AND FAMILY. PATIENT HAD MULTIPLE ROUNDS OF CPR. PULSE WAS RESTORED. FAMILY RELAYED PATIENT HEALTH HISTORY AND HER DECLINE IN THE LAST SEVERAL MONTHS. PATIENTS AND DAUGHTER ARE PRESENT. DISCUSSED CASE WITH PROVIDERS AT BEDSIDE. PC WILL CONTINUE TO PROVIDE SUPPORT
[2024-08-23] MEDS ORDERED: NS 1,000 ML IV ONE ×3 (17:46→18:45)
[2024-08-23] MEDS ORDERED: Lactated Ringer's 1,000 ML IV SCH (17:55)
[2024-08-23] MEDS ORDERED: NS 1,000 ML IV SCH (17:55)
[2024-08-23] MEDS ORDERED: Hydrocortisone Sod Succinate 100 MG Vial IV SCH (18:00)
[2024-08-23 18:41] LABS: PCO2 Arterial 30.4 mmHg (35-45); PO2 Arterial 491 mmHg (80-100); pH Blood Arterial 7.37 (7.35-7.45)
--- NOTE | 2024-08-23 19:01 | NUR ---
AROUND 1630 RT MICHAEL MENTIONED THAT PATIENT WAS NOT LOOKING GOOD, UPON EXAM PT WAS NOT FOCUSING ON SPEAKER, WAS NO LONGER FOLLOW COMMANDS, HAD A RIGHT UPWARD GAZE AND DYSCONJUGATE. ORDERED EKG, LABS. PT CONTINUED TO HAVE PHYS- IOLOGIC CHANGES, HR BEGAN TO DECREASE, RESP PATTERN CHANGED, CALLED RAILROAD TRACK MECHANIC TO ROOM, IN ROOM, PT WENT IN TO [facility] AND A CODE BLUE WAS CALLED. SEE CODE SHEET FOR DETAILS. ROSC WITH PT ON DOPAMINE AND NOREPINEPHRINE, DR. REDDY IN ON CONSULT AND DID BEDSIDE ULTRASOUND. ORDERED FLUID REPLACEMENT. CONTINUE CURRENT TREATMENT WITH FLUID VOLUME REPLACEMENT. REPORT TO SHANIA EDMONDSON.
[2024-08-23 20:00] LABS: Hematocrit 23.7 % (33.0-51.0); Hemoglobin 6.9 g/dL (11.5-16.0)
[2024-08-23] MEDS ORDERED: Dopamine/Dextrose 250 ML IV SCH (22:10)
[2024-08-23] MEDS ORDERED: NS 500 ML IV SCH ×2 (22:20)
--- NOTE | 2024-08-23 22:46 | NUR ---
ASSUMPTION OF CARE ASSUMED CARE OF PATIENT AT 1900, BEDSIDE SHIFT REPORT RECEIVED FROM SOFIA RN. PT RESTING IN BED INTUBATED BUT NOT SEDATED. EYES OPEN PT BLINKING, NOT MAKING EYE CONTACT OR TRACKING. PT DOES NOT WITHDRAW EXTREMITIES TO NOXIOUS STIMULI, DOES NOT FOLLOW DIRECTION WHEN PROMPTED. PT RIGHT PUPIL IS BIGGER THAN THE LEFT, PUPILS SLUGGISH, SUPERVISOR HARDBOARD AWARE. HEAD CT ORDERED AND COMPLETED. HR 100-120'S SINUS. AT THE START OF SHIFT LEVOPHED WAS INFUSING AT 25MCG/MIN AND DOPAMINE WAS INFUSING AT 10MCG/KG/MIN, BOTH MEDCIATIONS TITRATED UP, SEE CRITICAL CARE FLOWSHEET FOR TITRATIONS. LEVOPHED CURRENTLY INFUSING AT 50MCG/MIN, DOPAMINE INFUSING AT 15MCG/KG/MIN TO MAINTAIN MAP >65. PT RECEIVING 500ML BOLUS OF NS AT THIS TIME WELL 1 UNIT PRBC'S. VENT SETTINGS CURRENTLY AC/VC+ 16/400/5/35%, OXYGEN SATURATION >95%. ABDOMEN SOFT, BOWEL TONES HYPOACTIVE. PT HAD EPISODE OF VOMITING THIS SHIFT, MEDICATED PER EMAR. OG TUBE IN PLACE TO LIS WITH LIQUID ORANGE OUTPUT. DWYER IN PLACE PATENT DRAINING YELLOW URINE TO GRAVITY. POWERGLIDE IN PLACE TO YONY, MEDIPORT TO LEFT CHEST ACCESSED. LR INFUSING AT 75MLS/HR. BED IN LOWEST POSITON, CARE CONTINUES.
[2024-08-23] MEDS ORDERED: Vasopressin 20 UNITS in NS 100 ML IV SCH (22:55)
[2024-08-24] VITALS (100 sets, daily range): BP systolic 68–185; BP diastolic 25–139
[2024-08-24 02:15] LABS: Bun/Creatinine Ratio 64.5 (12.0-20.0); Creatinine, Blood 0.98 mg/dL (0.40-1.00); Hematocrit 33.5 % (33.0-51.0); Hemoglobin 10.6 g/dL (11.5-16.0); Mean Corpuscular HGB 30.2 pg (26.0-34.0); Mean Corpuscular HGB Conc 31.6 g/dL (31.5-36.5); Mean Corpuscular Volume 95 fL (80-100); Mean Platelet Volume 12.8 fL (9.1-12.4); NRBC ABSOLUTE 2.01 K/mm3 (0.00-0.02); Platelet Count 120 K/mm3 (150-400); RDW Coefficient Variation 17.8 % (11.7-14.2); RDW Standard Deviation 55.9 fL (35.1-46.3); Red Blood Cell Count 3.51 M/mm3 (3.80-5.20)
[2024-08-24 02:17] LABS: White Blood Cell Count 102.74 K/mm3 (4.00-11.30)
[2024-08-24 03:01] LABS: BAND PERCENT MAN 2 % (0-8); BASOPHILS ABSOLUTE MAN 1.02 K/mm3 (0.00-0.23); BASOPHILS PERCENT MAN 1 % (0-2); EOSINOPHILS PERCENT MAN 0 % (0-6); LYMPHOCYTES ABSOLUTE MAN 1.02 K/mm3 (0.84-5.20); LYMPHOCYTES PERCENT MAN 1 % (21-46); MONOCYTES ABSOLUTE MAN 5.13 K/mm3 (0.16-1.47); MONOCYTES PERCENT MAN 5 % (4-13); MYELOCYTE PERCENT MAN 4 % (0-0); NEUTROPHILS ABSOLUTE MAN 91.43 K/mm3 (1.96-9.15); SEG NEUTROPHILS PERCENT MAN 87 % (41-73); TOTAL CELLS COUNTED 100
--- NOTE | 2024-08-24 04:00 | NUR ---
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 DR. OCHOA TO BEDSIDE TO EVALUATE THE PT. ORDERS RECEIVED FOR ALBUMIN, SEE EMAR. ORDER ALSO RECEIVED TO START VASOPRESSIN AND ATTEMPT TO TITRATE DOPAMINE OFF. CARE CONTINUES.
[2024-08-24 04:04] LABS: Potassium, Blood 4.4 mmol/L (3.5-5.5)
[2024-08-24] MEDS ORDERED: Albumin (Human) 25gm/100ml 100 ML IV ONE (04:30)
[2024-08-24 04:33] LABS: Base Excess Venous -9.9 mmol/L; Bicarbonate Venous 16.8 mmol/L (24.0-30.0); PCO2 Venous 28.5 mmHg (38-42); pH Blood Venous 7.35 (7.34-7.37)
[2024-08-24] MEDS ORDERED: Dose Adjust by Pharmacy XX STA (04:50)
--- NOTE | 2024-08-24 05:46 | NUR ---
SHIFT SUMMARY PT CONTINUES TO REST IN BED, INTUBATED BUT NOT SEDATED. PT OPENS EYES, DOES NOT MAKE EYE CONTACT OR TRACK. RIGHT PUPIL REMAINS LARGER THAN THE LEFT, BOTH SLUGGISH TO LIGHT. PT DOES NOT WITHDRAW EXTREMITIES TO NOXIOUS STIMULI. HR 90-120'S SINUS, LEVOPHED INFUSING AT 45MCG/MIN, VASOPRESSIN INFUSING AT 0.04 UNITS/MIN TO MAINTAIN MAP >65, SEE FLOWSHEET FOR TITRATIONS. DOPAMINE ON SB AT THIS TIME. VENT SETTINGS AC/VC+ 16/400/5/35%, OXYGEN SATURATION >95%. ABDOMEN SOFT, BOWEL TONES HYPOACTIVE. OG TUBE IN PLACE TO LIS. DWYER IN PLACE PATENT DRAINING YELLOW URINE TO GRAVITY. POWERGLIDE IN PLACE TO YONY INFUSING. MEDIPART TO LEFT CHEST ACCESED, INFUSING. LR INFUSING AT 75MLS/HR. BED IN LOWEST POSITION, CARE CONTINUES.
[2024-08-24] MEDS ORDERED: Hydrocortisone Sod Succinate 100 MG Vial IV SCH (08:00)
[2024-08-24] MEDS ORDERED: Albumin Human 50 ML IV SCH (09:05)
[2024-08-24 09:59] LABS: Hematocrit 23.3 % (33.0-51.0); Hemoglobin 7.7 g/dL (11.5-16.0)
[2024-08-24 16:14] LABS: Hematocrit 20.3 % (33.0-51.0); Hemoglobin 6.6 g/dL (11.5-16.0)
--- NOTE | 2024-08-24 17:06 | NUR ---
MET WITH FAMILY THIS SHIFT. PROVIDED THERAPUTIC CONVERSATION. IS AT BEDSIDE. WE DISCUSSED HER CURRENT CONDITION. ENDED MY VISIT WHEN ANOTHER VISITOR CAME IN. WILL CONTINUE TO FOLLOW AND ASSIST IN GOALS OF CARE.
--- NOTE | 2024-08-24 17:07 | NUR ---
CONOR REMAINS ON THE VENTILATOR, SETTINGS UNCHANGED. SHE CONTINUES WITH RIGHT PUPIL > LEFT BY 2MM. BOTH REACTIVE. TREMULOUS TO THE RIGHT SIDE INTERMITTENTLY T/O THE DAY. HAND SQUEEZES BUT NOT ON COMMAND. DWYER REMAINS WITH MINIMAL OUTPUT, RECTAL TUBE FILLING. OGT TO LIS WITH PINK RETURN. HANDS/ARMS REMAIN PUFFY AND WEEPING. FAMILY HAS BEEN IN AND OUT T/O THE SHIFT. DURING ORAL CARE SHE ACTS LIKE SHE IS MOVING HER LIPS AND MOUTH TO ASSIST SHE DID BEFORE HER INCIDENT YESTERDAY. SHE IS NOT OPENING HER EYES, SHE CONTINUES TO BLINK AND REM IS EVIDENT. NO OTHER VISIBLE SIGNS OF PURPOSEFUL MOVEMENT. REMAINS OFF PRESSORS.
[2024-08-24] MEDS ORDERED: Insulin Glargine-Yfgn 100 Unit/mL 3 ML SYR SC SCH (21:00)
[2024-08-24 21:40] LABS: Hematocrit 24.3 % (33.0-51.0); Hemoglobin 8.2 g/dL (11.5-16.0)
--- NOTE | 2024-08-24 22:07 | NUR ---
ASSUMPTION OF CARE ASSUMED CARE OF PATIENT AT 1900, BEDSIDE SHIFT REPORT RECEIVED FROM SOFIA RN. PT RESTING IN BED, INTUBATED BUT NOT SEDATED. PT OPENS EYES TO VERBAL/PHYSICAL STIMULATION. PT DOES NOT MAKE EYE CONTACT OR TRACK. PT GRIMACES AND MOVES MOUTH WITH ORAL CARE. PT APPEARS TO CLENCH HANDS/MOVE FINGERS REFLEXIVELY BUT DOESNT APPEAR TO BE PURPOSEFUL. PT DOES NOT FOLLOW DIRECTTION WHEN PROMPTED. PT WITHDRAWS BUE TO NOXIOUS STIMULI, DOES NOT WITHDRAW BLE. PT RIGHT PUPIL IS BIGGER THAN THE LEFT BY APPROXIMATELY 2MM, BOTH SLUGGISHLY REACTIVE TO LIGHT. PT LEFT FOOT IS PALE AND COOL TO THE TOUCH, UNABLE TO DOPPLE PEDAL PULSES ON THE LEFT, PT HAS POPILITEAL PULSE PRESENT ON THE LEFT, DR. VILLALOBOS AWARE. HR 70-80'S SINUS, MAP >65. VENT SETTINGS AC/VC+ 16/400/5/35%, OXYGEN SATURATION >95%. ABDOMEN FIRM, PT GRIMACES WITH PALPATION. OG TUBE IN PLACE TO LIS. RECTAL TUBE IN PLACE WITH LARGE AMOUNT OF LIQUID DARK GREEN OUTPUT. DWYER IN PLACE PATENT DRAINING YELLOW URINE TO GRAVITY, MINIMAL OUTPUT. POWERGLIDE IN PLACE TO YONY INFUSING LR @ 75MLS/HR. MEDIPORT ACCESSED TO LEFT CHEST INFUSING NS TKO. BED IN LOWEST POSITION, CARE CONTINUES.
[2024-08-24] MEDS ORDERED: DiphenhydrAMINE HCl 50 MG/ML 1ML Vial IV STA (22:55)
[2024-08-24] MEDS ORDERED: MethylPREDNISolone Sod Succ 40 MG VIAL IV STA (22:56)
[2024-08-24] MEDS ORDERED: Lactated Ringer's 1,000 ML IV SCH (23:40)
[2024-08-25] VITALS (10 sets, daily range): BP systolic 59–147; BP diastolic 51–112
[2024-08-25] MEDS ORDERED: Heparin Sodium,Porcine/0.5 NS 500 ML IV SCH (01:40)
--- NOTE | 2024-08-25 01:51 | NUR ---
PT UPDATE SPOKE WITH REGUADAVIDING PT LEFT LEG. INFORMED THE DRSebastian THAT THE LEFT FOOT IS WHITE AND COOL TO THE TOUCH, UNABLE TO OBTAIN DOPPLER PEDAL PULSES. PT HAS PRESENT POPLITEAL PULSE ON LEFT LEG. INFORMED THE DR. THAT THE UPPER LEG IS PINK AND WARM WITH CLEAR DEMARCATION AT APPROXIMATELY THE MID CALF, THE LOWER PORTIOON OF THE CALF/LEFT FOOT IS WHITE/PALE AND COLD. DR. VILLALOBOS IS ALSO AWARE. DR. VILLALOBOS ASSESED THE PATIENT AT THE BEDSIDE AND HAS CONSULTED/SPOKEN TO DR. LIPSCOMB REGUADAVIDING THIS. ULTRASOUND AND CTA COMPLETED OF THE LEFT LEG, PROVIDERS AWARE OF THE RESULTS, ORDERS RECEIVED TO INITIATE HEPARIN DRIP AT THIS TIME. CARE CONTINUES.
[2024-08-25 01:52] LABS: Hematocrit 23.3 % (33.0-51.0); Hemoglobin 7.9 g/dL (11.5-16.0); Mean Corpuscular HGB 29.9 pg (26.0-34.0); Mean Corpuscular HGB Conc 33.9 g/dL (31.5-36.5); Mean Corpuscular Volume 88 fL (80-100); NRBC ABSOLUTE 0.25 K/mm3 (0.00-0.02); NRBC Auto 0.6 /100 WBC (0.0-0.2); RDW Coefficient Variation 16.7 % (11.7-14.2); Red Blood Cell Count 2.64 M/mm3 (3.80-5.20); White Blood Cell Count 43.11 K/mm3 (4.00-11.30)
[2024-08-25 01:54] LABS: Anti-Xa UFH, PHA Monitoring <0.10 IU/mL; International Normalized Ratio 1.46; Platelet Count 29 K/mm3 (150-400); Prothrombin Time Results 15.2 Sec (9.7-11.5)
--- NOTE | 2024-08-25 02:10 | NUR ---
PT UPDATE PLT COUNT CRITICALLY LOW AT 29. CALLED AND INFORMED DR. VILLALOBOS OF THIS, ORDERS RECEIVED TO STOP HEPARIN DRIP AT THIS TIME AND REDRAW PLT LEVEL TO CONFIRM. HEPARIN DRIP STOPPED AT THIS TIME. DR. LIPSCOMB ALSO INFORMED. CARE CONTINUES.
[2024-08-25 02:18] LABS: BAND PERCENT MAN 3 % (0-8); BASOPHILS PERCENT MAN 0 % (0-2); EOSINOPHILS PERCENT MAN 0 % (0-6); LYMPHOCYTES ABSOLUTE MAN 0.43 K/mm3 (0.84-5.20); LYMPHOCYTES PERCENT MAN 1 % (21-46); MONOCYTES ABSOLUTE MAN 1.29 K/mm3 (0.16-1.47); MONOCYTES PERCENT MAN 3 % (4-13); MYELOCYTE ABSOLUTE MAN 0.86 K/mm3 (0.00-0.00); MYELOCYTE PERCENT MAN 2 % (0-0); NEUTROPHILS ABSOLUTE MAN 40.52 K/mm3 (1.96-9.15); SEG NEUTROPHILS PERCENT MAN 91 % (41-73); TOTAL CELLS COUNTED 100
[2024-08-25 02:37] LABS: Platelet Count 31 K/mm3 (150-400)
[2024-08-25 02:51] LABS: Albumin, Blood 2.1 g/dL (3.4-5.0); Albumin/Globulin Ratio 1.4 (0.8-1.8); Bilirubin, Total 2.1 mg/dL (0.1-1.0); Bun/Creatinine Ratio 46.3 (12.0-20.0); Calcium, Blood 6.9 mg/dL (8.5-10.1); Creatinine, Blood 1.9 mg/dL (0.40-1.00); Globulin, Blood 1.5 g/dL (2.2-4.0); Potassium, Blood 4.4 mmol/L (3.5-5.5); Total Protein, Blood 3.6 g/dL (6.4-8.2)
[2024-08-25] MEDS ORDERED: Morphine Sulfate 10 MG/ML 1MLSYR IV PRN (03:35)
[2024-08-25] MEDS ORDERED: LORazepam 2 MG/ML 1ML Injection IV PRN (03:40)
--- NOTE | 2024-08-25 03:46 | NUR ---
PT UPDATE PTS TO THE BEDSIDE. DR. VILLALOBOS SPOKE WITH THE PTS AND DAUGHTER REGUARDING PT LABS, LEFT LEG AND PT PROGNOSIS. ALL QUESTIONS ANSWERED AND OPTIONS DISCUSSED. PTS FAMILY HAS DECIDED THAT THEY WOULD LIKE TO GO COMFORT CARE AT THIS TIME. ORDERS RECEIVED FOR COMFORT CARE. AWAITING ADDITIONAL FAMILY MEMBERS BEFORE EXTUBATING. CARE CONTINUES.
--- NOTE | 2024-08-25 04:35 | NUR ---
EXTUBATION TO CC PT EXTUBATED TO CC AT APPROXIMATELY 0430. PT FAMILY STEPPED OUT OF THE ROOM DURING THE PROCEDURE. PT PREMEDICATED WITH MORPHINE PER EMAR. PT FAMILY BROUGHT BACK INTO ROOM POST EXTUBATION. CARE CONTINUES.
--- NOTE | 2024-08-25 05:24 | NUR ---
Pastoral care provided. Multiple family at the patient's bedside reminiscing and expressing love for the patient. Family requested prayer/blessing for the patient which was readily extended along with consolatory emotional support. Family appear to be be coping adequately and are appropriately tearful. PC support to remain available as needed
--- NOTE | 2024-08-25 05:51 | NUR ---
SHIFT SUMMARY NO ACUTE CHANGES SINCE LAST UPDATE. PT RESTING IN BED, MEDICATED PER EMAR FOR COMFORT. PT HR 100-110'S. PT ON RA, OXYGEN SATURATION 80-90'S. PASTORAL CARE VISITED WITH FAMILY/PATIENT PER FAMILY REQUEST. FAMILY AT THE BEDSIDE. CARE CONTINUES.
[2024-08-25] MEDS ORDERED: Artificial Tears Opth Oint 7 GM BOTHEYES PRN (09:45)
[2024-08-25] MEDS ORDERED: Morphine Sulfate 20 MG/1ML 1 ML Oral Syringe PO PRN (10:55)
[2024-08-25] MEDS ORDERED: Peg 400/Hypromellose/Glycerin 15 DROP/ML BTL BOTHEYES PRN (12:35)
--- NOTE | 2024-08-25 17:38 | NUR ---
SHIFT SUMMARY PT NOT RESPONDING TO TOUCH OR VERBAL STIMULI, OPENS EYES AT TIMES BUT DOES NOT TRACK. MANAGED PTs PAIN PER EMAR. PT RESTED PEACFULLY THROUGHOUT SHIFT WITH FAMILY AT BEDSIDE. DWYER CATH AND RECTAL TUBE REMAIN PATENT AND IN PLACE FOR PT COMFORT. PTs RESPIRATIONS ARE LABORED BUT MODERATELY REGULAR, ADMINISTERED ROXANOL WITH MINIMAL CHANGE IN BREATHING PATTERN. ORAL CARE PROVIDED. NO OTHER EVENTS, WILL REPORT TO ONCOMING RN.
--- NOTE | 2024-08-26 06:38 | NUR ---
END OF SHIFT SUMMARY: NO ACUTE EVENTS OVERNIGHT. END OF LIFE CARE PROVIDED. MEDS PROVIDED, SEE EMAR FOR DETAILS.
--- NOTE | 2024-08-26 09:00 | NUR ---
Tucker of care: Comfort care orders in place. See emar for medication administration. Patient resting comfortably in no distress with at bedside. Portillo catheter, rectal tube, & powerglide in place. Will continue to monitor.
--- NOTE | 2024-08-26 18:20 | NUR ---
Shift summary: Continues with comfort care orders & awaits medical bed. & family members at bs throughout day. See emar for medication administration. Portillo, rectal tube, powerglide in place. In NSR in 90s. RR 25-40. Will continue with plan of care.
--- NOTE | 2024-08-27 06:08 | NUR ---
SHIFT SUMMARY CONTINUE WITH COMFORT CARE, TURNED AND REPOSITIONED FOR COMFORT NEEDED PER FAMILY, CPOT 0 -2 WITH NOTED GRIMACES WITH REPOSITIONING, MEDICATED WITH ATIVAN 1MG AND MORPHINE 5 MG PER PER EMAR, RESP RATE 18-40s, HR 80-90s. PT OPEN MOUTH BREATHING, ORAL CARE DONE, FAMILY AND REMAIN AT BEDSIDE, DWYER, RECTAL TUBE AND RIGHT UPPER ARM POWERGLIDE PATENT
--- NOTE | 2024-08-27 07:30 | NUR ---
ASSUMED CARE OF PATIENT AT APPROXIMATELY 0700. REPORT RECEIVED FROM SHANIA LAWRENCE. PT ON COMFORT CARE, AT BEDSIDE DURING BEDSIDE REPORT. HR IN 80'S, TACHYPNEIC AND OPEN-MOUTH BREATHING AT 30. PG IN PLACE, RECTAL TUBE AND DWYER PATENT. SEE SHIFT ASSESSMENT FOR FULL DETAILS.
--- NOTE | 2024-08-27 10:42 | NUR ---
"Spiritual Care Visit | Adventism - Family Request Pt. is on comfort care and is mostly not responsive. Spouse and Pts. sister are present at bedside. The Pt. had planned to be baptized prior to her recent health decline. facilitate a discussion regarding the purpose and significance of yazidism for an individual. Upon hearing the testimony of her jane, and the embracing of her hope. The Pt. was baptized through annointing. Prayer is also given. A Palliative nurse is also present. 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 Will remain available to the Pt. and family."
[2024-08-28 06:09] LABS: STRONGYLOIDES AB, IGG BY ELISA 1.2 IV (<=0.9)
== END 2024-08-27 17:13 | DRG 811 ==
LOC: ER 12:13 → ERHOLD 18:08 → ICUE 18:08 → MEDS 18:08 → PCU 18:08 → MEDS 08-12 18:15 → PCU 08-14 13:25 → ICUE 08-17 16:09
PROVIDERS: Family Medicine; Internal Medicine; Internal Medicine Critical Care Medicine; Internal Medicine Interventional Cardiology; Student in an Organized Health Care Education/Training Program; ADMIT Internal Medicine
PROC: 3E02340 Introduction of Influenza Vaccine into Muscle, Percutaneous Approach (ICD-10-PCS; 2024-08-05)
PROC: 30233N1 Transfusion of Nonautologous Red Blood Cells into Peripheral Vein, Percutaneous Approach (ICD-10-PCS; 2024-08-05)
PROC: 0T9B70Z Drainage of Bladder with Drainage Device, Via Natural or Artificial Opening (ICD-10-PCS; 2024-08-07)
PROC: 3E0336Z Introduction of Nutritional Substance into Peripheral Vein, Percutaneous Approach (ICD-10-PCS; 2024-08-15)
PROC: 0D9670Z Drainage of Stomach with Drainage Device, Via Natural or Artificial Opening (ICD-10-PCS; 2024-08-15)
PROC: 5A1955Z Respiratory Ventilation, Greater than 96 Consecutive Hours (ICD-10-PCS; principal; 2024-08-17)
PROC: 0BH17EZ Insertion of Endotracheal Airway into Trachea, Via Natural or Artificial Opening (ICD-10-PCS; 2024-08-17)
PROC: 009U3ZX Drainage of Spinal Canal, Percutaneous Approach, Diagnostic (ICD-10-PCS; 2024-08-19)
PROC: 30233J1 Transfusion of Nonautologous Serum Albumin into Peripheral Vein, Percutaneous Approach (ICD-10-PCS; 2024-08-20)
PROC: 4A00X4Z Measurement of Central Nervous Electrical Activity, External Approach (ICD-10-PCS; 2024-08-20)
PROC: 3E03329 Introduction of Other Anti-infective into Peripheral Vein, Percutaneous Approach (ICD-10-PCS; 2024-08-22)
PROC: 3E033XZ Introduction of Vasopressor into Peripheral Vein, Percutaneous Approach (ICD-10-PCS; 2024-08-23)
PROC: 5A12012 Performance of Cardiac Output, Single, Manual (ICD-10-PCS; 2024-08-23)
PROC: 4A033R1 Measurement of Arterial Saturation, Peripheral, Percutaneous Approach (ICD-10-PCS; 2024-08-23)
DX: D50.0 Iron deficiency anemia secondary to blood loss (chronic) (principal); A41.51 Sepsis due to Escherichia coli [E. coli]; G00.8 Other bacterial meningitis; G92.8 Other toxic encephalopathy; R65.21 Severe sepsis with septic shock; J96.01 Acute respiratory failure with hypoxia; N39.0 Urinary tract infection, site not specified; Z51.5 Encounter for palliative care; Z66 Do not resuscitate; Z16.24 Resistance to multiple antibiotics; K56.7 Ileus, unspecified; E46 Unspecified protein-calorie malnutrition; E87.21 Acute metabolic acidosis; J90 Pleural effusion, not elsewhere classified; K92.1 Melena; E27.49 Other adrenocortical insufficiency; E87.0 Hyperosmolality and hypernatremia; I47.20 Ventricular tachycardia, unspecified; D68.32 Hemorrhagic disorder due to extrinsic circulating anticoagulants; B96.20 Unspecified Escherichia coli [E. coli] as the cause of diseases classified elsewhere; I10 Essential (primary) hypertension; G35 Multiple sclerosis; G25.81 Restless legs syndrome; E89.0 Postprocedural hypothyroidism; K21.9 Gastro-esophageal reflux disease without esophagitis; T45.525A Adverse effect of antithrombotic drugs, initial encounter; I25.10 Atherosclerotic heart disease of native coronary artery without angina pectoris; E78.5 Hyperlipidemia, unspecified; B96.89 Other specified bacterial agents as the cause of diseases classified elsewhere; G25.0 Essential tremor; I46.9 Cardiac arrest, cause unspecified; I70.222 Atherosclerosis of native arteries of extremities with rest pain, left leg; E87.70 Fluid overload, unspecified; E83.39 Other disorders of phosphorus metabolism; E87.6 Hypokalemia; R73.9 Hyperglycemia, unspecified; R57.1 Hypovolemic shock; D69.6 Thrombocytopenia, unspecified; Z96.641 Presence of right artificial hip joint; Z23 Encounter for immunization; Z95.5 Presence of coronary angioplasty implant and graft; Z91.041 Radiographic dye allergy status; Z79.02 Long term (current) use of antithrombotics/antiplatelets; I25.2 Old myocardial infarction; Z98.1 Arthrodesis status; Z87.891 Personal history of nicotine dependence; Z79.890 Hormone replacement therapy; Z85.820 Personal history of malignant melanoma of skin; Z79.82 Long term (current) use of aspirin; Z79.52 Long term (current) use of systemic steroids; Z68.24 Body mass index [BMI] 24.0-24.9, adult; Z78.1 Physical restraint status
CPT/HCPCS: 31500; 36415; 36416; 36430; 36600; 51701; 51702; 62270; 70450; 70551; 71045; 72125; 73706; 74176; 74177; 74230; 80048; 80053; 80069; 80202; 81001; 82330; 82530; 82533; 82607; 82746; 82803; 82945; 82947; 83605; 83615; 83735; 83880; 84100; 84145; 84146; 84157; 84443; 84478; 84484; 85014; 85018; 85025; 85027; 85049; 85520; 85610; 85651; 85730; 86038; 86140; 86592; 86682; 86850; 86900; 86901; 86923; 87040; 87070; 87077; 87086; 87186; 87205; 87389; 87483; 87493; 87529; 89051; 90656; 92526; 92610; 92611; 93005; 93010; 93926; 94002; 94003; 94640; 95819; 96365-59; 96366; 97110; 97129; 97130; 97162; 97165; 97530; 99285-25; A9270; C1751; J0133; J0290; J0360; J0612; J0692; J0696; J1100; J1171; J1200; J1265; J1644; J1720; J1815; J1940; J1953; J2060; J2185; J2250; J2270; J2405; J2470; J2543; J2704; J2919; J3010; J3370; J3411; J3480; J7030; J7040; J7050; J7060; J7120; P9016; P9047; Q9967